=== PATIENT | female | born 1960 | race Caucasian/White ===

== ENCOUNTER 2020-12-05 11:43 | Outpatient (REF) | payer OTHER, SELFPAY ==
--- NOTE | ~2020-12-05 | XR_ITS ---
EXAMINATION: XR BILATERAL HIPS WITH AP PELVIS CLINICAL INFORMATION: Pain in unspecified hip. COMPARISON: None TECHNIQUE: AP view of the pelvis and single views of each hip were obtained. FINDINGS: Visualized osseous structures are intact and normal in pattern and mineralization and cortication. There is sclerosis along the superior margin of the bilateral acetabula and minimal soft tissue calcification at the superolateral aspect of the right acetabulum. Minimal degenerative change of the sacroiliac joints. Pubic symphysis is unremarkable. There is enthesopathy at the greater trochanters bilaterally, right mildly greater than left. XR/XR hips DANIEL min 3V IMPRESSION: Minimal degenerative change of the hips and enthesopathy in the region of the greater trochanters.
== END 2020-12-05 11:44 | disposition home or self-care (01) ==
LOC: HO.HMGCX 11:43
PROVIDERS: PCP Internal Medicine; Visit Provider Internal Medicine
DX: M25.551 Pain in right hip (principal); M25.552 Pain in left hip
CPT/HCPCS: 73522

== ENCOUNTER 2023-03-23 10:26 | Outpatient (AMB) | payer OTHER, SELFPAY ==
--- NOTE | 2023-03-23 10:34 | MHC.PC.OV ---
Vital Signs 03/23/23 10:36 Height 5 ft 7 in Weight 211 lb BMI 33.0 BP 100/64 Blood Pressure Location Lt brachial Position Sitting Pulse 62 Pulse Source Pulse Oximeter Pulse Oximetry (%) 97 Oxygen Delivery Method Room Air Intake Visit Reasons: 6 month Follow up HTN Intake Note: Pt is here today for 6 months follow up visit. Allergies duloxetine [Cymbalta] Allergy (Unknown, Verified 03/23/23 10:38) dizziness simvastatin Allergy (Unknown, Verified 03/23/23 10:38) weakness Medication List - Last Reconciled 03/23/23 by Tia Bates MD flu vacc [id number] 6mos up(PF) mL IM hydrochlorothiazide 12.5 mg PO DAILY latanoprost 0.005% 1 drp ophthalmic (eye) DAILY lidocaine 5% 0 patches topical lisinopril 20 mg PO BID lovastatin 20 mg PO DAILY metoprolol succinate ER 100 mg (2 x 50 mg) PO DAILY pantoprazole 40 mg PO QAM pregabalin 150 mg (2 x 75 mg) PO BID spironolactone 12.5 mg (1/2 x 25 mg) PO DAILY Tobacco use date assessed: 03/23/23 Dental Screening Dental Screen Date: 03/23/23 Did you have a dental visit in the last 12 months?: Yes Did you have a dental problem in the last 6 months where you did not have access to dental care?: No Was dental information given to patient?: Patient has dentist HPI 6 month Follow up HTN HPI Details Patient presents for the follow-up on hypertension hyperlipidemia, stable on current medications. Her younger son is getting in October. [facility] Medical History Glaucoma Dysuria Lung nodule seen on imaging study Hip pain Lumbar radiculopathy, chronic Annual physical exam Multinodular goiter Anxiety GERD (gastroesophageal reflux disease) Cervical radiculopathy Hemangioma Hyperlipidemia HTN (hypertension) Hip pain, bilateral Lower back pain Surgical History H/O colonoscopy History of esophagogastroduodenoscopy (EGD) History of hysterectomy Family History Father Bone cancer Mother Stroke Social History Housing: House Alcohol intake: never Patient Tobacco Use Status: Never used Tobacco e-Cigarette/Vaping Use: Never Used Second Hand Smoke Exposure: No service: No Current occupational status: other Cognitive needs: No Hearing needs: No Vision needs: Yes Questionnaire Thrive Questionnaire Date Thrive assessed: 10/06/22 YESSI-7 AMB Questionnaire YESSI-7 Date YESSI - 7 assessed: 10/06/22 Source: Developed by Drs. Drake Hand, Adela Cordova, Branden Yanez and colleagues, with an educational emily from [employer]. Review of Systems Const All systems reviewed & are unremarkable except as noted in HPI and below Reports no additional complaints Eyes Reports no additional complaints ENT Reports no additional complaints Card Reports no additional complaints Resp Reports no additional complaints GI Reports no additional complaints Reports no additional complaints Physical exam (Primary Care) Vital Signs: Last Vital Signs Pulse 62 03/23/23 10:36 BP 100/64 03/23/23 10:36 Pulse Ox 97 03/23/23 10:36 Oxygen Delivery Method Room Air 03/23/23 10:36 BMI result Body Mass Index 33.0 Tobacco/Smoking Status: Tobacco use Status Tobacco use date assessed 03/23/23 03/23/23 10:39 Patient Tobacco Use Status Never used Tobacco 03/23/23 10:35 e-Cigarette/Vaping Use Never Used 03/23/23 10:35 Thrive Assessment: Date of Thrive Assessment Date Thrive assessed 10/06/22 03/23/23 10:35 Const General: no acute distress HENMT Face and sinus: Yes normal facial exam Mouth: Normal oral and palatal mucosa present Throat: Yes posterior oropharynx normal Resp Effort & Inspection: normal respiratory effort Auscultation: clear to auscultation bilaterally Cardio Rhythm: regular rhythm Heart sounds: S1 normal heart sound present and S2 normal heart sound present Assessment and Plan Assessment & Plan (1) Lumbar radiculopathy, chronic: Code(s): M54.16 - Radiculopathy, lumbar region Plan: Patient requested referral to physical therapy (2) HTN (hypertension): Code(s): I10 - Essential (primary) hypertension Plan: Continue current medications (3) Hyperlipidemia: Code(s): E78.5 - Hyperlipidemia, unspecified Plan: Continue statin (4) Annual physical exam: Code(s): Z00.00 - Encounter for general adult medical examination without abnormal findings Plan: Well-balanced diet regular exercise weight loss discussed with the patient . she will return for physical in October with fasting labs before Orders: Orders PT Evaluation and Treatment Today M54.16 - Radiculopathy, lumbar region TSH reflex Free T4 6 Months E78.5 - Hyperlipidemia, unspecified, I10 - Essential (primary) hypertension, Z00.00 - Encounter for general adult medical examination without abnormal findings Comprehensive [place]. Panel Fast 6 Months E78.5 - Hyperlipidemia, unspecified, I10 - Essential (primary) hypertension, Z00.00 - Encounter for general adult medical examination without abnormal findings Complete Blood Count Auto Diff 6 Months E78.5 - Hyperlipidemia, unspecified, I10 - Essential (primary) hypertension, Z00.00 - Encounter for general adult medical examination without abnormal findings Hemoglobin A1c 6 Months E78.5 - Hyperlipidemia, unspecified, I10 - Essential (primary) hypertension, Z00.00 - Encounter for general adult medical examination without abnormal findings Microalbumin, Random (w Creat) 6 Months E78.5 - Hyperlipidemia, unspecified, I10 - Essential (primary) hypertension, Z00.00 - Encounter for general adult medical examination without abnormal findings Lipid Panel 6 Months E78.5 - Hyperlipidemia, unspecified, I10 - Essential (primary) hypertension, Z00.00 - Encounter for general adult medical examination without abnormal findings Coding Level of Care Code Est Pt Level 3 (66156) Diagnoses Lumbar radiculopathy, chronic M54.16 HTN (hypertension) I10 Hyperlipidemia E78.5 Annual physical exam Z00.00
[2023-03-23 10:36] VITALS: BP 100/64; PULSE 62; O2SAT 97; BMI 33.0
== END 2023-03-23 12:12 | disposition home or self-care (01) ==
PROVIDERS: PCP Internal Medicine; Visit Provider Internal Medicine
DX: M54.16 Radiculopathy, lumbar region (principal); I10 Essential (primary) hypertension; E78.5 Hyperlipidemia, unspecified; Z00.00 Encounter for general adult medical examination without abnormal findings
CPT/HCPCS: 99213

== ENCOUNTER 2023-10-12 10:24 | Outpatient (AMB) | payer MEDICARE, SELFPAY ==
[2023-10-12 10:27] VITALS: BP 104/64; PULSE 62; O2SAT 97; BMI 33.2
--- NOTE | 2023-10-12 10:27 | MHC.PC.OV ---
Vital Signs 10/12/23 10:27 Height 5 ft 7 in Weight 212 lb BMI 33.2 BP 104/64 Blood Pressure Location Rt brachial Position Sitting Pulse 62 Pulse Source Pulse Oximeter Pulse Oximetry (%) 97 Oxygen Delivery Method Room Air Intake Visit Reasons: Annual PE Intake Note: Pt is here today for PE. Allergies duloxetine [Cymbalta] Allergy (Unknown, Verified 10/12/23 10:29) dizziness simvastatin Allergy (Unknown, Verified 10/12/23 10:29) weakness Medication List - Last Reconciled 10/12/23 by Tia Bates MD flu vacc [id number] 6mos up(PF) mL IM hydrochlorothiazide 12.5 mg PO DAILY latanoprost 0.005% 1 drp ophthalmic (eye) DAILY lidocaine 5% 0 patches topical lisinopril 20 mg PO BID lovastatin 20 mg PO DAILY metoprolol succinate ER 100 mg (2 x 50 mg) PO DAILY pantoprazole 40 mg PO QAM pregabalin 150 mg (2 x 75 mg) PO BID spironolactone 12.5 mg (1/2 x 25 mg) PO DAILY Tobacco use date assessed: 10/12/23 Dental Screening Dental Screen Date: 10/12/23 Did you have a dental visit in the last 12 months?: Yes Did you have a dental problem in the last 6 months where you did not have access to dental care?: No Was dental information given to patient?: Patient has dentist HPI Annual PE HPI Details Pt presents for PE. Patient's son is getting in [place] next week [facility] Medical History (Updated 10/12/23 @ 11:20 by Tia Bates MD) Glaucoma Dysuria Lung nodule seen on imaging study Hip pain Lumbar radiculopathy, chronic Annual physical exam Multinodular goiter Anxiety GERD (gastroesophageal reflux disease) Cervical radiculopathy Hemangioma Hyperlipidemia HTN (hypertension) Hip pain, bilateral Lower back pain Surgical History H/O colonoscopy History of esophagogastroduodenoscopy (EGD) History of hysterectomy Family History Father Bone cancer Mother Stroke Social History Housing: House Alcohol intake: never Patient Tobacco Use Status: Never used Tobacco e-Cigarette/Vaping Use: Never Used Second Hand Smoke Exposure: No service: No Current occupational status: other Cognitive needs: No Hearing needs: No Vision needs: Yes Questionnaire PHQ-9 Over the last 2 weeks, how often have you been bothered by any of the following problems? 1. Little interest or pleasure in doing things: not at all 2. Feeling down, depressed, or hopeless: not at all 3. Trouble falling or staying asleep, or sleeping too much: not at all 4. Feeling tired or having little energy: not at all 5. Poor appetite or overeating: not at all 6. Feeling bad about yourself - or that you are a failure or have let yourself or your family down: not at all 7. Trouble concentrating on things, such as reading the newspaper or watching television: not at all 8. Moving or speaking so slowly that other people could have noticed. Or the opposite - being so fidgety or restless that you have been moving around a lot more than usual: not at all 9. Thoughts that you would be better off or of hurting yourself in some way: not at all Total score: 0 Depression Screening Interpretation: Negative Depression Screening Done: Yes Source: Developed by Drs. Drake Hand, Adela Cordova, Branden Yanez and colleagues, with an educational emily from [employer]. Thrive Questionnaire Date Thrive assessed: 10/12/23 I am a: Patient What is your living situation today?: I have a steady place to live Within the past 12 months, did the food you bought not last and you didn't have the money to get more?: Never true Within the past 12 months, did you worry whether your food would run out before you got money to buy more?: Never true Do you have trouble paying for medicines?: No Do you have trouble getting transportation to medical appointments?: No Do you have trouble paying your heating and electricity bill?: No Do you have trouble taking care of your child, family member or friend?: No Do you have trouble with day-to-day activities such as bathing, preparing meals, shopping, managing finances, etc.?: No Are you currently unemployed and looking for a job?: No Are you interested in more education?: No Please select the resources that you would like help with: None THRIVE Score: 0 AUDIT C Alcohol Use Questionnaire (AUDIT-C) 1. How often do you have a drink containing alcohol?: Never 3. How often do you have six or more drinks on one occasion?: Never Total Score: 0 YESSI-7 AMB Questionnaire YESSI-7 Date YESSI - 7 assessed: 10/12/23 Feeling nervous, anxious, or on edge: 0 = Not at all Not being able to stop or control worryin = Not at all Worrying too much about different things: 0 = Not at all Trouble relaxin = Not at all Being so restless that it is hard to sit still: 0 = Not at all Becoming easily annoyed or irritable: 0 = Not at all Feeling afraid as if something awful might happen: 0 = Not at all Total YESSI-7 score (0-4 normal; 5-9 mild; 10-14 moderate; 15-21 severe): 0 Source: Developed by Drs. Drake Hand, Adela Cordova, Branden Yanez and colleagues, with an educational emily from [employer]. Review of Systems Const All systems reviewed & are unremarkable except as noted in HPI and below Reports no additional complaints Eyes Reports no additional complaints ENT Reports no additional complaints Card Reports no additional complaints Resp Reports no additional complaints GI Reports no additional complaints Reports no additional complaints Musc Reports no additional complaints Physical exam (Primary Care) Vital Signs: Last Vital Signs Pulse 62 10/12/23 10:27 BP 104/64 10/12/23 10:27 Pulse Ox 97 10/12/23 10:27 Oxygen Delivery Method Room Air 10/12/23 10:27 BMI result Body Mass Index 33.2 Tobacco/Smoking Status: Tobacco use Status Tobacco use date assessed 10/12/23 10/12/23 10:32 Patient Tobacco Use Status Never used Tobacco 10/12/23 10:32 e-Cigarette/Vaping Use Never Used 10/12/23 10:27 PHQ-9: PHQ-9 Score PHQ-9: Total score 0 10/12/23 10:32 Depression Screening Interpretation: Negative Thrive Assessment: Date of Thrive Assessment Date Thrive assessed 10/12/23 10/12/23 10:32 Const General: no acute distress HENMT Head: Yes normal to inspection Ears: hearing grossly normal bilaterally Face and sinus: Yes normal facial exam Mouth: Normal oral and palatal mucosa present Eyes General: appearance normal, both eyes and all related structures Neck Neck: Yes no lymphadenopathy and Yes supple Thyroid: diffusely enlarged Resp Effort & Inspection: normal respiratory effort Auscultation: clear to auscultation bilaterally Cardio Rhythm: regular rhythm Heart sounds: S1 normal heart sound present and S2 normal heart sound present GI Inspection: Yes normal to inspection Palpation (GI): Soft to palpation Percussion: Yes normal to percussion Auscultation: normal bowel sounds Assessment and Plan Assessment & Plan (1) Multinodular goiter: Comment: Kenzie's thyroiditis, 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 She is up-to-date with mammogram and colonoscopy Pap smear by director center (5) HTN (hypertension): Code(s): I10 - Essential (primary) hypertension Plan: Continue current medications follow-up in 6 months Coding Level of Care Code Est Pt Prev Care 40-64y(68958) Diagnoses Multinodular goiter E04.2 Lung nodule seen on imaging study R91.1 Hyperlipidemia E78.5 Annual physical exam Z00.00 HTN (hypertension) I10
== END 2023-10-12 11:21 | disposition home or self-care (01) ==
PROVIDERS: Visit Provider Internal Medicine
DX: E04.2 Nontoxic multinodular goiter (principal); R91.1 Solitary pulmonary nodule; E78.5 Hyperlipidemia, unspecified; Z00.00 Encounter for general adult medical examination without abnormal findings; I10 Essential (primary) hypertension
CPT/HCPCS: 99396

== ENCOUNTER 2024-03-28 09:29 | Outpatient (AMB) | payer MEDICARE, SELFPAY ==
[2024-03-28 09:35] VITALS: BP 110/70; PULSE 57; O2SAT 97; BMI 33.8
--- NOTE | 2024-03-28 09:35 | MHC.PC.OV ---
Vital Signs 03/28/24 09:35 Height 5 ft 7 in Weight 216 lb BMI 33.8 BP 110/70 Blood Pressure Location Lt brachial Position Sitting Pulse 57 Pulse Source Pulse Oximeter Pulse Oximetry (%) 97 Oxygen Delivery Method Room Air Intake Visit Reasons: 6 months f/u Intake Note: Pt is here today for 6 montha follow up visit. Allergies duloxetine [Cymbalta] Allergy (Unknown, Verified 03/28/24 09:36) dizziness simvastatin Allergy (Unknown, Verified 03/28/24 09:36) weakness Medication List - Last Reconciled 03/28/24 by Tia Bates MD flu vacc [id number] 6mos up(PF) mL IM hydrochlorothiazide 12.5 mg PO DAILY latanoprost 0.005% 1 drp ophthalmic (eye) DAILY lidocaine 5% 0 patches topical lisinopril 20 mg PO BID lovastatin 20 mg PO DAILY metoprolol succinate ER 100 mg (2 x 50 mg) PO DAILY pantoprazole 40 mg PO QAM pregabalin 150 mg (2 x 75 mg) PO BID spironolactone 12.5 mg (1/2 x 25 mg) PO DAILY Tobacco use date assessed: 03/28/24 Fall risk assessment: No Falls in past year Last assessed Fall Risk: 03/28/24 Dental Screening Dental Screen Date: 10/12/23 HPI 6 months f/u HPI Details Patient presents for the follow-up hypertension hyperlipidemia controlled on current medications. She complains of chronic right buttock pain worse when starting to walk occasionally radiating to the thigh. Patient denies weakness or numbness in extremities. She has a chronic lower back pain and has been doing home stretching exercises on and off but not daily. [facility] Medical History Glaucoma Dysuria Lung nodule seen on imaging study Hip pain Lumbar radiculopathy, chronic Annual physical exam Multinodular goiter Anxiety GERD (gastroesophageal reflux disease) Cervical radiculopathy Hemangioma Hyperlipidemia HTN (hypertension) Hip pain, bilateral Lower back pain Surgical History H/O colonoscopy History of esophagogastroduodenoscopy (EGD) History of hysterectomy Family History Father Bone cancer Mother Stroke Social History Housing: House Alcohol intake: never Patient Tobacco Use Status: Never used Tobacco e-Cigarette/Vaping Use: Never Used Second Hand Smoke Exposure: No service: No Current occupational status: other Cognitive needs: No Hearing needs: No Vision needs: Yes Questionnaire Thrive Questionnaire Date Thrive assessed: 10/12/23 YESSI-7 AMB Questionnaire YESSI-7 Date YESSI - 7 assessed: 10/12/23 Source: Developed by Drs. Drake Hand, Adela Cordova, Branden Yanez and colleagues, with an educational emily from [employer]. Review of Systems Const All systems reviewed & are unremarkable except as noted in HPI and below Card Reports no additional complaints Resp Reports no additional complaints GI Reports no additional complaints Reports no additional complaints Physical exam (Primary Care) Vital Signs: Last Vital Signs Pulse 57 03/28/24 09:35 BP 110/70 03/28/24 09:35 Pulse Ox 97 03/28/24 09:35 Oxygen Delivery Method Room Air 03/28/24 09:35 BMI result Body Mass Index 33.8 Tobacco/Smoking Status: Tobacco use Status Tobacco use date assessed 03/28/24 03/28/24 09:54 Patient Tobacco Use Status Never used Tobacco 03/28/24 09:54 e-Cigarette/Vaping Use Never Used 03/28/24 09:36 Thrive Assessment: Date of Thrive Assessment Date Thrive assessed 10/12/23 03/28/24 09:36 Const General: no acute distress Neck Neck: Yes supple Resp Auscultation: clear to auscultation bilaterally Cardio Rhythm: regular rhythm Heart sounds: S1 normal heart sound present and S2 normal heart sound present Back/Spine/Pelvis Other: Paraspinal tenderness in the lower lumbar region, straight leg rising 90 degrees bilaterally. 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
== END 2024-03-28 10:44 | disposition home or self-care (01) ==
PROVIDERS: PCP Internal Medicine; Visit Provider Internal Medicine
DX: E04.2 Nontoxic multinodular goiter (principal); M54.16 Radiculopathy, lumbar region; I10 Essential (primary) hypertension

== ENCOUNTER → 2024-03-28 09:29 | Outpatient (BNVA) | payer MEDICARE, SELFPAY | PROVIDERS: PCP Internal Medicine; Visit Provider Internal Medicine | DX: E04.2 Nontoxic multinodular goiter (principal); M54.16 Radiculopathy, lumbar region; I10 Essential (primary) hypertension | CPT/HCPCS: 99212 ==

== ENCOUNTER 2024-07-16 10:57 | Outpatient (AMB) | payer MEDICARE, SELFPAY ==
[2024-07-16 11:08] VITALS: BP 120/70; PULSE 65; RESP 18; TEMP 36.8; O2SAT 97; BMI 33.8
--- NOTE | 2024-07-16 11:08 | A.OFFPC_ITS ---
Vital Signs 07/16/24 11:08 Height 5 ft 7 in Weight 216 lb BMI 33.8 BP 120/70 Blood Pressure Location Lt brachial Position Sitting Respiration 18 Pulse 65 Pulse Source Pulse Oximeter Temp 98.3 F Temp Source Oral Pulse Oximetry (%) 97 Oxygen Delivery Method Room Air Intake Visit Reasons: Urinary tract infection Intake Note: Pt is here today for a sick visit. Pt c/o frequent urination since Tuesday. Allergies duloxetine [Cymbalta] Allergy (Unknown, Verified 03/28/24 09:36) dizziness simvastatin Allergy (Unknown, Verified 03/28/24 09:36) weakness Medication List - Last Reconciled 07/16/24 by Tia Bates MD estradiol 0.01%(0.1mg/gram) 1 g vaginal 2XW flu vacc [id number] 6mos up(PF) mL IM hydrochlorothiazide 12.5 mg PO DAILY latanoprost 0.005% 1 drp ophthalmic (eye) DAILY lidocaine 5% 0 patches topical lisinopril 20 mg PO BID lovastatin 20 mg PO DAILY metoprolol succinate ER 100 mg (2 x 50 mg) PO DAILY pantoprazole 40 mg PO QAM pregabalin 150 mg (2 x 75 mg) PO BID spironolactone 12.5 mg (1/2 x 25 mg) PO DAILY Tobacco use date assessed: 07/16/24 Fall risk assessment: No Falls in past year Last assessed Fall Risk: 07/16/24 Dental Screening Dental Screen Date: 07/16/24 Did you have a dental visit in the last 12 months?: Yes Did you have a dental problem in the last 6 months where you did not have access to dental care?: No Was dental information given to patient?: Patient has dentist HPI Urinary tract infection HPI Details Pt c/o increased urinary frequency intermittent dysuria for 3 days. Patient denies fever chills nausea vomiting flank pain. She noticed an asymmetry in her right breast a few weeks ago. Patient had negative mammogram in the summer. [facility] Medical History Glaucoma Dysuria Lung nodule seen on imaging study Hip pain Lumbar radiculopathy, chronic Annual physical exam Multinodular goiter Anxiety GERD (gastroesophageal reflux disease) Cervical radiculopathy Hemangioma Hyperlipidemia HTN (hypertension) Hip pain, bilateral Lower back pain Surgical History H/O colonoscopy History of esophagogastroduodenoscopy (EGD) History of hysterectomy Family History Father Bone cancer Mother Stroke Social History Housing: House Alcohol intake: never Patient Tobacco Use Status: Never used Tobacco e-Cigarette/Vaping Use: Never Used Second Hand Smoke Exposure: No service: No Current occupational status: other Cognitive needs: No Hearing needs: No Vision needs: Yes Questionnaire PHQ-9 Over the last 2 weeks, how often have you been bothered by any of the following problems? 1. Little interest or pleasure in doing things: nearly every day 2. Feeling down, depressed, or hopeless: not at all 3. Trouble falling or staying asleep, or sleeping too much: not at all 4. Feeling tired or having little energy: not at all 5. Poor appetite or overeating: not at all 6. Feeling bad about yourself - or that you are a failure or have let yourself or your family down: not at all 7. Trouble concentrating on things, such as reading the newspaper or watching television: not at all 8. Moving or speaking so slowly that other people could have noticed. Or the opposite - being so fidgety or restless that you have been moving around a lot more than usual: not at all 9. Thoughts that you would be better off or of hurting yourself in some way: not at all Total score: 3 Depression Screening Interpretation: Negative Depression Screening Done: Yes 28492 - PHQ-9 Billing: Yes Source: Developed by Drs. Drake Hand, Adela Cordova, Branden Yanez and colleagues, with an educational emily from [employer]. Thrive Questionnaire Date Thrive assessed: 07/16/24 I am a: Patient What is your living situation today?: I have a steady place to live Within the past 12 months, did the food you bought not last and you didn't have the money to get more?: Never true Within the past 12 months, did you worry whether your food would run out before you got money to buy more?: Never true Do you have trouble paying for medicines?: No Do you have trouble getting transportation to medical appointments?: No Do you have trouble paying your heating and electricity bill?: No Do you have trouble taking care of your child, family member or friend?: No Do you have trouble with day-to-day activities such as bathing, preparing meals, shopping, managing finances, etc.?: No Are you currently unemployed and looking for a job?: No Are you interested in more education?: No Please select the resources that you would like help with: None THRIVE Score: 0 AUDIT C Alcohol Use Questionnaire (AUDIT-C) 1. How often do you have a drink containing alcohol?: Never 3. How often do you have six or more drinks on one occasion?: Never Total Score: 0 YESSI-7 AMB Questionnaire YESSI-7 Date YESSI - 7 assessed: 07/16/24 Feeling nervous, anxious, or on edge: 0 = Not at all Not being able to stop or control worryin = Not at all Worrying too much about different things: 0 = Not at all Trouble relaxin = Not at all Being so restless that it is hard to sit still: 0 = Not at all Becoming easily annoyed or irritable: 0 = Not at all Feeling afraid as if something awful might happen: 0 = Not at all Total YESSI-7 score (0-4 normal; 5-9 mild; 10-14 moderate; 15-21 severe): 0 Source: Developed by Drs. Drake Hand, Adela Cordova, Branden Yanez and colleagues, with an educational emily from [employer]. YESSI-7 Assessment Billing YESSI-7 Assessment Tool: YESSI-7 Assessment 85804 Review of Systems Const All systems reviewed & are unremarkable except as noted in HPI and below ENT Reports no additional complaints Card Reports no additional complaints Resp Reports no additional complaints GI Reports no additional complaints Reports no additional complaints Physical exam (Primary Care) Vital Signs: Last Vital Signs Temp 98.3 F 07/16/24 11:08 Pulse 65 07/16/24 11:08 Resp 18 07/16/24 11:08 BP 120/70 07/16/24 11:08 Pulse Ox 97 07/16/24 11:08 Oxygen Delivery Method Room Air 07/16/24 11:08 BMI result Body Mass Index 33.8 Tobacco/Smoking Status: Tobacco use Status Tobacco use date assessed 07/16/24 07/16/24 11:24 Patient Tobacco Use Status Never used Tobacco 07/16/24 11:10 e-Cigarette/Vaping Use Never Used 07/16/24 11:10 PHQ-9: PHQ-9 Score PHQ-9: Total score 3 07/16/24 11:30 Depression Screening Interpretation: Negative Thrive Assessment: Date of Thrive Assessment Date Thrive assessed 07/16/24 07/16/24 11:15 Const General: no acute distress Chest Breast/axilla inspection: normal inspection of the breasts Breast/axilla palpation: abnormal palpation of the breast (Right breast 09:00 o'clock 2 cm from nipple palpable nodule mobile nontende) Resp Effort & Inspection: normal respiratory effort Auscultation: clear to auscultation bilaterally Cardio Rhythm: regular rhythm Heart sounds: S1 normal heart sound present and S2 normal heart sound present Results AMB Urinalysis, Automated UA Leukoctes 0 Chante/uL Last Edit by REGI Watt on 07/16/24 11:32 UA Nitrite Negative Last Edit by REGI Watt on 07/16/24 11:32 UA Urobilinogen 0.2 mg/dL Last Edit by REGI Watt on 07/16/24 11: 32 UA Protein 15 mg/dL Last Edit by REGI Watt on 07/16/24 11:32 UA pH 6.5 Last Edit by REGI Watt on 07/16/24 11:32 UA Blood 80 Dhruv/uL Last Edit by REGI Watt on 07/16/24 11:32 2+ Elsy Mackay 07/16/24 11:32 UA Specific [place] 1.010 Last Edit by REGI Watt on 07/16/24 11 :32 UA Ketone Negative Last Edit by REGI Watt on 07/16/24 11:32 UA Bilirubin 0 mg/dL Last Edit by REGI Watt on 07/16/24 11:32 UA Glucose 0 mg/dL Last Edit by REGI Watt on 07/16/24 11:32 Results Reviewed Results Reviewed: Laboratory Last Values Urine pH (Auto) 6.5 07/16/24 11:30 Specific [place] (Auto) 1.010 07/16/24 11:30 Urine Protein (Auto) 15 mg/dL 07/16/24 11:30 Glucose (UA)(Auto) 0 mg/dL 07/16/24 11:30 Urine Ketones (Auto) Negative 07/16/24 11:30 Urine Blood (Auto) 80 Dhruv/uL 07/16/24 11:30 Urine Nitrite (Auto) Negative 07/16/24 11:30 Urine Bilirubin (Auto) 0 mg/dL 07/16/24 11:30 Urine Urobilinogen (Auto) 0.2 mg/dL 07/16/24 11:30 Leukocyte Esterase (Auto) 0 Chante/uL 07/16/24 11:30 Coding Level of Care Code Est Pt Level 4 (32414) Diagnoses Breast mass, right N63.10 Dysuria R30.0 HTN (hypertension) I10 Additional Codes YESSI-7 Assessment Billing - YESSI-7 Assessment Tool: YESSI-7 Assessment 47128 ([id number]) PHQ-9 - 62117 - PHQ-9 Billing: Yes ([id number]) Assessment & Plan Assessment & Plan (1) Breast mass, right: Comment: 9 oclock Code(s): N63.10 - Unspecified lump in the right breast, unspecified quadrant Category: Medical Plan: Referred for diagnostic mammogram and ultrasound at [facility] (2) Dysuria: Code(s): R30.0 - Dysuria Category: Medical Plan: UA is negative culture will be obtained, Macrobid sent to the pharmacy. For urinary frequency and stress incontinence estradiol vaginal cream twice a week will be tried (3) HTN (hypertension): Code(s): I10 - Essential (primary) hypertension Category: Medical Plan: Continue medications Orders: Orders Hemoglobin A1c Today E78.5 - Hyperlipidemia, unspecified, I10 - Essential (primary) hypertension US breast RT complete Today N63.10 - Unspecified lump in the right breast, unspecified quadrant AMB Urinalysis Automated Today Z13.9 - Encounter for screening, unspecified Comprehensive Met. Panel Today E78.5 - Hyperlipidemia, unspecified, I10 - Essential (primary) hypertension Urine Culture Today R30.0 - Dysuria, R35.0 - Frequency of micturition MM diagnostic mammo unilat RT Today N63.10 - Unspecified lump in the right breast, unspecified quadrant Medications: New estradiol 0.01%(0.1mg/gram) 1 g vaginal 2XW 42.5 grams 2RF nitrofurantoin monohyd/m-cryst 100 mg (Macrobid) must administer with a meal/food 100 mg PO Q12H 7 days 14 caps 0RF
--- OUTSIDE RECORDS SUMMARY | 2024-07-16 12:06 | XMS_ITS | Data Portability ---
Author Organization [facility], PAIN OFFICE Address [address] [facility],[address] [place] [address] Care Team Providers Care Pump Stitcher Name Role Phone CYN AG Primary Care Provider [phone] JENIFER MCDONALD Referring Provider [phone] Assessment Encounter Date Assessment Date Assessment LastModified by Organization Details LastModified Time 06/22/2018 06/22/2018 Louise Gurrola is a 56 year old woman with complaints of pain in left upper extremity. She is S/P ACDF C4-6 level and has persistent pain. On exam, she has pain on flexion. Spurling's sign is positive on the left. She is on lyrica and is adding Cymbalta for pain control. She has been doing physical therapy and also a home exercise program with persistent pain.MRI Cervical spine shows postoperative and degenerative changes in the cervical spine with mild to moderate right neural foraminal narrowing and moderate left neural foraminal narrowing at the C4-5 level .MRI Thoracic spine shows small left pleural effusion. No significant change in T8 lesion with paravertebral and epidural soft tissue component possibly reflecting hemangioma. Postoperative changes in the thoracic spine are stable, with myelomalacia again noted.I will order a bone scan . She will follow up to review the same. [email or web address] Not available 07/07/2018 09:20:15 08/02/2018 08/02/2018 Louise Gurrola is a 56 year old woman with complaints of pain in left upper extremity. She is S/P ACDF C4-6 level and has persistent pain. On exam, she has pain on flexion. Spurling's sign is positive on the left. She is on lyrica and is adding Cymbalta for pain control. She has been doing physical therapy and also a home exercise program with persistent pain.MRI Cervical spine shows postoperative and degenerative changes in the cervical spine with mild to moderate right neural foraminal narrowing and moderate left neural foraminal narrowing at the C4-5 level .MRI Thoracic spine shows small left pleural effusion. No significant change in T8 lesion with paravertebral and epidural soft tissue component possibly reflecting hemangioma. Postoperative changes in the thoracic spine are stable, with myelomalacia again noted. Bone scan was benign. She will continue with Lyrica . I recommend increasing the dose to 150mg bid. She has an appointment with her PCP and will discuss the same. She can call for an appointment for cervical epidural steroid injection under fluoroscopic guidance. She needs valium prior to the procedure. [email or web address] Not available 08/07/2018 09:08:15 07/19/2022 07/19/2022 Louise Gurrola is a 61 year old woman with complaints of neck pain and low back pain. Her worse pain is in her low back and radiates into her left lower extremity with numbness and weakness for the past one month. She is starting physical therapy. On exam, she has pain on flexion and a positive straight leg raising test on the left. I recommend a MRI lumbar spine to elucidate the cause of her pain. She will follow up to review the same and for further treatment plans. I have encouraged to continue physical therapy and discussed the importance of core strengthening. tmanikantan Not available 07/19/2022 14:06:57 09/28/2022 09/28/2022 Louise Gurrola is a 61 year old woman with complaints of neck pain and low back pain. Her worse pain is in her low back and radiates into her left lower extremity with numbness and weakness for the past one month. She is starting physical therapy. On exam, she has pain on flexion and a positive straight leg raising test on the left. MRI Lumbar spine shows Mild dextroscoliosis and mild lumbar spondylosis . Especially, L4-L5 level has a grade 1 anterolisthesis. She is here for a trial of Lumbar epidural steroid injections under fluoroscopic guidance .risks and benefits of the procedure were discussed in detail. She wishes to proceed. She will follow up in four weeks. [email or web address] Not available 09/28/2022 15:24:51 12/31/2022 12/31/2022 Louise Gurrola is a 62 year old woman with neck pain radiating into left upper back. She has myofascial pain syndrome in her left upper back. Trigger points were palpated with reproduction of her pain in??the left trapezius muscle and left paraspinal muscle in??the cervical spine. Trial of trigger point injections were discussed with her. The risks and benefits of the procedure were discussed . She will call for an appointment. tmanikantan Not available 01/13/2023 16:33:55 Plan of Treatment Reminders Order Date Submit Date Provider Last Modified By Organization Details Last Modified Time Details Appointments None recorded. Lab None recorded. Referral None recorded. Procedures None recorded. Surgeries None recorded. Imaging NM, bone scan, whole body 2018 019 [facility], [address] [place], [address], 9 10:19:33 MRI, lumbar spine, w/o contrast - Approval in place - [id number]- Please schedule with patient expires 01/15/20232022 023 [facility] ([facility]), [address] [place], [address], 3 17:45:01 Medication Orders None recorded. Patient TargetsNo targets recorded. Patient Instructions Encounter Date Encounter Id Patient Instructions Last Modified By Organization Details Last Modified Time 06/22/2018 [id number] She was advised against bed rest lasting longer than four days and to continue activities as tolerated. [email or web address] Not available 07/07/2018 09:17:58 08/02/2018 [id number] She was advised against bed rest lasting longer than four days and to continue activities as tolerated. tmanikantan Not available 08/07/2018 09:06:36 07/19/2022 [id number] She was advised against bed rest lasting longer than four days and to continue activities as tolerated. tmanikantan Not available 07/19/2022 14:06:07 09/28/2022 [id number] She was advised against bed rest lasting longer than four days and to continue activities as tolerated. tmanikantan Not available 09/28/2022 15:23:30 12/31/2022 [id number] She was advised against bed rest lasting longer than four days and to continue activities as tolerated. tmanikantan Not available 01/24/2023 10:57:04 Reason for Referral None Reported. Results Created Date Observation Date Name Description Value Unit Range Abnormal Flag Note LastModifiedBy Organization Detail LastModifiedTime 08/02/19 19 07/25/2018 NM, bone scan, whole body No observ ation record ed. [facility] (Imaging) [address] [facility], [place], [address], 08/03/2018 12:49:22 07/22/1907/21/2022 MRI, lumba r spine , w/o contr ast [facility] Access ion Number : [id number] Name: Mariluz oglesby, Louise [facility] Record Number : [id number] Date of : 1960 Date of Exam: 2022 Referr ing Physic any: [facility] [address] [place] [address] Exam: MR Lumbar Spine (C-) CPT 88200 Room Descri ption: [facility] Norberto 1.5 Mob MRI of the lumbar spine withou t contra st. HISTOR Y: Low back pain. Left leg numbne ss and pain. COMPAR BRETT: None. FINDIN GS: The conus medull taniya has a normal calibe r and signal intens ities. There is a mild dextro scolio sis of the lumbar spine. A mild gomez listhe sis of L4 over L5 is seen withou t bilate ral spondy lolysi s. No verteb ral body fractu re is seen. The bone marrow signal s are within normal limits . Mild margin al osteop hytes and disc desicc ation are noted diffus nora. L1-L2 and L2-L3 levels are unrema rkable . L3-L4 level has a mild disc bulge withou t disc hernia tion. Mild stenos is withou t nerve root compre ssion. The ligame ntum flavum are mildly hypert rophic . There is mild degene rative facet arthro nela bilate rally. Mild neurof oramin al narrow ing. L4-L5 level has a grade 1 gomez listhe sis withou t spondy lolysi s. Axial images show a mild disc bulge withou t disc hernia tion. Mild stenos is withou t nerve root compre ssion. The ligame ntum flavum are mildly hypert rophic . The facet joints are modera tely degene rative . Modera te right and mild left neural forame n narrow ing. L5-S1 level has a minima l disc bulge. No stenos is or nerve root compre ssion. The ligame ntum flavum are mildly hypert rophic . The facet joints are mildly degene rative . Mild bilate ral neural forame n narrow ing. A small Tarlov cyst at S1 level. The visual ized abdomi nal aorta and kidney s are unrema rkable . IMPRES MERRILL: Mild dextro scolio sis and mild lumbar spondy losis as descri bed above. Especi ally, L4-L5 level has a grade 1 gomez listhe sis withou t spondy lolysi s. Electr onical ly Signed By: Tyron Pickard MD [facility] ([facility]) [address] [place], [address], 07/26/2022 13:21:52 Result Notes None recorded. Problems Name Problem SNOMED Code Status Onset Date Resolution Date Notes Provider Name and Address Organization Details Recorded Time Cervical radiculopa thy 14451909 Active Christophe oglesby MD [address] [facility] , [address], [place], [address], [place] [facility] 8 09:54:01 Spinal stenosis in cervical region 30651160 Active Christophe oglesby MD [address] , [address], [place], [address], [place] [facility] 8 09:54:14 Degenerati on of cervical interverte bral disc 05361252 Active Christophe oglesby MD [address] , [address], [place], [address], [place] [facility] 8 09:54:27 Lesion of thoracic spine 644139944 Active Hemangioma S/P surgery Christophe oglesby MD [address] , [address], [place], [address], [place] [facility] 8 09:55:41 Neoplasm of nervous system 455020940 Active Christophe oglesby MD [address] [facility] , [address], [place], [address], [place] [facility] 8 14:37:45 Muscle pain 55320432 Active Christophe oglesby MD [address] [facility] , [address], [place], [address], [place] [facility] 8 10:34:37 Problem Notes None recorded. Procedures Surgical History Date Name Laterality Status Provider Name and Address Organization Details Recorded Time 09/29/19 Lumbar Epidural steroid injection under fluoroscopic guidance completed Christophe Martinez MD [address] [facility] , [address], [place], [address], [place] [facility] 09/28/2022 15:22:56 03/09/20 18 Trigger Point Injections under ultrasound guidance completed Christophe Martinez MD [address] [facility] , [address], [place], [address], [place] [facility] 03/11/2018 10:36:13 Other completed Marcelina Castillo [place] [facility] 08/04/2017 14:03:45 Other completed Marcelina Castillo [place] [facility] 08/04/2017 14:06:10 Imaging Results Imaging Date Name Status LastModified by Organiz ation Details LastModified Time 07/25/2018 NM, bone scan, whole body completed [facility] (Imaging) [address] [place], [address], 08/03/2018 12:49:22 07/21/2022 MRI, lumbar spine, w/o contrast [email or web address]) [address] [place], [address], 07/26/2022 13:21:52 Procedure Notes None recorded. Medical Equipment None Reported. Allergies Allergen ID Allergen Name Allergen Category Reaction Reaction Severity Criticality Documentation Date Start Date Code Code System Note Provider Name and Address Organization Details Recorded Time 43521 simvastat in medicatio n myalgias (muscle pain) Not available Not available 08/04/2017 36376 RxNorm ROSANNE [facility] 8 14:00:14 Medications Name Sig Start Date Stop Date Status Note LastModified by Organization Details LastModified Time amoxicillin 500 mg capsule 09/12 completed Not Available Not Available Not Available latanoprost 0.005 % eye drops INSTILL ONE DROP IN EACH EYE ONCE DAILY active Not Available Not Available No t Available metoprolol succinate ER 50 mg tablet,exte nded release 24 hr TAKE 2 TABLETS BY MOUTH DAILY active Not Available Not Available No t Available hydrocodone 5 mg-acetamin ophen 325 mg tablet 07/19 completed Not Available Not Available Not Available lisinopril 20 mg tablet TAKE ONE TABLET BY MOUTH TWICE A DAY active Not Available Not Available No t Available tramadol 50 mg tablet active Not Available Not Available No t Available spironolact one 25 mg tablet TAKE 1/2 TABLET BY MOUTH DAILY active Not Available Not Available No t Available lorazepam 0.5 mg tablet 07/19 completed Not Available Not Available Not Available hydrocortis one-acetic acid 1 %-2 % ear drops INSTILL THREE DROPS INTO AFFECTED EAR THREE TIMES A DAY FOR 10 DAYS 07/19 completed Not Available Not Available Not Available pantoprazol e 40 mg tablet,evan yed release TAKE ONE TABLET BY MOUTH EVERY DAY IN THE MORNING active Not Available Not Available No t Available lidocaine 5 % topical patch 12 hours on and 12 hours off 2022 active Not Available Not Available Not Avai lable hydrochloro thiazide 12.5 mg capsule TAKE ONE CAPSULE BY MOUTH EVERY DAY active Not Available Not Available No t Available gabapentin 300 mg capsule 09/12 completed Not Available Not Available Not Available lovastatin 20 mg tablet TAKE ONE TABLET BY MOUTH EVERY DAY active Not Available Not Available No t Available methylpredn isolone 4 mg tablets in a dose pack 09/12 completed Not Available Not Available Not Available sertraline 50 mg tablet active Not Available Not Available Not Available doxepin 5 % topical cream 07/19 completed Not Available Not Available Not Available duloxetine 20 mg capsule,del ayed release 07/19 completed Not Available Not Available Not Available fluocinonid e 0.1 % topical cream 07/19 completed Not Available Not Available Not Available pregabalin 75 mg capsule TAKE TWO CAPSULES (150 MG) BY MOUTH TWO TIMES A DAY active Not Available Not Available No t Available chlorhexidi ne gluconate 0.12 % mouthwash 07/19 completed Not Available Not Available Not Available hydrochloro thiazide 12.5 mg tablet Take 1 tablet every day by oral route. 06/22 completed Not Available Not Available Not Available triamcinolo ne acetonide 0.147 mg/gram topical aerosol active Not Available Not Available Not Available lidocaine 5 % topical ointment 07/19 completed Not Available Not Available Not Available Yuvafem 10 mcg vaginal tablet 07/19 completed Not Available Not Available Not Available Vitals Date Recorded Body height Heart rate Oxygen saturation Oxygen saturation in Arterial blood by Pulse oximetry Systolic blood pressure Diastolic blood pressure Provider Name and Address Organization Details Last Updated DateTime 9 170.18 cm 72 /min 97 % 97 % 125 mm[Hg] 72 mm[Hg] Marcelina Castillo MD - [facility] 9 13:12:25 Date Recorded Body height Heart rate Oxygen saturation Oxygen saturation in Arterial blood by Pulse oximetry Systolic blood pressure Diastolic blood pressure Provider Name and Address Organization Details Last Updated DateTime 9 170.18 cm 60 /min 97 % 97 % 167 mm[Hg] 83 mm[Hg] Marcelina Castillo MD - [facility] 9 10:10:41 Date Recorded Heart rate Oxygen saturation Oxygen saturation in Arterial blood by Pulse oximetry Systolic blood pressure Diastolic blood pressure Provider Name and Address Organization Details Last Updated DateTime 3 72 /min 97 % 97 % 121 mm[Hg] 65 mm[Hg] Kathy Andrade MD - [facility] 3 13:13:31 Date Recorded Heart rate Oxygen saturation Oxygen saturation in Arterial blood by Pulse oximetry Systolic blood pressure Diastolic blood pressure Provider Name and Address Organization Details Last Updated DateTime 3 82 /min 97 % 97 % 140 mm[Hg] 65 mm[Hg] Kay Ayala MD - Pain [facility] 3 15:01:59 Date Recorded Body height Body mass index (BMI) Body weight Heart rate Oxygen saturation Oxygen saturation in Arterial blood by Pulse oximetry Systolic blood pressure Diastolic blood pressure Provider Name and Address Organization Details Last Updated DateTime 3 170.18 cm 32.9 kg/m2 12018.4 g 62 /min 98 % 98 % 131 mm[Hg] 70 mm[Hg] Christophe oglesby MD [address] , [address], [place], [address], [facility] 3 09:51:24 Social History Question Answer Notes LastModified by Organizat ion Details LastModified Time Tobacco Smoking Status Never Smoker Marcelina Cevallosluis fernando shaw, [facility] 08/04/2017 14:02:15 What Is Your Level Of Alcohol Consumption? 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 With Others Information not available 08/04/2017 Marital Status Informatio n not available 08/04/2017 What Was The Date Of Your Most Recent Tobacco Screening? 08/07/2018 Information not available 01/03/2019 Sex: Unknown Functional Status None recorded. Mental Status None recorded. Family History Relationship Description Onset Age of this Age Resolved Age Notes LastModified by Organization Details LastModified Time Mother Heart disease Not available 2017 14:01:58 Medical History Condition Response Anxiety Disorder Y Neuropathy/Neuralgia Y Arthritis Y GERD/Reflux Y High Cholesterol Y Cancer Y Hypertension Y Gynecological HistoryNo gynecological history recorded. Obstetrics History GPAL:G 0 P 0 0 0 0 Past Encounters Encounter ID Performer Location Encounter Start Date Encounter Closed Date Diagnosis/Indication Diagnosis SNOMED-CT Code Diagnosis ICD10 Code Diagnosis Note [id number] Christophe Martinez MD PAIN OFFICE [address] [facility] [place] [address] 08/04/2017 13:21:04 08/11/2017 14:43:14 Cervical radiculopathy 66608478 M54.12 Spinal kaycee nosis in cervical region 39641865 M48.02 Degenerati on of cervical intervertebral disc 27439865 M50.30 Lesion of thoracic spine 720114096 M99.9 [id number] Christophe Martinez MD PAIN OFFICE [address] [place] [address] 09/12/2017 08:33:15 09/15/2017 12:04:47 Cervical radiculopathy 60484131 M54.12 Spinal kaycee nosis in cervical region 72240135 M48.02 Degenerati on of cervical intervertebral disc 60141894 M50.30 Lesion of thoracic spine 006657140 M99.9 [id number] Christophe Martinez MD PAIN OFFICE [address] [place] [address] 11/14/2017 09:28:53 11/14/2017 11:35:43 Cervical radiculopathy 33908119 M54.12 Spinal kaycee nosis in cervical region 28333806 M48.02 Degenerati on of cervical intervertebral disc 47352554 M50.30 Lesion of thoracic spine 651668464 M99.9 [id number] Christophe Martinez MD PAIN OFFICE [address] [place] [address] 03/09/2018 08:27:21 03/11/2018 10:39:59 Cervical radiculopathy 29321593 M54.12 Spinal kaycee nosis in cervical region 93949548 M48.02 Degenerati on of cervical intervertebral disc 41955000 M50.30 Lesion of thoracic spine 160418800 M99.9 [id number] Christophe Martinez MD PAIN OFFICE [address] [place] [address] 06/22/2018 13:03:36 07/07/2018 09:54:11 Cervical radiculopathy 33335263 M54.12 Spinal kaycee nosis in cervical region 98920967 M48.02 Degenerati on of cervical intervertebral disc 70913268 M50.30 Lesion of thoracic spine 806016491 M99.9 [id number] Christophe Martinez MD [facility] PAIN OFFICE [address] [facility] [place] [address] 08/02/2018 09:58:36 08/07/2018 09:08:45 Cervical radiculopathy 68760376 M54.12 Spinal kaycee nosis in cervical region 29335751 M48.02 Degenerati on of cervical intervertebral disc 54145841 M50.30 Lesion of thoracic spine 801275677 M99.9 [id number] Christophe Martinez MD [facility] PAIN OFFICE [address] [facility] [place] [address] 07/19/2022 12:58:47 07/19/2022 15:23:48 Lumbar radiculopathy 957529093 M54.16 Degenerati on of lumbar intervertebral disc 90950663 M51.36 [id number] Christophe Martinez MD [facility] PAIN OFFICE [address] [facility] [place] [address] 09/28/2022 14:57:29 09/28/2022 15:27:36 Lumbar radiculopathy 877130108 M54.16 Degenerati on of lumbar intervertebral disc 87828551 M51.36 [id number] Christophe Martinez MD [facility] PAIN OFFICE [address] [facility] [place] [address] 12/31/2022 09:43:21 01/24/2023 10:59:58 Cervical radiculopathy 76285666 M54.12 Muscle pain 37253110 M79 .18 Lesion of thoracic spine 551825776 M99.9 Health Concerns Section Related Observation LastModified by Organization Detai ls LastModified Time None Recorded Concern Status LastModified by Organization Details LastModified Time None Recorded Advance Directives Directive None Recorded Payers Encounter Date Sequence Insurance Name Policy Number Policy Moore Covered Member ID Moore Member ID Guarantor Name 06/22/2018 1 [facility] (O) [id number] Louise Gurrola [id number] Louise Gurrola 08/02/2018 1 [facility] ([facility] [id number] Louise Gurrola [id number] Louise Gurrola 07/19/2022 1 [facility] ([facility]) [id number] Louise Gurrola [id number] Louise Gurrola 09/28/2022 1 [facility] ([facility]) [id number] Louise Gurrola [id number] Louise Gurrola 12/31/2022 1 [facility] ([facility]) [id number] Louise Gurrola [id number] 2 Louise Gurrola Notes Date Note Type Note Provider Name and Address Organization Details Recorded Time 06/22/2018 text/html She is here for a follow up. She continues to have neck pain radiating into left upper back and upper extremity with numbness and tingling. 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 She is taking lyrica with some pain benefit. I have reviewed her last MRIs with her. She is seeing her surgeon who operated on her thoracic spine hemangioma. MRI Thoracic spine shows small left pleural effusion. Christophe Martinez MD [address] [facility] , [address], [place], [address], [facility] 07/10/2018 10:13:41 08/02/2018 text/html She is here for a follow up to her bone scan. Bone scan shows Increased metabolic activity at T8, the site of the patient's known prior resection for hemangioma. This increased metabolic activity indicates ongoing bony metabolism. This could be the result of the original disease process. Also, this could be degenerative changes based on the posttraumatic injury and gibbus deformity. Photopenia in the right seventh rib is consistent with a rib resection.She continues to have pain in her left upper extremity but is apprehensive about GABRIEL as she is worried that her blood pressure would become high. Christophe Martinez MD [address] , [address], [place], [address], [facility] 08/07/2018 13:51:35 07/19/2022 text/html Louise Gurrola??is a 61 year old woman with complaints of low back pain radiating into left lower extremity. 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 The pain started a few months ago . She states she is very active and started to have severe pain radiating into left lower extremity with numbness and tingling. She describes the pain as a shooting pain , sharp from her left buttock region to the left leg with numbness, tingling and weakness in her left lower extremity. Current pain level is 5-10/10. Pain is aggravated by standing and walking . Pain is relieved a little with application of heat. She is unable to sleep due to positioning and awakens multiple times at night due to pain. She has no history of bladder or bowel incontinence.No recent imaging.She has trialed physical therapy with some pain benefit. She has high blood pressure and cannot take any NSAIDs as it increases her blood pressure. She takes tylenol and uses lidocaine patches with some pain benefit. 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 She sees Dr. Rangel and had a RI thoracic spine which was unchanged. She is S/P ACDF and had a recent exacerbation of her neck pain which improved. Christophe Martinez MD [address] [place] [address] , [facility], [address], [place], [address], [facility] 07/19/2022 15:35:42 09/28/2022 text/html She is here for a trial of lumbar epidural steroid injection under fluoroscopic guidance. Christophe Martniez MD [address] [place] [address] , [address], [place], [address], [facility] 09/28/2022 15:49:50 12/31/2022 text/html She is here for a follow up. She reports good ongoing pain benefit after a lumbar epidural steroid injection under fluoroscopic guidance. MRI Cervical spine shows postoperative and degenerative changes in the cervical spine with mild to moderate right neural foraminal narrowing and moderate left neural foraminal narrowing at the C4-5 level . MRI Thoracic spine shows no significant changes in T8 lesion . She continues to have pain in her left upper extremity mainly in the arm and left thumb. She has some numbness in both hands. Pain is minimal in the morning and becomes greater in the afternoon. She has muscular pain in her left mid back region.She has no history of bladder or bowel incontinence. Christopeh Martinez MD [address] [facility] , [address], [place], [address], [facility] 01/24/2023 11:06:53 OBGyn Episode No OBEpisode recorded.
--- OUTSIDE RECORDS SUMMARY | 2024-07-16 12:06 | XMS_ITS | Data Portability ---
Author Organization [facility], [address] Address [address] [place] [address] Care Team Providers Care Customs Consultant Name Role Phone CYN AG Primary Care Provider [phone] Assessment No assessment recorded. Plan of Treatment Reminders Order Date Submit Date Provider Last Modified By Organization Details Last Modified Time Details Appointments None recorded. Lab None recorded. Referral orthopedic surgeon referral - Fracture middle phalanx of left hand ring finger. need further evaluation and treatment. [address] [facility], [address], [place], [address], 3 13:56:50 Procedures None recorded. Surgeries None recorded. Imaging XR, hand, 3 or more view 2022 023 [facility], [address] [place] [address], [address], 14:38:26 Medication Orders None recorded. Patient TargetsNo targets recorded. Patient Instructions Encounter Date Encounter Id Patient Instructions Last Modified By Organization Details Last Modified Time 03/07/2023 [id number] What are common finger injuries? Common finger injuries include: ? Finger sprain ? A sprain is when a ligament tears or gets stretched too much. Ligaments are tough bands of tissue that connect bones to other bones. Symptoms of a finger sprain can include pain, swelling, stiffness, or weakness. People sometimes call this a jammed finger. ? Flexor tendon injury ? Tendons are strong bands of tissue that connect muscles to bones. In a flexor tendon injury, a tendon on the palm side of the hand is torn or cut. If the cut or tear is near the tip of the finger, it keeps the finger tip from being able to bend. The fingertip stays straight. Doctors sometimes use the term jersey finger to describe this injury. ? Extensor tendon injury ? In this injury, a tendon on the back of the hand is torn or cut. If the tear or cut is near the tip of the finger, it causes the tip of the finger to stay bent. The finger is unable to straighten. One common type of extensor tendon injury is called mallet finger . This happens when the finger joint closest to the fingernail gets hurt. Besides making the fingertip bent, mallet finger causes pain and swelling on top of the joint. Another common type of extensor tendon injury is called a boutonniere deformity. This happens when the tendon tears and slips out of place. It makes the finger joint nearest the tip of the finger stay straight, and the finger joint in the middle of the finger stay bent. ? Trigger finger ? This condition keeps a person's finger from straightening normally. When trying to straighten the finger, the finger locks or catches in a bent position. Trigger finger can also cause pain in the finger or palm. Trigger finger is caused by a problem with a tendon. Will I need tests? Probably. Your doctor or nurse will ask about your symptoms and do an exam. They will probably do an X-ray of your finger or hand. In some cases, they might also do more imaging tests, such as an ultrasound or CT or MRI scan. Imaging tests create pictures of the inside of the body. How are finger injuries treated? Treatment depends on the type of finger injury you have and how severe it is. If you have a lot of pain or a severe injury, your doctor will prescribe a strong pain medicine. If your injury is mild, your doctor might recommend that you take an qpgn-fnu-tittyll medicine for your pain. Fjol-pyf-uxjyhtz medicines include acetaminophen (sample brand name: Tylenol), ibuprofen (sample brand names: Advil, Motrin), and naproxen (sample brand name: Aleve). Treatments for your finger injury can include 1 or more of the following: ? Rest your hand. ? Keep your hand raised above the level of your heart (when possible). ? Put ice on your finger ? To reduce swelling, you can put a cold gel pack, bag of ice, or bag of frozen vegetables on the injured area every 1 to 2 hours, for 15 minutes each time. You should put a thin towel between the ice (or other cold object) and your skin. You should use the ice (or other cold object) for at least 6 hours after your injury. Some people find it helpful to ice longer, even up to 2 days after their injury. ? Wear an elastic bandage (such as an STEFANIE wrap). ? Lusi taping ? Luis taping involves taping your injured finger to the finger next to it. This is done most often to treat finger sprains. It is not done to treat tendon injuries or trigger finger. ? Wear a splint ? Splints are usually used to treat tendon injuries and trigger finger. For some of these injuries, such as mallet finger, you need to wear the splint at all times. ? Surgery ? Some people need surgery to fix a ligament or tendon. Hand surgery is usually done by a specialist called a hand surgeon. ? Physical therapy ? After your injury has healed, your doctor might recommend that you work with a physical therapist (exercise expert). They can teach you exercises to strengthen your fingers and help them move more easily. How long do finger injuries take to heal? Finger injuries can take weeks to months to heal, depending on the type of injury. It also depends on the person. Healthy children usually heal very quickly. Older adults or adults with other medical problems can take much longer to heal. Can I do anything to improve the healing process? Yes. It's important to follow all of your doctor's instructions while your finger injury is healing. For example, you might not be allowed to bend or straighten your finger for a certain amount of time. Your doctor might also recommend that you avoid certain activities. If you smoke, it can take longer for injuries to heal. If you are having trouble quitting smoking, your doctor or nurse can help. When should I call my doctor or nurse? Your doctor or nurse will tell you when to call them. In general, you should call them if: ? You have severe pain, or your pain or swelling gets worse. ? You have numbness or tingling in your fingers, or your fingers look blue or purple. ? You bent or straightened your finger, and you weren't supposed to bend or straighten it. [email or web address] Not available 03/07/2023 13:14:03 Elevate injured extremity to help decrease swelling Ice the area 15 minutes every 3-4 hours ibuprofen and/or tylenol as needed for pain Follow up with [facility] or your pcp if the injury fails to heal in the coming weeks [email or web address] Not available 03/07/2023 13:13:55 Reason for Referral Orthopedic Surgeon Referral for Fracture of middle phalanx of finger Fracture middle phalanx of left hand ring finger. need further evaluation and treatment. Fracture middle phalanx of left hand ring finger. need further evaluation and treatment. Referring Physician: Jonh Hope, Urgent Care, Encounter Date: 03/07/2023 Results Created Date Observation Date Name Description Value Unit Range Abnormal Flag Note LastModifiedBy Organization Detail LastModifiedTime 03/07/20 23 03/07/2023 XR, hand, 3 or more view No observ ation [facility] ed. [facility] [address] [place], [address], 03/07/2023 14:45:03 Result Notes None recorded. Procedures Surgical History Date Name Laterality Status Provider Name and Address Organization Details Recorded Time hysterectomy completed KRISTIAN RUBI - [facility] 03/07/2023 12:45:38 Imaging Results Imaging Date Name Status LastModified by Organiz ation Details LastModified Time 03/07/2023 XR, hand, 3 or more view [facility] [address] [place], [address], 03/07/2023 14:45:03 Procedure Notes None recorded. Medical Equipment None Reported. Allergies No known drug allergies Medications Name Sig Start Date Stop Date Status Note LastModified by Organization Details LastModified Time latanoprost 0.005 % eye drops INSTILL ONE DROP IN EACH EYE ONCE DAILY active Not Available Not Available No t Available metoprolol succinate ER 50 mg tablet,extend ed release 24 hr active Not Available Not Available Not Available lisinopril 20 mg tablet active Not Available Not Available No t Available spironolacton e 25 mg tablet active Not Available Not Available Not Available pantoprazole 40 mg tablet,delaye d release TAKE ONE TABLET BY MOUTH EVERY DAY IN THE MORNING active Not Available Not Available No t Available lidocaine 5 % topical patch APPLY TOPICALLY UP TO THREE PATCHES AT THE TIME, 12 HOURS ON, 12 HOURS OFF active Not Available Not Available No t Available hydrochloroth iazide 12.5 mg capsule TAKE ONE CAPSULE BY MOUTH EVERY DAY active Not Available Not Available No t Available lovastatin 20 mg tablet TAKE ONE TABLET BY MOUTH EVERY DAY active Not Available Not Available No t Available pregabalin 75 mg capsule active Not Available Not Available N ot Available Vitals Date Recorded Body weight Body mass index (BMI) Body height Body temperature Oxygen saturation Oxygen saturation in Arterial blood by Pulse oximetry Heart rate Respiratory rate Systolic blood pressure Diastolic blood pressure Provider Name and Address Organization Details Last Updated DateTime 3 30645.4 g 33.9 kg/m2 167.64 cm 98.5 [degF] 97 % 97 % 73 /min 16 /min 137 mm[Hg] 83 mm[Hg] KRISTIAN PORRAS PA [facility] 12:49:09 Social History Question Answer Notes LastModified by Organizat ion Details LastModified Time Tobacco Smoking Status Never Smoker KRISTIAN PORRAS null [place] [employer] [facility] 03/07/2023 12:46:25 What Is Your Level Of Alcohol Consumption? None Information not available 03/07/2023 Do You Use Any Illicit Or Recreational Drugs? No [email or web address] Information not available 03/07/2023 Sex: Unknown Functional Status None recorded. Mental Status None recorded. Family History Nothing Reported. Medical History Condition Response Gout N Cancer, liver N Thyroid disorder N Hyperthyroidism N Rheumatoid arthritis N GI bleeding N Irritable bowel syndrome N Depression N COPD N Tinnitus, unspecified ear N Pneumonia N Cancer, uterus N Mental disorder, NOS N Headaches/Migraines N Insomia N Alzheimer's disease N Anxiety Disorder N Obesity N Arthritis N Cancer N Stroke N Alcohol abuse N Liver disease N Cancer, bladder N Allergy Food/Medication N Peripheral artery disease N Oxygen dependence N Fibromyalgia N Atrial fibrillation N Tinnitus, right ear N Kidney Disease N Deep vein thrombosis DVT leg N Migraine N Disorder of circulatory system N Anxiety N Cancer, brain N Disease of pancreas N Cancer, lung N Eating disorder, unspecified N Cancer, colon N Crohn's disease N Cancer, cervical N N Cancer, breast N Cancer, skin N Coagulation defect, unspecified N Cataract N Asthma N Congestive heart failure (CHF) N Substance Abuse N Vertigo N Coronary artery disease N Pulmonary Embolism N Cancer, pancreas N Tobacco use disorder N Disease of lung N Allergic rhinitis N Joint disorder, unspecified N Menopause N Drug dependence, unspecified N Back disorder N Hypothyroidism N Disorder kidney N Sickle Cell Anemia N Cancer, ovarian N Santana's Palsy N Disorder of eye N Cancer, prostate N Allergy Seasonal N Drug abuse N Disorder of urinary system N Disorder of lymph system N Radiculopathy, site unspecified N Myoneural disorder, unspecified N Nervous system disorder N ADHD N High Cholesterol N Post-herpetic neuralgia N Aneurysm, cerebral N Tinnitus, left ear N Prostate hypertrophy, benign N Disorder of skin/subcutaneous N Osteoarthritis N Disorder of ear N Ovarian cysts N Parkinson's disease N Low back pain N Carpal tunnel syndrome N Disorder of muscle N Anemia N Kidney stone N Bipolar affective disorder N Leukemia, unspecified N Diabetes N Endocrine disorder N Disorder involving the immune mechanism N Seizure N Hyperlipidemia N Lymphoma N Emphysema, unspecified N Eczema N Diverticulitis N Dementia N Lupus N Seizure disorder N Reflux/GERD N Sleep Apnea N Cancer, bone N Disorder of thyroid N Cardiac arrhythmia, unspecified N Disorder of bone N Heart Disease N Liver Disorder N Disorder of brain N Hypertension Y Aneurysm, aortic N Osteoporosis N Gastroesophageal reflux (GERD) Y Disease of digestive system, unspecified N Gynecological HistoryNo gynecological history recorded. Obstetrics History GPAL:G 0 P 0 0 0 0 Past Encounters Encounter ID Performer Location Encounter Start Date Encounter Closed Date Diagnosis/Indication Diagnosis SNOMED-CT Code Diagnosis ICD10 Code Diagnosis Note [id number] [address] [place] [address] 01/31/2016 16:44:31 01/31/2016 17:49:16 [id number] [address] [place] [address] 03/30/2015 10:58:39 03/30/2015 11:47:56 [id number] Jonh Hope NP [address] [place] [address] 03/07/2023 11:59:02 03/07/2023 13:56:50 Contusion of left ring finger [id number] S60.042A Fracture o f middle phalanx of finger [id number] S62.625A Health Concerns Section Related Observation LastModified by Organization Detai ls LastModified Time None Recorded Concern Status LastModified by Organization Details LastModified Time None Recorded Advance Directives Directive None Recorded Payers Encounter Date Sequence Insurance Name Policy Number Policy Moore Covered Member ID Moore Member ID Guarantor Name 03/30/2015 1 [facility] [id number] Abe Gurrola [id number] 2 Louise Gurrola 01/31/2016 1 [facility] [id number] Abe Gurrola [id number] 2 Louise Gurrola 03/07/2023 1 [facility] [id number] Abe Gurrola [id number] Louise Gurrola Notes Date Note Type Note Provider Name and Address Organization Details Recorded Time 03/07/2023 text/html Wrist / Hand InjuryReported bypatient.source of patient informationpatient; Patient arrived at Urgent Care ambulatory; 62 year old female presented with her after experiencing fall at home while coming out of her shower tub. she tried to break her fall and bend her left 4th finger which is bruised and swollen and unable to bend it now. Location:left; hand Associated Symptoms:no fever;pain;swelling; redness;warmth;ecchy mosis Severity:moderate; pain level 5/10 Duration:today days; today 03/07/2023 Context:fall Hand Dominance:right Aggravating Factors:lifting; carrying; gripping; ROM Previous InjuryNo prior injury to affected body part Previous Treatmentnone Prior Imaging:none Jonh Hope NP [address] [place], [address], [place] - [facility] 03/07/2023 14:44:13 OBGyn Episode No OBEpisode recorded.
== END 2024-07-16 12:13 | disposition home or self-care (01) ==
PROVIDERS: PCP Internal Medicine; Visit Provider Internal Medicine
DX: N63.10 Unspecified lump in the right breast, unspecified quadrant (principal); R30.0 Dysuria; I10 Essential (primary) hypertension; Z13.9 Encounter for screening, unspecified

== ENCOUNTER 2024-07-16 10:57 | Outpatient (REF) | payer MEDICARE, SELFPAY | END 2024-07-16 10:58 | disposition home or self-care (01) | LOC: HO.LAB 10:57 | PROVIDERS: PCP Internal Medicine; Visit Provider Internal Medicine | DX: Z13.89 Encounter for screening for other disorder (principal) | CPT/HCPCS: 81003; 96127; 99212 ==

== ENCOUNTER 2024-07-16 11:00 | Outpatient (REF) | payer MEDICARE, SELFPAY | END 2024-07-16 11:01 | disposition home or self-care (01) | LOC: HO.LNP 11:00 | PROVIDERS: Visit Provider Internal Medicine | DX: Z13.89 Encounter for screening for other disorder (principal) | CPT/HCPCS: 87086 ==

== ENCOUNTER 2024-07-16 12:11 | Outpatient (REF) | payer MEDICARE, SELFPAY ==
[2024-07-16 14:14] LABS: Estimated Average Glucose 117 mg/dL; Hemoglobin A1C 168.8115 umol/L; Hemoglobin A1c % 5.7 % (<6.0); Total Hemoglobin (HGBA1C) 4403.4827 umol/L
[2024-07-16 14:47] LABS: Alanine Aminotransferase 21 U/L (0-31); Albumin Level 4.2 g/dL (3.5-5.0); Anion Gap 14 (12-20); Aspartate Amino Transferase 25 U/L (5-31); Bilirubin Total 1.1 mg/dL (0.0-1.0); Blood Urea Nitrogen 11 mg/dL (9-16); Calcium 9.8 mg/dL (8.4-10.2); Carbon Dioxide 26 mmol/L (22-29); Chloride 104 mmol/L (96-108); Estimated Glomerular Filt Rate > 60; Glucose Random 86 mg/dL (60-115); Potassium 4.1 mmol/L (3.3-5.1); Sodium 140 mmol/L (135-145); Total Protein 8.1 g/dL (6.5-8.0)
[2024-07-16 17:11] LABS: Alkaline Phosphatase 71 U/L (39-117)
== END 2024-07-16 12:12 | disposition home or self-care (01) ==
LOC: HO.HMGCLDS 12:11
PROVIDERS: PCP Internal Medicine; Visit Provider Internal Medicine
DX: R35.0 Frequency of micturition (principal); R30.0 Dysuria; N63.15 Unspecified lump in the right breast, overlapping quadrants; I10 Essential (primary) hypertension; E78.5 Hyperlipidemia, unspecified; Z13.1 Encounter for screening for diabetes mellitus
CPT/HCPCS: 36415; 80053; 81003; 83036; 87086; 87088; 87186; 96127; 99212

== ENCOUNTER 2024-09-14 10:42 | Outpatient (AMB) | payer MEDICARE, SELFPAY ==
[2024-09-14 10:45] VITALS: BP 122/74; PULSE 62; RESP 18; TEMP 36.8; O2SAT 96; BMI 33.8
--- NOTE | 2024-09-14 10:45 | MHC.PC.OV ---
Vital Signs 09/14/24 10:45 Height 5 ft 7 in Weight 216 lb BMI 33.8 BP 122/74 Blood Pressure Location Lt brachial Position Sitting Respiration 18 Pulse 62 Pulse Source Pulse Oximeter Temp 98.3 F Temp Source Oral Pulse Oximetry (%) 96 Oxygen Delivery Method Room Air Intake Visit Reasons: MEd review Intake Note: Pt is here today for a follow up visit. Allergies duloxetine [Cymbalta] Allergy (Unknown, Verified 09/14/24 10:45) dizziness simvastatin Allergy (Unknown, Verified 09/14/24 10:45) weakness Medication List - Last Reconciled 09/14/24 by Tia Bates MD estradiol 0.01%(0.1mg/gram) 1 g vaginal 2XW flu vacc [id number] 6mos up(PF) mL IM hydrochlorothiazide 12.5 mg PO DAILY latanoprost 0.005% 1 drp ophthalmic (eye) DAILY lidocaine 5% 0 patches topical lisinopril 20 mg PO BID lovastatin 20 mg PO DAILY metoprolol succinate ER 100 mg (2 x 50 mg) PO DAILY pantoprazole 40 mg PO QAM pregabalin 150 mg (2 x 75 mg) PO BID spironolactone 12.5 mg (1/2 x 25 mg) PO DAILY Tobacco use date assessed: 09/14/24 Fall risk assessment: No Falls in past year Last assessed Fall Risk: 09/14/24 Dental Screening Dental Screen Date: 09/14/24 Did you have a dental visit in the last 12 months?: Yes Did you have a dental problem in the last 6 months where you did not have access to dental care?: No Was dental information given to patient?: Patient has dentist HPI MEd review HPI Details Pt presents for f/u c/o R wrist 2 weeks, no injury and has OV with ortho. Pt c/o lower neck and upper thoracic region pain and muscle tightness left more than right and left shoulder pain worse when reaching or lifting her arm overhead. She denies any injury or falls. Patient denies any weakness numbness or tingling in the upper extremities. Hypertension is controlled on current medications [facility] Medical History Glaucoma Dysuria Lung nodule seen on imaging study Hip pain Lumbar radiculopathy, chronic Annual physical exam Multinodular goiter Anxiety GERD (gastroesophageal reflux disease) Cervical radiculopathy Hemangioma Hyperlipidemia HTN (hypertension) Hip pain, bilateral Lower back pain Surgical History H/O colonoscopy History of esophagogastroduodenoscopy (EGD) History of hysterectomy Family History Father Bone cancer Mother Stroke Social History Housing: House Alcohol intake: never Patient Tobacco Use Status: Never used Tobacco e-Cigarette/Vaping Use: Never Used Second Hand Smoke Exposure: No service: No Current occupational status: other Cognitive needs: No Hearing needs: No Vision needs: Yes Questionnaire PHQ-9 Over the last 2 weeks, how often have you been bothered by any of the following problems? 1. Little interest or pleasure in doing things: not at all 2. Feeling down, depressed, or hopeless: not at all 3. Trouble falling or staying asleep, or sleeping too much: not at all 4. Feeling tired or having little energy: not at all 5. Poor appetite or overeating: not at all 6. Feeling bad about yourself - or that you are a failure or have let yourself or your family down: not at all 7. Trouble concentrating on things, such as reading the newspaper or watching television: not at all 8. Moving or speaking so slowly that other people could have noticed. Or the opposite - being so fidgety or restless that you have been moving around a lot more than usual: not at all 9. Thoughts that you would be better off or of hurting yourself in some way: not at all Total score: 0 Depression Screening Interpretation: Negative Depression Screening Done: Yes 47406 - PHQ-9 Billing: Yes Source: Developed by Drs. Drake Hand, Adela Cordova, Branden Yanez and colleagues, with an educational emily from [employer]. Thrive Questionnaire Date Thrive assessed: 09/14/24 I am a: Patient What is your living situation today?: I have a steady place to live Within the past 12 months, did the food you bought not last and you didn't have the money to get more?: I choose not to answer this question Within the past 12 months, did you worry whether your food would run out before you got money to buy more?: I choose not to answer this question Do you have trouble paying for medicines?: I choose not to answer this question Do you have trouble getting transportation to medical appointments?: No Do you have trouble paying your heating and electricity bill?: No Do you have trouble taking care of your child, family member or friend?: No Do you have trouble with day-to-day activities such as bathing, preparing meals, shopping, managing finances, etc.?: No Are you currently unemployed and looking for a job?: No Are you interested in more education?: No Please select the resources that you would like help with: None Currently or been in a relationship where the following occur: I choose not to answer THRIVE Score: 0 AUDIT C Alcohol Use Questionnaire (AUDIT-C) 1. How often do you have a drink containing alcohol?: Never Total Score: 0 YESSI-7 AMB Questionnaire YESSI-7 Date YESSI - 7 assessed: 09/14/24 Feeling nervous, anxious, or on edge: 0 = Not at all Not being able to stop or control worryin = Not at all Worrying too much about different things: 0 = Not at all Trouble relaxin = Not at all Being so restless that it is hard to sit still: 0 = Not at all Becoming easily annoyed or irritable: 0 = Not at all Feeling afraid as if something awful might happen: 0 = Not at all Total YESSI-7 score (0-4 normal; 5-9 mild; 10-14 moderate; 15-21 severe): 0 Source: Developed by Drs. Drake Hand, Adela Cordova, Branden Yanez and colleagues, with an educational emily from [employer]. YESSI-7 Assessment Billing YESSI-7 Assessment Tool: YESSI-7 Assessment 46083 Review of Systems Const All systems reviewed & are unremarkable except as noted in HPI and below Eyes Reports no additional complaints ENT Reports no additional complaints Card Reports no additional complaints Resp Reports no additional complaints GI Reports no additional complaints Reports no additional complaints Physical exam (Primary Care) Vital Signs: Last Vital Signs Temp 98.3 F 09/14/24 10:45 Pulse 62 09/14/24 10:45 Resp 18 09/14/24 10:45 BP 122/74 09/14/24 10:45 Pulse Ox 96 09/14/24 10:45 Oxygen Delivery Method Room Air 09/14/24 10:45 BMI result Body Mass Index 33.8 Tobacco/Smoking Status: Tobacco use Status Tobacco use date assessed 09/14/24 09/14/24 10:46 Patient Tobacco Use Status Never used Tobacco 09/14/24 10:46 e-Cigarette/Vaping Use Never Used 09/14/24 10:46 PHQ-9: PHQ-9 Score PHQ-9: Total score 0 09/14/24 11:30 Depression Screening Interpretation: Negative Thrive Assessment: Date of Thrive Assessment Date Thrive assessed 09/14/24 09/14/24 10:46 Currently or been in a relationship where the following occur: I choose not to answer Const General: no acute distress HENMT Head: Yes normal to inspection Neck Neck: Yes no lymphadenopathy and Yes supple Resp Effort & Inspection: normal respiratory effort Auscultation: clear to auscultation bilaterally Cardio Rhythm: regular rhythm Heart sounds: S1 normal heart sound present and S2 normal heart sound present Extrem Other: There is decreased range of motion in cervical spine paraspinal tenderness lower cervical upper thoracic region left more than right, there is a slightly decreased range of motion in the left shoulder anterior and lateral aspect tenderness no soft tissue swelling erythema or warmth. There is reproducible tenderness over the base of left thumb with slight soft tissue swelling no erythema or warmth General: Yes no clubbing, cyanosis or edema Coding Level of Care Code Est Pt Level 3 (63501) Diagnoses Shoulder pain M25.519 Osteoarthritis of left thumb M18.12 HTN (hypertension) I10 Additional Codes YESSI-7 Assessment Billing - YESSI-7 Assessment Tool: YESSI-7 Assessment 76813 ([id number]) PHQ-9 - 74470 - PHQ-9 Billing: Yes ([id number]) Assessment & Plan Assessment & Plan (1) Shoulder pain: Code(s): M25.519 - Pain in unspecified shoulder Category: Medical Plan: Obtain x-ray of left shoulder refer and to physical therapy (2) Osteoarthritis of left thumb: Code(s): M18.12 - Unilateral primary osteoarthritis of first carpometacarpal joint, left hand Category: Medical Plan: Patient has an appointment with [facility] next week, she does not want to take NSAIDs because of affect on blood pressure (3) HTN (hypertension): Code(s): I10 - Essential (primary) hypertension Category: Medical Plan: Continue current medications Orders: Orders PT Evaluation and Treatment Today M25.519 - Pain in unspecified shoulder, M54.2 - Cervicalgia
--- OUTSIDE RECORDS SUMMARY | 2024-09-14 12:17 | XMS_ITS | Data Portability ---
Author Organization [facility], [address] Address [address] [place] [address] Care Team Providers Care Bilingual Recruiter Name Role Phone CYN AG Primary Care Provider Assessment No assessment recorded. Plan of Treatment Reminders Order Date Submit Date Provider Last Modified By Organization Details Last Modified Time Details Appointments None recorded. Lab None recorded. Referral orthopedic surgeon referral - Fracture middle phalanx of left hand ring finger. need further evaluation and treatment. [address] [facility], [address], [place], [address], 3 13:56:50 Procedures None recorded. Surgeries None recorded. Imaging XR, hand, 3 or more view 2022 023 [facility], [address] [place] [address], [address], 3 14:38:26 Medication Orders None recorded. Patient TargetsNo targets recorded. Patient Instructions Encounter Date Encounter Id Patient Instructions Last Modified By Organization Details Last Modified Time 03/07/2023 [id number] What are common finger injuries? Common finger [...] doctor might recommend that you take an gynz-fth-bvzilnn medicine for your pain. Ujjs-vvs-okzyqzc medicines include acetaminophen (sample brand name: Tylenol), [...] bandage (such as an STEFANIE wrap). ? Luis taping ? Luis taping involves taping your [...] view No observ ation record ed. [facility] [address] [place], [address], 03/07/2023 14:45:03 Result Notes None recorded. Procedures Surgical History Date Name Laterality Status Provider Name and Address Organization Details Recorded Time hysterectomy completed KRISTIAN RUBI - [facility] 03/07/2023 12:45:38 Imaging Results Imaging Date Name Status LastModified by Organiz ation Details LastModified Time 03/07/2023 XR, hand, 3 or more view completed [facility] [address] [place], [address], 03/07/2023 14:45:03 Procedure Notes None recorded. Medical [...] Address Organization Details Last Updated DateTime 3 47973.4 g 33.9 kg/m2 167.64 cm 98.5 [degF] 97 % 97 % 73 /min 16 /min 137 mm[Hg] 83 mm[Hg] KRISTIAN PORRAS [facility] 12:49:09 Social History Question Answer Notes LastModified by Organizat ion Details LastModified Time Tobacco Smoking Status Never [place] [email or web address] [facility] 03/07/2023 12:46:25 What Is Your Level Of Alcohol Consumption? None [email or web address] Information not available 03/07/2023 Do You Use Any Illicit Or Recreational Drugs? No [email or web address] Information not available 03/07/2023 Sex: Unknown Functional Status None recorded. Mental Status None recorded. Family History Nothing Reported. Medical History Condition Response Gout N Cancer, liver N Thyroid disorder N Hyperthyroidism N Rheumatoid arthritis N GI bleeding N Irritable bowel syndrome N COPD N Depression N Tinnitus, unspecified ear N Pneumonia N Cancer, uterus N Mental disorder, NOS N Headaches/Migraines N Insomia N Alzheimer's disease N Anxiety Disorder N Obesity N Arthritis N Cancer N Stroke N Alcohol abuse N Liver disease N Allergy Food/Medication N Cancer, bladder N Peripheral artery disease N Oxygen dependence [...] N Joint disorder, unspecified N Menopause N Back disorder N Drug dependence, unspecified N Hypothyroidism N Disorder kidney N Sickle Cell Anemia N Cancer, ovarian N Santana's Palsy N Disorder of eye N Cancer, prostate N Allergy Seasonal N Disorder of lymph system N Disorder of urinary system N Drug abuse N Radiculopathy, site unspecified N Myoneural disorder, unspecified N Nervous system disorder N ADHD N High Cholesterol N Post-herpetic neuralgia N Aneurysm, cerebral N Tinnitus, left ear N Prostate hypertrophy, benign N Disorder of skin/subcutaneous N Osteoarthritis N Disorder of ear N Ovarian cysts N Parkinson's disease N Low back pain N Carpal tunnel syndrome N Anemia N Disorder of muscle N Kidney stone N Bipolar affective disorder N Leukemia, unspecified N Diabetes N Disorder involving the immune mechanism N Endocrine disorder N Seizure N Hyperlipidemia N Eczema N Emphysema, unspecified N Lymphoma N Dementia N Diverticulitis N Lupus N Seizure disorder N Reflux/GERD N Sleep Apnea N Cancer, bone N Cardiac arrhythmia, unspecified N Disorder of thyroid N Disorder of bone N Heart Disease N Disorder of brain N Liver Disorder N Aneurysm, aortic N Hypertension Y Osteoporosis N Disease of digestive system, unspecified N Gastroesophageal reflux (GERD) Y Gynecological HistoryNo gynecological history recorded. Obstetrics History GPAL:G 0 P 0 0 0 0 Past Encounters Encounter ID Performer Location Encounter Start Date Encounter Closed Date Diagnosis/Indication Diagnosis SNOMED-CT Code Diagnosis ICD10 Code Diagnosis Note [id number] [address] [place] [address] 01/31/2016 16:44:31 01/31/2016 17:49:16 [id number] [address] [place] [address] 03/30/2015 10:58:39 03/30/2015 11:47:56 [id number] Jonh Hope NP [address] [place] [address] 03/07/2023 11:59:02 03/07/2023 13:56:50 Contusion of left ring finger [id number] 3076279 S60.042A Fracture o f middle phalanx of finger [id number] S62.625A Health Concerns Section Related Observation LastModified by Organization Detai ls LastModified Time None Recorded Concern Status LastModified by Organization Details LastModified Time None Recorded Advance Directives Directive None Recorded Payers Encounter Date Sequence Insurance Name Policy Number Policy Moore Covered Member ID Moore Member ID Guarantor Name 03/30/2015 1 [facility] [id number] Abe Gurrola [id number] Louise Gurrola 01/31/2016 1 [facility] [id number] Abe Gurrola [id number] Louise Gurrola 03/07/2023 1 [facility] [id number] Abe Gurrola [id number] Louise Gurrola Notes Date Note Type Note [...] Hope NP [address] [place], [address], [place] - [facility] 03/07/2023 14:44:13 OBGyn Episode No OBEpisode recorded.
--- OUTSIDE RECORDS SUMMARY | 2024-09-14 12:17 | XMS_ITS | Data Portability ---
Author Organization [facility] Pain Managem ent, PAIN OFFICE Address [address] [facility],[address] [place] [address] Care Team Providers Care Intern Retail Name Role Phone CYN AG Primary Care Provider [phone] JENIFER MCDONALD Referring Provider Assessment Encounter Date Assessment Date Assessment LastModified [...] were palpated with reproduction of her pain in? ? ?the left trapezius muscle and left paraspinal muscle in? ? ?the cervical spine. Trial of trigger point injections [...] Procedures None recorded. Surgeries None recorded. Imaging MRI, lumbar spine, w/o contrast - Approval in place - [id number]- Please schedule with patient expires 01/15/20232022 023 [facility] ([facility]), [address] [place], [address], 17:45:01 NM, bone scan, whole body 2018 019 [facility], [address] [place], [address], 10:19:33 Medication Orders None recorded. Patient TargetsNo targets recorded. Patient Instructions Encounter Date Encounter Id Patient Instructions Last Modified By Organization Details Last Modified Time 06/22/2018 [id number] She was advised against bed rest lasting longer than four days and to continue activities as tolerated. [email or web address] Not available 07/07/2018 09:17:58 08/02/2018 [id number] She was advised against bed rest lasting longer than four days and to continue activities as tolerated. [email or web address] Not available 08/07/2018 09:06:36 07/19/2022 [id number] She was advised against bed rest lasting longer than four days and to continue activities as tolerated. [email or web address] Not available 07/19/2022 14:06:07 09/28/2022 [id number] She was advised against bed rest lasting longer than four days and to continue activities as tolerated. [email or web address] Not available 09/28/2022 15:23:30 12/31/2022 [id number] She was advised against bed rest lasting longer than four days and to continue activities as tolerated. [email or web address] Not available 01/24/2023 10:57:04 Reason for Referral None Reported. Results Created Date Observation Date Name Description Value Unit Range Abnormal Flag Note LastModifiedBy Organization Detail LastModifiedTime 08/02/19 19 07/25/2018 NM, bone scan, whole body No observ ation record ed. [facility] (Imaging) [address], [place], [address], 08/03/2018 12:49:22 07/22/19 23 07/21/2022 MRI, lumba r spine , w/o contr ast [facility] Access ion Number : [id number] Name: Mariluz oglesby, Louise Medica l Record Number : [id number] Date of : 1960 Date of Exam: 2022 Referr ing Physic any: Christophe Peterson Pain Man[facility] ment [address] [place] [address] Exam: MR Lumbar Spine (C-) CPT 22933 Room Descri ption: [facility] Norberto 1.5 Mob MRI of the lumbar [...] onical ly Signed By: Tyron Pickard MD [facility] ([facility]) [address] [place], [address], 07/26/2022 13:21:52 Result Notes None recorded. Problems Name Problem SNOMED Code Status Onset Date Resolution Date Notes Provider Name and Address Organization Details Recorded Time Cervical radiculopa thy 81599209 Active Christophe oglesby MD [address] [facility] , [address], [place], [address], [place] [facility] 8 09:54:01 Spinal stenosis in cervical region 84749321 Active Christophe oglesby MD [address] , [address], [facility] [place], [address], [place] [facility] 8 09:54:14 Degenerati on of cervical interverte bral disc 31162070 Justin oglebsy MD [address] , [address], [facility] [place], [address], [place] [facility] 8 09:54:27 Lesion of thoracic spine 020222880 Active Hemangioma S/P surgery Christophe oglesby MD [address] , [address], [place], [address], [place] [facility] 8 09:55:41 Neoplasm of nervous system 833859775 Active Christophe oglesby MD [address] [facility] , [address], [place], [address], [place] [facility] 8 14:37:45 Muscle pain 69648898 Active Christophe oglesby MD [address] , [address], [place], [address], [place] [facility] 8 10:34:37 Problem Notes None recorded. Procedures Surgical History Date Name Laterality Status Provider Name and Address Organization Details Recorded Time 09/29/19 Lumbar Epidural steroid injection under fluoroscopic guidance completed Christophe Martinez MD [address] , [address], [place], [address], [place] [facility] 09/28/2022 15:22:56 03/09/20 18 Trigger Point Injections under ultrasound guidance completed Christophe Martinez MD [address] , [address], [place], [address], [place] [facility] 03/11/2018 10:36:13 Other completed Marcelina Castillo [place] [facility] 08/04/2017 14:03:45 Other completed Marcelina Castillo [place] [facility] 08/04/2017 14:06:10 Imaging Results Imaging Date Name Status LastModified by Organiz ation Details LastModified Time 07/25/2018 NM, bone scan, whole body completed [facility] (Imaging) [address] [place], [address], 08/03/2018 12:49:22 07/21/2022 MRI, lumbar spine, w/o contrast completed [email or web address] [facility] ([facility] [address] [place], [address], 07/26/2022 13:21:52 Procedure Notes None recorded. Medical Equipment None Reported. Allergies Allergen ID Allergen Name Allergen Category Reaction Reaction Severity Criticality Documentation Date Start Date Code Code System Note Provider Name and Address Organization Details Recorded Time 26032 simvastat in medicatio n myalgias (muscle pain) Not available Not available 08/04/2017 27029 RxNorm ROSANNE [facility] 8 14:00:14 [...] % 125 mm[Hg] 72 mm[Hg] Marcelina Castillo [place] [facility] 9 13:12:25 Date Recorded Body height Heart rate Oxygen saturation Oxygen saturation in Arterial blood by Pulse oximetry Systolic blood pressure Diastolic blood pressure Provider Name and Address Organization Details Last Updated DateTime 9 170.18 cm 60 /min 97 % 97 % 167 mm[Hg] 83 mm[Hg] Marcelina Castillo [place] [facility] 9 10:10:41 Date Recorded Heart rate Oxygen saturation Oxygen saturation in Arterial blood by Pulse oximetry Systolic blood pressure Diastolic blood pressure Provider Name and Address Organization Details Last Updated DateTime 3 72 /min 97 % 97 % 121 mm[Hg] 65 mm[Hg] Kathy Andrade [place] [facility] 3 13:13:31 Date Recorded Heart rate Oxygen saturation Oxygen saturation in Arterial blood by Pulse oximetry Systolic blood pressure Diastolic blood pressure Provider Name and Address Organization Details Last Updated DateTime 3 82 /min 97 % 97 % 140 mm[Hg] 65 mm[Hg] Kay Ayala [place] [facility] 3 15:01:59 Date Recorded Body height Body mass index (BMI) Body weight Heart rate Oxygen saturation Oxygen saturation in Arterial blood by Pulse oximetry Pain severity - 0-10 verbal numeric rating [Score] - Reported Systolic blood pressure Diastolic blood pressure Provider Name and Address Organization Details Last Updated DateTime 3 170.18 cm 32.9 kg/m2 96500.4 g 62 /min 98 % 98 % 6 131 mm[Hg] 70 mm[Hg] Christophe oglesby MD [address] [facility] , [address], [place], [address], [facility] Pain Management 3 09:51:24 Social History Question Answer Notes LastModified by Organizat ion Details LastModified Time Tobacco Smoking Status Never Smoker Marcelina shaw, [facility] Pain Management 08/04/2017 14:02:15 What Is Your Level Of Alcohol Consumption? None Information not available 08/04/2017 Are You Currently Employed? Yes [employer] Information not available 08/04/2017 Which Illicit Or Recreational Drugs Have You Used? 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 Information not available 08/04/2017 Live Alone Or [...] SNOMED-CT Code Diagnosis ICD10 Code Diagnosis Note [id number] Christophe Martinez MD PAIN OFFICE [address] [facility] [place] [address] 08/04/2017 13:21:04 08/11/2017 14:43:14 Cervical radiculopathy 26287469 M54.12 Spinal kaycee nosis in cervical region 93821088 M48.02 Degenerati on of cervical intervertebral disc 45278948 M50.30 Lesion of thoracic spine 256873410 M99.9 36928 Christophe Martinez MD PAIN OFFICE [address] [facility] [place] [address] 09/12/2017 08:33:15 09/15/2017 12:04:47 Cervical radiculopathy 40731247 M54.12 Spinal kaycee nosis in cervical region 24739050 M48.02 Degenerati on of cervical intervertebral disc 76490711 M50.30 Lesion of thoracic spine 296150223 M99.9 31752 Christophe Martinez MD PAIN OFFICE [address] [facility] [place] [address] 11/14/2017 09:28:53 11/14/2017 11:35:43 Cervical radiculopathy 07807649 M54.12 Spinal kaycee nosis in cervical region 59355873 M48.02 Degenerati on of cervical intervertebral disc 37194106 M50.30 Lesion of thoracic spine 902407760 M99.9 42035 Christophe Martinez MD PAIN OFFICE [address] [facility] [place] [address] 03/09/2018 08:27:21 03/11/2018 10:39:59 Cervical radiculopathy 90532164 M54.12 Spinal kaycee nosis in cervical region 06398721 M48.02 Degenerati on of cervical intervertebral disc 33804781 M50.30 Lesion of thoracic spine 264194525 M99.9 07940 Christophe Martinez MD PAIN OFFICE [address] [facility] [place] [address] 06/22/2018 13:03:36 07/07/2018 09:54:11 Cervical radiculopathy 86475254 M54.12 Spinal kaycee nosis in cervical region 45340061 M48.02 Degenerati on of cervical intervertebral disc 49622588 M50.30 Lesion of thoracic spine 034720547 M99.9 68309 Christophe Martinez MD PAIN OFFICE [address] [place] [address] 08/02/2018 09:58:36 08/07/2018 09:08:45 Cervical radiculopathy 67166835 M54.12 Spinal kaycee nosis in cervical region 66342464 M48.02 Degenerati on of cervical intervertebral disc 60772738 M50.30 Lesion of thoracic spine 308330860 M99.9 45652 Christophe Martinez MD PAIN OFFICE [address] [place] [address] 07/19/2022 12:58:47 07/19/2022 15:23:48 Lumbar radiculopathy 884804134 M54.16 Degenerati on of lumbar intervertebral disc 31653497 M51.36 27913 Christophe Martinez MD PAIN OFFICE [address] [place] [address] 09/28/2022 14:57:29 09/28/2022 15:27:36 Lumbar radiculopathy 720869818 M54.16 Degenerati on of lumbar intervertebral disc 91777329 M51.36 89166 Christophe Martinez MD PAIN OFFICE [address] [place] [address] 12/31/2022 09:43:21 01/24/2023 10:59:58 Cervical radiculopathy 16762120 M54.12 Muscle pain 89986409 M79 .18 Lesion of thoracic spine 116555284 M99.9 Health Concerns Section Related Observation LastModified by Organization Detai ls LastModified Time None Recorded Concern Status LastModified by Organization Details LastModified Time None Recorded Advance Directives Directive None Recorded Payers Encounter Date Sequence Insurance Name Policy Number Policy Moore Covered Member ID Moore Member ID Guarantor Name 06/22/2018 1 [id number] ([id number]) [id number] Louise Taman [id number] Louise Gurrola 08/02/2018 1 [facility] [id number] Louise Gurrola [id number] Louise Gurrola 07/19/2022 1 [facility] [id number] Louise Gurrola [id number] Louise Gurrola 09/28/2022 1 [facility] [id number] Louise Gurrola [id number] 2 Louise Gurrola 12/31/2022 1 [facility] [id number] Louise Gurrola [id number] Louise Gurrola Notes Date Note Type [...] left pleural effusion. Christophe Martinez MD [address] , [address], [place], [address], [facility] 07/10/2018 10:13:41 08/02/2018 text/html She [...] would become high. Christophe Martinez MD [address] [facility] , [address], [place], [address], [facility] 08/07/2018 13:51:35 07/19/2022 text/html Louise Gurrola? ? ?is a 61 year old woman with complaints of low back pain radiating into left lower extremity. 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 Christophe Martinez MD [address] [facility] , [address], [place], [address], [facility] - Pain Management 07/19/2022 15:35:42 09/28/2022 text/html She is here for a trial of lumbar epidural steroid injection under fluoroscopic guidance. Christophe Martinez MD [address] [facility] , [address], [place], [address], [facility] - Pain Management 09/28/2022 15:49:50 12/31/2022 text/html She [...] no history of bladder or bowel incontinence. Christophe Martinez MD [address] [facility] , [address], [place], [address], [place] [facility] 01/24/2023 11:06:53 OBGyn Episode No OBEpisode recorded.
--- OUTSIDE RECORDS SUMMARY | 2024-09-14 12:18 | XMS_ITS | Patient Health Record ---
Author Organization [facility] Address [address] [facility] [address] [place] [address] Care Team Providers Care 3D Animator Name Role Phone Tia Bates MD Primary Care Provider Unavaila Geraldine Tinoco Unavailable [phone] Reason For Referral No Information Medications Medication SIG (Take, Route, Frequency, Duration) Notes Start Date End Date Status Metoprolol Tartrate 100MG 1 ORAL twice daily for -3 [facility] 07/26/2011 Active Spironolactone 1 ORAL daily for -3 [facility] 10/15/2013 Active Aygestin 5 mg 1 ORAL daily for -3 [facility] 08/03/2012 Active Lisinopril 40MG 1 ORAL daily for -3 [facility] 07/26/2011 Active Mirena 20 MCG/24HR Intrauterine Active Aygestin 5 MG 1 tablet Orally TWIC E A DAY for 30 days 09/16/2014 Active Problems Problem Type SNOMED Code ICD Code Onset Dates Problem Status W/U Status Risk Notes Problem Goiter (6343696) Goiter, unspecified (240.9) Active confirmed Major Problem Essential hypertension (15426113) Unspecified essential hypertension (401.9) Active confirmed Major Problem Postmenopausal bleeding (46722462) Postmenopausal bleeding (627.1) Active confirmed Diag Problem Menopausal symptom (45524460) Symptomatic menopausal or female climacteric states (627.2) Active confirmed Major Problem Degeneration of intervertebral disc (00175626) Degeneration of intervertebral disc, site unspecified (722.6) Active confirmed Major Plan Of Treatment No Information Insurance Providers Payer Name Payer Address Payer Phone Subscriber Number Group Number Insured Name Patient Relationship to Insured Coverage Start Date Coverage End Date [employer] [address] [place] [address] [id number] ISIDRO TINOCO Spouse - patient is the spouse of the insured Medical (General) History Medical History History ICD Code Postmenopausal bleeding 627.1 Unspecified essential hypertension 401.9 Goiter, unspecified 240.9 Degeneration of intervertebral disc, sit e unspecified 722.6 Surgical History Surgery Date(Month/Year) Thyroid Biopsy Colonoscopy Hospitalization History Reason Date(Month/Year) 2 Vaginal Deliveries
== END 2024-09-14 13:57 | disposition home or self-care (01) ==
LOC: HO.HMCC 10:43
PROVIDERS: PCP Internal Medicine; Visit Provider Internal Medicine
DX: M25.519 Pain in unspecified shoulder (principal); M18.12 Unilateral primary osteoarthritis of first carpometacarpal joint, left hand; I10 Essential (primary) hypertension

== ENCOUNTER → 2024-09-14 10:42 | Outpatient (BNVA) | payer MEDICARE, SELFPAY | PROVIDERS: PCP Internal Medicine; Visit Provider Internal Medicine | DX: M18.12 Unilateral primary osteoarthritis of first carpometacarpal joint, left hand (principal); I10 Essential (primary) hypertension | CPT/HCPCS: 96127; 99212 ==

== ENCOUNTER 2024-10-03 10:01 | Outpatient (REF) | payer MEDICARE, SELFPAY ==
--- OUTSIDE RECORDS SUMMARY | 2024-10-03 11:29 | XMS_ITS | Continuity of Care Document ---
Author Organization [place] - [facility], [facility] 3rd floor Address [address] [place] [address] Care Team Providers Care Specimen Collector Name Role Phone CYN AG Primary Care Provider Assessment No assessment recorded. Plan of Treatment Reminders Order Date Submit Date Provider Last Modified By Organization Details Last Modified Time Details Appointments NEW PATIENT 15 2024 10:30A M Eduard Pearson PA-C Not available Not available Not available Lab None recorded . Referral None recorded . Procedures None recorded . Surgeries None recorded . Imaging XR, finger(s ), 2 or more view - RM 2 2V TMJ LEFT 2024 025 [email or web address] [facility] Office, [address] [facility], [place], [address], 10/01/2024 15:01:06 Medication Orders None recorded . Patient TargetsNo targets recorded. Patient InstructionsNo instructions recorded. Reason for Referral None Reported. Results Created Date Observation Date Name Description Value Unit Range Abnormal Flag Note LastModifiedBy Organization Detail LastModifiedTime 10/02/19 25 10/01/2024 XR, finge r(s), 2 or more view http:/ [email or web address] ?Encry pted=s hAaTro YD8dLq bEUv6g %2BXZw aYqtaq 0bqfl% 2Fg9IQ a4ajBk vP9nXo QUaueC m3YtLR FvZlgJ JJ8mAn HZtai3 0p5507 AC0KqY 3SDWaG gKiQtr MwF INTERFACE [facility] [address], [place], [address], 10/01/2024 13:50:07 10/02/19 25 10/01/2024 XR, finge r(s), 2 or more view http:/ [email or web address] ?Encry pted=s hAaTro YD8dLq bEUv6g %2BXZw aYqtaq 0bqfl% 2Fg9IQ a4ajBk vP9nXo QUaueC m3YtLR FvZlgJ JJ8mAn HZtai3 4g6305 AC0KqY 3SDWaG gKiQtr MwF INTERFACE [facility] Office [address], [place], [address], 10/01/2024 13:50:08 Result Notes None recorded. Procedures Surgical History Date Name Laterality Status Provider Name and Address Organization Details Recorded Time 5 JZCelestone Wrist Tendon Inj completed Eduard Pearson PA-C [address] [facility] [address], [place], [address], [facility] 10/01/2024 14:10:30 Imaging Results None recorded. Procedure Notes None recorded. Medical Equipment None Reported. Allergies Allergen ID Allergen Name Allergen Category Reaction Reaction Severity Criticality Documentation Date Start Date Code Code System Note Provider Name and Address Organization Details Recorded Time 656012 simvastat in medicatio n Not available Not available Not available 10/01/2024 18857 RxNorm SHELL BURGESS [facility] 5 13:41:21 Medications Name Sig Start Date Stop Date Status Note LastModified by Organization Details LastModified Time latanoprost 0.005 % eye drops INSTILL 1 DORP INTO BOTH EYES DAILY active Not Available Not Available No t Available metoprolol succinate ER 50 mg tablet,extend ed release 24 hr TAKE 2 TABLETS DAILY active Not Available Not Available No t Available lisinopril 20 mg tablet TAKE 1 TABLET TWICE A DAY active Not Available Not Available No t Available spironolacton e 25 mg tablet TAKE 1/2 TABLET DAILY active Not Available Not Available No t Available pantoprazole 40 mg tablet,delaye d release TAKE 1 TABLET EVERY MORNING active Not Available Not Available No t Available hydrochloroth iazide 12.5 mg capsule TAKE 1 CAPSULE DAILY active Not Available Not Available No t Available lovastatin 20 mg tablet TAKE 1 TABLET BY MOUTH EVERY DAY active Not Available Not Available No t Available estradiol 0.01% (0.1 mg/gram) vaginal cream USE 1 GRAM VAGINALLY 2 TIMES A WEEK active Not Available Not Available No t Available nitrofurantoi n monohydrate/m acrocrystals 100 mg capsule TAKE 1 CAPSULE BY MOUTH EVERY 12 HOURS FOR 7 DAYS WITH FOOD active Not Available Not Available No t Available pregabalin 75 mg capsule TAKE 2 CAPSULES TWICE DAILY active Not Available Not Available No t Available Clenpiq 10 mg-3.5 gram-12 gram/175 mL oral solution TAKE 175 ML BY MOUTH TWICE A DAY DIRECTED active Not Available Not Available No t Available Vitals Date Recorded Body height Body mass index (BMI) Body weight Provider Name and Address Organization Details Last Updated DateTime 10/01/2024 167.64 cm 33.9 kg/m2 01399.4 g SHELL BURGESS [place] [facility] [place] [facility] 10/01/2024 13:41:05 Social History None recorded. Functional Status None recorded. Mental Status None recorded. Family History Nothing Reported. Medical History No medical history recorded. Gynecological HistoryNo gynecological history recorded. Obstetrics History GPAL:G 0 P 0 0 0 0 Past Encounters Encounter ID Performer Location Encounter Start Date Encounter Closed Date Diagnosis/Indication Diagnosis SNOMED-CT Code Diagnosis ICD10 Code Diagnosis Note [id number] [facility] 3rd floor [address] [place] [address] 10/01/2024 13:03:22 10/01/2024 14:10:47 Pain of left hand 3669876735 42678 M79.642 Health Concerns Section Related Observation LastModified by Organization Detai ls LastModified Time None Recorded Concern Status LastModified by Organization Details LastModified Time None Recorded Payers Encounter Date Sequence Insurance Name Policy Number Policy Moore Covered Member ID Moore Member ID Guarantor Name 10/01/2024 1 [place] (MEDICARE REPLACEMENT PPO) [id number] Louise Gurrola [id number] Louise Gurrola Notes Date Note Type Note Provider Name and Address Organization Details Recorded Time 10/01/2024 text/html I am seeing the patient today under the supervision of dr Regalado who was available but who did not see the patient. DX: Left Dequervains tenosynovitisLeft basilar joint arthrosis HPI:63-year-old female here for orthopedic consultation. She is complaining of dorsal radial left wrist pain. 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 Has pain with rest. Unable take anti-inflammatories because of high blood pressure, using a splint which helps Past family, medical, social history and review of systems has been reviewed, updated and is located in the patient? s chart. Examination: Alert and oriented ? ? 3 . No acute distress. Nonantalgic gait. Left Wrist reveals swelling over the first dorsal compartment. Tender over the first dorsal compartment. Positive Sarah's test. Negative Tinel sign over the distal radial sensory nerve. No tenderness over the TMJ joint. No tenderness over the A1 anthony region of the thumb. Neurovascularly intact. right wrist shows no warmth, erythema, swelling, or effusion. Full ROM, 5/5 strength all muscle groups and no evidence of instability. X-rays ordered, obtained and reviewed at [facility] views of TMJ reveals mild Narrowing Impression/Plan: Findings on the situation discussed with the patient. Treatment options were discussed. Recommend a corticosteroid injection. Under aseptic technique 6 mg of Celestone and 1 cc 0.5% marcaine were injected into the Leftfirst dorsal compartment region. Patient tolerated the procedure well. Postinjection questions were discussed. Provided with a handout. The patient will follow up in 6 weeks. No improvement. Eduard Pearson PA-C [address], [place], [address], [facility] [place] [facility] 10/01/2024 14:10:46 OBGyn Episode No OBEpisode recorded.
--- OUTSIDE RECORDS SUMMARY | 2024-10-03 11:29 | XMS_ITS | Data Portability ---
Author Organization ELICIA Swanson s, [address] Address [address] [place] [address] Care Team Providers Care Collections Rep Name Role Phone CYN AG Primary Care Provider Assessment No assessment recorded. Plan of Treatment Reminders Order Date Submit Date Provider Last Modified By Organization Details Last Modified Time Details Appointments None recorded. Lab None recorded. Referral orthopedic surgeon referral - Fracture middle phalanx of left hand ring finger. need further evaluation and treatment. [address] [facility], [address], [place], [address], 3 13:56:50 Procedures None recorded. Surgeries None recorded. Imaging XR, hand, 3 or more view 2022 023 [facility], [address] [place] [address], [address], 3 14:38:26 Medication Orders None recorded. Patient TargetsNo targets recorded. Patient Instructions Encounter Date Encounter Id Patient Instructions Last Modified By Organization Details Last Modified Time 03/07/2023 [id number] What are common finger injuries? Common finger [...] doctor might recommend that you take an urxi-zhu-rocsbll medicine for your pain. Idgk-gnc-qzmtgxc medicines include acetaminophen (sample brand name: Tylenol), [...] more view No observ ation record ed. [facility] [address] [place], [address], 03/07/2023 14:45:03 Result Notes None recorded. Procedures Surgical History Date Name Laterality Status Provider Name and Address Organization Details Recorded Time hysterectomy completed KRISTIAN RUBI - [facility] 03/07/2023 12:45:38 Imaging Results Imaging Date Name Status LastModified by Organiz ation Details LastModified Time 03/07/2023 XR, hand, 3 or more view completed [facility] [address] [place], [address], 03/07/2023 14:45:03 Procedure Notes None recorded. Medical [...] Address Organization Details Last Updated DateTime 3 94080.4 g 33.9 kg/m2 167.64 cm 98.5 [degF] 97 % 97 % 73 /min 16 /min 137 mm[Hg] 83 mm[Hg] KRISTIAN PORRAS PA [facility] 12:49:09 Social History Question Answer Notes LastModified by Organizat ion Details LastModified Time Tobacco Smoking Status Never Smoker KRISTIAN PORRAS null PA [facility] 03/07/2023 12:46:25 What Is Your Level Of Alcohol Consumption? None [email or web address] Information not available 03/07/2023 Do You Use Any Illicit Or Recreational Drugs? No [email or web address] Information not available 03/07/2023 Sex: Unknown Functional [...] SNOMED-CT Code Diagnosis ICD10 Code Diagnosis Note [id number] [address] [place] [address] 01/31/2016 16:44:31 01/31/2016 17:49:16 [id number] [address] [place] [address] 03/30/2015 10:58:39 03/30/2015 11:47:56 [id number] Jonh Hope NP [address] [place] [address] 03/07/2023 11:59:02 03/07/2023 13:56:50 Contusion of left ring finger 4362239698 7833097 S60.042A Fracture o f middle phalanx of finger 321774309 S62.625A Health Concerns Section Related Observation LastModified by Organization Detai ls LastModified Time None Recorded Concern Status LastModified by Organization Details LastModified Time None Recorded Advance Directives Directive None Recorded Payers Encounter Date Sequence Insurance Name Policy Number Policy Moore Covered Member ID Moore Member ID Guarantor Name 03/30/2015 1 [facility] [id number] Abe Gurrola [id number] Louise Gurrola 01/31/2016 1 [facility] [id number] Abe Gurrola [id number] Louise Gurrola 03/07/2023 1 [facility] [id number] Abe Gurrola [id number] Louise Gurrola Notes Date Note Type [...] Hope NP [address] [place], [address], [place] - [facility] 03/07/2023 14:44:13 OBGyn Episode No OBEpisode recorded.
--- OUTSIDE RECORDS SUMMARY | 2024-10-03 11:30 | XMS_ITS | Data Portability ---
Author Organization [facility], PAIN OFFICE Address [address],[address] [place] [address] Care Team Providers Care Chicken Dresser Name Role Phone CYN AG Primary Care Provider JENIFER MCDONALD Referring Provider [phone] Assessment Encounter Date Assessment Date Assessment LastModified [...] w/o contrast - Approval in place - [id number]- Please schedule with patient expires 01/15/20232022 023 [facility] ([facility]), [address] [place], [address], 17:45:01 NM, bone scan, whole body 2018 019 [facility], [address] [place], [address], 9 10:19:33 Medication Orders None recorded. Patient TargetsNo targets recorded. Patient Instructions Encounter Date Encounter Id Patient Instructions Last Modified By Organization Details Last Modified Time 06/22/2018 [id number] She was advised against bed rest lasting longer than four days and to continue activities as tolerated. [email or web address] Not available 07/07/2018 09:17:58 08/02/2018 [id number] She was advised against bed rest lasting longer than four days and to continue activities as tolerated. [email or web address] Not available 08/07/2018 09:06:36 07/19/2022 [id number] She was advised against bed rest lasting longer than four days and to continue activities as tolerated. [email or web address] Not available 07/19/2022 14:06:07 09/28/2022 [id number] She was advised against bed rest lasting longer than four days and to continue activities as tolerated. [email or web address] Not available 09/28/2022 15:23:30 12/31/2022 [id number] She was advised against bed rest lasting longer than four days and to continue activities as tolerated. [email or web address] Not available 01/24/2023 10:57:04 Reason for Referral None Reported. Results Created Date Observation Date Name Description Value Unit Range Abnormal Flag Note LastModifiedBy Organization Detail LastModifiedTime 08/02/19 19 07/25/2018 NM, bone scan, whole body No observ ation record ed. [facility] (Imaging) [address] [facility], [place], [address], 08/03/2018 12:49:22 07/22/1907/21/2022 MRI, lumba r spine , w/o contr ast [facility] Access ion Number : [id number] t Name: Mariluz oglesby, Louise [facility] Record Number : [id number] Date of : 1960 Date of Exam: 2022 Referr ing Physic any: Christ[facility] [address] [place] [address] Exam: MR Lumbar Spine (C-) CPT 74720 Room Descri ption: [facility] [...] onical ly Signed By: Tyron Pickard MD [facility] ([facility]) [address] [place], [address], 07/26/2022 13:21:52 Result Notes None recorded. Problems Name Problem SNOMED Code Status Onset Date Resolution Date Notes Provider Name and Address Organization Details Recorded Time Cervical radiculopa thy 78706383 Active Christophe oglesby MD [address] [facility] , [address], [place], [address], [place] [facility] 8 09:54:01 Spinal stenosis in cervical region 61283027 Active Christophe oglesby MD [address] , [address], [place], [address], [place] [facility] 8 09:54:14 Degenerati on of cervical interverte bral disc 80139534 Active Christophe oglesby MD [address] , [address], [place], [address], [place] [facility] 8 09:54:27 Lesion of thoracic spine 628270612 Active Hemangioma S/P surgery Christophe oglesby MD [address] , [address], [place], [address], [place] [facility] 8 09:55:41 Neoplasm of nervous system 179190616 Active Christophe oglesby MD [address] , [address], [place], [address], [place] [facility] 8 14:37:45 Muscle pain 08475872 Active Christophe oglesby MD [address] [facility] , [address], [place], [address], [place] [facility] 8 10:34:37 Problem Notes None recorded. Procedures Surgical History Date Name Laterality Status Provider Name and Address Organization Details Recorded Time 09/29/19 Lumbar Epidural steroid injection under fluoroscopic guidance completed Christophe Martinez MD [address] [facility] , [address], [place], [address], [place] [facility] 09/28/2022 15:22:56 03/09/20 18 Trigger Point Injections under ultrasound guidance completed Chrsitophe Martinez MD [address] [facility] , [address], [place], [address], [place] [facility] 03/11/2018 10:36:13 Other completed Marcelina Castillo [place] [facility] 08/04/2017 14:03:45 Other completed Marcelina Castillo [place] [facility] 08/04/2017 14:06:10 Imaging Results Imaging Date Name Status LastModified by Organiz ation Details LastModified Time 07/25/2018 NM, bone scan, whole body completed [facility] (Imaging) [address] [place], [address], 08/03/2018 12:49:22 07/21/2022 MRI, lumbar spine, w/o contrast [facility] [address] [place], [address], 07/26/2022 13:21:52 Procedure Notes None recorded. Medical Equipment None Reported. Allergies Allergen ID Allergen Name Allergen Category Reaction Reaction Severity Criticality Documentation Date Start Date Code Code System Note Provider Name and Address Organization Details Recorded Time 82832 simvastat in medicatio n myalgias (muscle pain) Not available Not available 08/04/2017 98377 RxNorm [facility] 8 14:00:14 [...] % 125 mm[Hg] 72 mm[Hg] Marcelina Castillo [place] - [facility] 9 13:12:25 Date Recorded Body height Heart rate Oxygen saturation Oxygen saturation in Arterial blood by Pulse oximetry Systolic blood pressure Diastolic blood pressure Provider Name and Address Organization Details Last Updated DateTime 9 170.18 cm 60 /min 97 % 97 % 167 mm[Hg] 83 mm[Hg] Marcelina Castillo [place] - [facility] 9 10:10:41 Date Recorded Heart rate Oxygen saturation Oxygen saturation in Arterial blood by Pulse oximetry Systolic blood pressure Diastolic blood pressure Provider Name and Address Organization Details Last Updated DateTime 3 72 /min 97 % 97 % 121 mm[Hg] 65 mm[Hg] Kathy Andrade [place] - [facility] 3 13:13:31 Date Recorded Heart rate Oxygen saturation Oxygen saturation in Arterial blood by Pulse oximetry Systolic blood pressure Diastolic blood pressure Provider Name and Address Organization Details Last Updated DateTime 3 82 /min 97 % 97 % 140 mm[Hg] 65 mm[Hg] Kay Ayala [place] - [facility] 3 15:01:59 Date Recorded Body height Body mass index (BMI) Body weight Heart rate Oxygen saturation Oxygen saturation in Arterial blood by Pulse oximetry Pain severity - 0-10 verbal numeric rating [Score] - Reported Systolic blood pressure Diastolic blood pressure Provider Name and Address Organization Details Last Updated DateTime 3 170.18 cm 32.9 kg/m2 71991.4 g 62 /min 98 % 98 % 6 131 mm[Hg] 70 mm[Hg] Christophe oglesby MD [address] , [address], [facility] [place], [address], [facility] 3 09:51:24 Social History Question Answer Notes LastModified by Organizat ion Details LastModified Time Tobacco Smoking Status Never Smoker Marcelina Monsalvesuni shaw, [facility] 08/04/2017 14:02:15 What Is Your Level Of Alcohol Consumption? None Information not available 08/04/2017 Are You Currently Employed? Yes [employer] Information not available 08/04/2017 Which Illicit Or Recreational Drugs Have You Used? 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 Information not available 08/04/2017 Live Alone Or [...] SNOMED-CT Code Diagnosis ICD10 Code Diagnosis Note 57115 Christophe Martinez MD PAIN OFFICE [address] [facility] [place] [address] 08/04/2017 13:21:04 08/11/2017 14:43:14 Cervical radiculopathy 20799519 M54.12 Spinal kaycee nosis in cervical region 61324166 M48.02 Degenerati on of cervical intervertebral disc 71029152 M50.30 Lesion of thoracic spine 576769502 M99.9 36525 Christophe Martinez MD PAIN OFFICE [address] [facility] [place] [address] 09/12/2017 08:33:15 09/15/2017 12:04:47 Cervical radiculopathy 46888261 M54.12 Spinal kaycee nosis in cervical region 51368479 M48.02 Degenerati on of cervical intervertebral disc 21689707 M50.30 Lesion of thoracic spine 751106732 M99.9 95810 Christophe Martinez MD PAIN OFFICE [address] [facility] [place] [address] 11/14/2017 09:28:53 11/14/2017 11:35:43 Cervical radiculopathy 17051151 M54.12 Spinal kaycee nosis in cervical region 55845991 M48.02 Degenerati on of cervical intervertebral disc 78325100 M50.30 Lesion of thoracic spine 375804965 M99.9 63730 Christophe Martinez MD PAIN OFFICE [address] [facility] [place] [address] 03/09/2018 08:27:21 03/11/2018 10:39:59 Cervical radiculopathy 71725228 M54.12 Spinal kaycee nosis in cervical region 07294536 M48.02 Degenerati on of cervical intervertebral disc 56461364 M50.30 Lesion of thoracic spine 921210565 M99.9 75676 Christophe Martinez MD PAIN OFFICE [address] [facility] [place] [address] 06/22/2018 13:03:36 07/07/2018 09:54:11 Cervical radiculopathy 43710419 M54.12 Spinal kaycee nosis in cervical region 85021358 M48.02 Degenerati on of cervical intervertebral disc 26230366 M50.30 Lesion of thoracic spine 546446138 M99.9 57062 Christophe Martinez MD PAIN OFFICE [address] [place] [address] 08/02/2018 09:58:36 08/07/2018 09:08:45 Cervical radiculopathy 89344804 M54.12 Spinal kaycee nosis in cervical region 96008175 M48.02 Degenerati on of cervical intervertebral disc 45540701 M50.30 Lesion of thoracic spine 581091505 M99.9 20263 Christophe Martinez MD PAIN OFFICE [address] [place] [address] 07/19/2022 12:58:47 07/19/2022 15:23:48 Lumbar radiculopathy 659292622 M54.16 Degenerati on of lumbar intervertebral disc 31161068 M51.36 17779 Christophe Martinez MD PAIN OFFICE [address] [place] [address] 09/28/2022 14:57:29 09/28/2022 15:27:36 Lumbar radiculopathy 437934074 M54.16 Degenerati on of lumbar intervertebral disc 46143798 M51.36 54701 Christophe Martinez MD PAIN OFFICE [address] [place] [address] 12/31/2022 09:43:21 01/24/2023 10:59:58 Cervical radiculopathy 44042344 M54.12 Muscle pain 31083390 M79 .18 Lesion of thoracic spine 528673873 M99.9 Health Concerns Section Related Observation LastModified by Organization Detai ls LastModified Time None Recorded Concern Status LastModified by Organization Details LastModified Time None Recorded Advance Directives Directive None Recorded Payers Encounter Date Sequence Insurance Name Policy Number Policy Moore Covered Member ID Moore Member ID Guarantor Name 06/22/2018 1 [employer] ([employer]) [id number] Louise Gurrola [id number] Louise Gurrola 08/02/2018 1 [employer] ([facility]) [id number] Louise Gurrola [id number] 2 Louise Gurrola 07/19/[address] [facility] ([facility]) [id number] Louise Gurrola [id number] 2 Louise Gurrola 09/28/[address] [facility] ([facility]) [id number] Louise Gurrola [id number] 2 Louise Gurrola 12/31/[address] [facility] ([facility]) [id number] Louise Gurrola [id number] 2 Louise Gurrola Notes Date Note Type [...] left pleural effusion. Christophe Martinez MD [address] , [address], [place], [address], [facility] 07/10/2018 10:13:41 08/02/2018 text/html She [...] would become high. Christophe Martinez MD [address] , [address], [place], [address], [facility] 08/07/2018 13:51:35 07/19/2022 text/html Louise Gurrola??is a 61 year old woman with complaints of low back pain radiating into left lower extremity. 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 Christophe Martinze MD [address] [facility] , [facility] [address], [place], [address], [facility] - [facility] Management 07/19/2022 15:35:42 09/28/2022 text/html She is here for a trial of lumbar epidural steroid injection under fluoroscopic guidance. Christophe Martinez MD [address] [facility] , [facility] [address], [place], [address], [facility] - [facility] Management 09/28/2022 15:49:50 12/31/2022 text/html [...] or bowel incontinence. Christophe Martinez MD [address] [facility] [address], [facility] [place] [address], [facility] 01/24/2023 11:06:53 OBGyn Episode No OBEpisode recorded.
--- OUTSIDE RECORDS SUMMARY | 2024-10-03 11:30 | XMS_ITS | Data Portability ---
Author Organization [facility] Address [address] [place] [address] Care Team Providers Care Crop Farm Workers Name Role Phone FARIDA AGANNA Primary Care Provider [phone] Assessment No assessment recorded. Plan of Treatment [...] 2 2V TMJ LEFT 2024 025 [email or web address] [facility], [address] [facility], [address], [address], 10/01/2024 15:01:06 Medication Orders None recorded . [...] a4ajBk vP9nXo QUaueC m3YtLR FvZlgJ JJ8mAn HZtai3 7v7468 AC0KqY 3SDWaG gKiQtr MwF INTERFACE [facility] [address], [place], [address], 10/01/2024 13:50:07 10/02/19 25 10/01/2024 XR, finge r(s), 2 or more view http:/ [email or web address]:[email or web address] ?Encry pted=s hAaTro YD8dLq bEUv6g %2BXZw aYqtaq 0bqfl% 2Fg9IQ a4ajBk vP9nXo QUaueC m3YtLR FvZlgJ JJ8mAn HZtai3 0w3710 AC0KqY 3SDWaG gKiQtr MwF INTERFACE [facility] [address], [place], [address], 10/01/2024 13:50:08 Result Notes None recorded. Procedures Surgical History Date Name Laterality Status Provider Name and Address Organization Details Recorded Time JZCelestone Wrist Tendon Inj completed Eduard Pearson PA-C [address] [facility], [place], [address], [facility] - [facility] 10/01/2024 14:10:30 Imaging Results Imaging Date Name Status LastModified by Organiz ation Details LastModified Time 10/01/2024 XR, finger(s), 2 or more view completed [facility] [address], [place], [address], 10/01/2024 13:50:07 10/01/2024 XR, finger(s), 2 or more view completed [facility] [address], [place], [address], 10/01/2024 13:50:08 Procedure Notes None recorded. Medical Equipment None Reported. Allergies Allergen ID Allergen Name Allergen Category Reaction Reaction Severity Criticality Documentation Date Start Date Code Code System Note Provider Name and Address Organization Details Recorded Time 858270 simvastat in medicatio n Not available Not available Not available 10/01/2024 72034 RxNorm SHELL shaw, [place] - [facility] 13:41:21 Medications Name Sig Start Date Stop [...] Updated DateTime 10/01/2024 167.64 cm 33.9 kg/m2 35057.4 g SHELL [place] - [facility] 10/01/2024 13:41:05 Social History None recorded. Functional Status None recorded. Mental Status None recorded. Family History Nothing Reported. Medical History No medical history recorded. Gynecological HistoryNo gynecological history recorded. Obstetrics History GPAL:G 0 P 0 0 0 0 Past Encounters Encounter ID Performer Location Encounter Start Date Encounter Closed Date Diagnosis/Indication Diagnosis SNOMED-CT Code Diagnosis ICD10 Code Diagnosis Note [id number] [facility] [place] [address] [place] [address] 10/01/2024 13:03:22 10/01/2024 14:10:47 Pain of left hand 8025617794 04719 M79.642 Health Concerns Section Related Observation LastModified by Organization Detai ls LastModified Time None Recorded Concern Status LastModified by Organization Details LastModified Time None Recorded Advance Directives Directive None Recorded Payers Encounter Date Sequence Insurance Name Policy Number Policy Moore Covered Member ID Moore Member ID Guarantor Name 10/01/2024 1 [facility]UE (MEDICARE REPLACEMENT PPO) [id number] Louise Gurrola [id number] Louise Gurrola Notes Date Note Type [...] pain. 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 Has pain with [...] weeks. No improvement. Eduard Pearson PA-C [address], [place], [address], [place] [facility] 10/01/2024 14:10:46 OBGyn Episode No OBEpisode recorded.
--- OUTSIDE RECORDS SUMMARY | 2024-10-03 11:30 | XMS_ITS | Patient Health Record ---
Author Organization [employer] [facility] Address [address] [facility] [address] [place] [address] Care Team Providers Care Director Of Clinical Services Name Role Phone Tia Bates MD Primary Care Provider Unavaila Geraldine Tinoco Unavailable [phone] Reason For Referral No Information Medications Medication SIG (Take, Route, Frequency, Duration) Notes Start Date End Date Status Metoprolol Tartrate 100MG 1 ORAL twice daily for -3 [facility] 07/26/2011 Active Spironolactone 1 ORAL daily for -3 [facility] 10/15/2013 Active Aygestin 5 mg 1 ORAL daily for -3 [facility] 08/03/2012 Active Lisinopril 40MG 1 ORAL daily for -3 [facility] 07/26/2011 Active Mirena 20 MCG/24HR Intrauterine Active Aygestin 5 MG 1 tablet Orally TWIC E A DAY for 30 days 09/16/2014 Active Problems Problem Type SNOMED Code ICD Code Onset Dates Problem Status W/U Status Risk Notes Problem Goiter (9917419) Goiter, unspecified (240.9) Active confirmed Major Problem Essential hypertension (13313018) Unspecified essential hypertension (401.9) Active confirmed Major Problem Postmenopausal bleeding (62492947) Postmenopausal bleeding (627.1) Active confirmed Diag Problem Menopausal symptom (28517019) Symptomatic menopausal or female climacteric states (627.2) Active confirmed Major Problem Degeneration of intervertebral disc (50623967) Degeneration of intervertebral disc, site unspecified (722.6) Active confirmed Major Plan Of Treatment No Information Insurance Providers Payer Name Payer Address Payer Phone Subscriber Number Group Number Insured Name Patient Relationship to Insured Coverage Start Date Coverage End Date [employer] [address] [place] [id number] [phone] [id number] ISIDRO TINOCO Spouse - patient is the spouse of the insured Medical (General) History Medical History History ICD Code Postmenopausal bleeding 627.1 Unspecified essential hypertension 401.9 Goiter, unspecified 240.9 Degeneration of intervertebral disc, sit e unspecified 722.6 Surgical History Surgery Date(Month/Year) Thyroid Biopsy Colonoscopy Hospitalization History Reason Date(Month/Year) 2 Vaginal Deliveries
[2024-10-03 13:42] LABS: Appearance Urine Cloudy; Color Urine Yellow; Glucose Urine UA Negative (Negative); Leukocyte Esterase Urine Moderate (2+) (Negative); Nitrite Urine Negative (Negative); PH 6.5 (5.0-9.0); Specific Gravity - Urine 1.015 (1.005-1.025); UMIC TRIGGER UA YES; Urine Blood Large (3+) (Negative); Urine Ketones Negative (Negative); Urine Protein 30 (1+) mg/dL (Neg-Trace)
[2024-10-03 13:50] LABS: Bacteria Urine None Seen (None Seen); Hyaline Casts Urine 0-2 /LPF (0-2); RBC Urine >20 /HPF (0-2); Squamous Epithelial Cell Urine 0-2 /HPF (0-2); WBC Urine >50 /HPF (0-5)
== END 2024-10-03 10:02 | disposition home or self-care (01) ==
LOC: HO.HMGCLDS 10:01
PROVIDERS: PCP Internal Medicine; Visit Provider Internal Medicine
DX: R30.0 Dysuria (principal)
CPT/HCPCS: 81001; 87086

== ENCOUNTER 2024-10-09 11:41 | Outpatient (REF) | payer MEDICARE, SELFPAY ==
[2024-10-09 13:06] LABS: Urine Cytology See Pathology rpt
--- OUTSIDE RECORDS SUMMARY | 2024-10-09 13:52 | XMS_ITS | Patient Health Record ---
Author Organization [facility] Address [address] [place] [address] Care Team Providers Care Town Administrator Name Role Phone Tia Bates MD Primary Care Provider Unavaila Geraldine Tinoco Unavailable [phone] Reason For Referral No Information Medications Medication SIG (Take, Route, Frequency, Duration) Notes Start Date End Date Status Metoprolol Tartrate 100MG 1 ORAL twice daily for -3 [facility] 07/26/2011 Active Spironolactone 1 ORAL daily for -3 [facility] 10/15/2013 Active Aygestin 5 mg 1 ORAL daily for -3 [facility] 08/03/2012 Active Lisinopril 40MG 1 ORAL daily for -3 [facility] 07/26/2011 Active Mirena 20 MCG/24HR Intrauterine Active Aygestin 5 MG 1 tablet Orally TWIC E A DAY for 30 days 09/16/2014 Active Problems Problem Type SNOMED Code ICD Code Onset Dates Problem Status W/U Status Risk Notes Problem Goiter (8069606) Goiter, unspecified (240.9) Active confirmed Major Problem Essential hypertension (48514322) Unspecified essential hypertension (401.9) Active confirmed Major Problem Postmenopausal bleeding (14493343) Postmenopausal bleeding (627.1) Active confirmed Diag Problem Menopausal symptom (63173059) Symptomatic menopausal or female climacteric states (627.2) Active confirmed Major Problem Degeneration of intervertebral disc (56598270) Degeneration of intervertebral disc, site unspecified (722.6) Active confirmed Major Plan Of Treatment No Information Insurance Providers Payer Name Payer Address Payer Phone Subscriber Number Group Number Insured Name Patient Relationship to Insured Coverage Start Date Coverage End Date [employer] [address] NOAM KEENAN [address] [id number] ISIDRO TINOCO Spouse - patient is the spouse of the insured Medical (General) History Medical History History ICD Code Postmenopausal bleeding 627.1 Unspecified essential hypertension 401.9 Goiter, unspecified 240.9 Degeneration of intervertebral disc, sit e unspecified 722.6 Surgical History Surgery Date(Month/Year) Thyroid Biopsy Colonoscopy Hospitalization History Reason Date(Month/Year) 2 Vaginal Deliveries
--- OUTSIDE RECORDS SUMMARY | 2024-10-09 13:52 | XMS_ITS | Data Portability ---
Author Organization [facility], PAIN OFFICE Address [address] [facility] [place] [address] Care Team Providers Care Real Estate Economist Name Role Phone CYN AG Primary Care Provider JENIFER MCDONALD Referring Provider [phone] Assessment Encounter Date Assessment Date Assessment LastModified [...] w/o contrast - Approval in place - [id number]- Please schedule with patient expires 01/15/20232022 023 [facility] ([facility]), [address] [place], [address], 17:45:01 NM, bone scan, whole body 2018 019 [facility], [address] [place], [address], 10:19:33 Medication Orders None recorded. Patient TargetsNo targets recorded. Patient Instructions Encounter Date Encounter Id Patient Instructions Last Modified By Organization Details Last Modified Time 06/22/2018 [id number] She was advised against bed rest lasting longer than four days and to continue activities as tolerated. [email or web address] Not available 07/07/2018 09:17:58 08/02/2018 [id number] She was advised against bed rest lasting longer than four days and to continue activities as tolerated. [email or web address] Not available 08/07/2018 09:06:36 07/19/2022 [id number] She was advised against bed rest lasting longer than four days and to continue activities as tolerated. [email or web address] Not available 07/19/2022 14:06:07 09/28/2022 [id number] She was advised against bed rest lasting longer than four days and to continue activities as tolerated. [email or web address] Not available 09/28/2022 15:23:30 12/31/2022 [id number] She was advised against bed rest lasting longer than four days and to continue activities as tolerated. [email or web address] Not available 01/24/2023 10:57:04 Reason for Referral None Reported. Results Created Date Observation Date Name Description Value Unit Range Abnormal Flag Note LastModifiedBy Organization Detail LastModifiedTime 08/02/19 19 07/25/2018 NM, bone scan, whole body No observ ation record ed. [facility] (Imaging) [address], [place], [address], 08/03/2018 12:49:22 07/22/19 23 07/21/2022 MRI, lumba r spine , w/o contr ast [facility] Access ion Number : [id number] Name: Mariluz oglesby, Louise Medica l Record Number : [id number] Date of : 1960 Date of Exam: 2022 Referr ing Physic any: Christophe [facility] [address] [place] [address] Exam: MR Lumbar Spine (C-) CPT 13995 Room Descri ption: [facility] Norberto 1.5 Mob MRI of the [...] and disc desicc ation are noted diffus noar. L1-L2 and L2-L3 levels are unrema rkable [...] onical ly Signed By: Tyron Pickard MD [facility] ([facility]) [address] [place], [address], 07/26/2022 13:21:52 Result Notes None recorded. Problems Name Problem SNOMED Code Status Onset Date Resolution Date Notes Provider Name and Address Organization Details Recorded Time Cervical radiculopa thy 71996830 Active Christophe oglesby MD [address] [facility] , [address], [place], [address], [place] [facility] 8 09:54:01 Spinal stenosis in cervical region 63838979 Active Christophe oglesby MD [address] , [address], [place], [address], [place] [facility] 8 09:54:14 Degenerati on of cervical interverte bral disc 06579219 Justin oglesby MD [address] , [address], [place], [address], [place] [facility] 8 09:54:27 Lesion of thoracic spine 099217725 Active Hemangioma S/P surgery Christophe oglesby MD [address] , [address], [place], [address], [place] [facility] 8 09:55:41 Neoplasm of nervous system 585852592 Active Christophe oglesby MD [address] [facility] , [address], [place], [address], [place] [facility] 8 14:37:45 Muscle pain 07996756 Active Christophe oglesby MD [address] , [address], [place], [address], [place] [facility] 8 10:34:37 Problem Notes None recorded. Procedures Surgical History Date Name Laterality Status Provider Name and Address Organization Details Recorded Time 09/29/19 Lumbar Epidural steroid injection under fluoroscopic guidance completed Christophe Martinez MD [address] , [address], [place], [address], [place] [facility] 09/28/2022 15:22:56 03/09/20 18 Trigger Point Injections under ultrasound guidance completed Christophe Martinez MD [address] , [address], [place], [address], [place] [facility] 03/11/2018 10:36:13 Other completed Marcelina Castilol [place] [facility] 08/04/2017 14:03:45 Other completed Marcelina Castillo [place] [facility] 08/04/2017 14:06:10 Imaging Results Imaging Date Name Status LastModified by Organiz ation Details LastModified Time 07/25/2018 NM, bone scan, whole body completed [facility]) [address] [place], [address], 08/03/2018 12:49:22 07/21/2022 MRI, lumbar spine, w/o contrast completed [email or web address] [facility] [address] [place], [address], 07/26/2022 13:21:52 Procedure Notes None recorded. Medical Equipment None Reported. Allergies Allergen ID Allergen Name Allergen Category Reaction Reaction Severity Criticality Documentation Date Start Date Code Code System Note Provider Name and Address Organization Details Recorded Time 46517 simvastat in medicatio n myalgias (muscle pain) Not available Not available 08/04/2017 51537 RxNorm ROSANNE [facility] 8 14:00:14 [...] % 125 mm[Hg] 72 mm[Hg] Marcelina Castillo [place] - [facility] 9 13:12:25 Date Recorded Body height Heart rate Oxygen saturation Oxygen saturation in Arterial blood by Pulse oximetry Systolic blood pressure Diastolic blood pressure Provider Name and Address Organization Details Last Updated DateTime 9 170.18 cm 60 /min 97 % 97 % 167 mm[Hg] 83 mm[Hg] Marcelina Castillo [place] - [facility] 9 10:10:41 Date Recorded Heart rate Oxygen saturation Oxygen saturation in Arterial blood by Pulse oximetry Systolic blood pressure Diastolic blood pressure Provider Name and Address Organization Details Last Updated DateTime 3 72 /min 97 % 97 % 121 mm[Hg] 65 mm[Hg] Kathy Andrade [place] - [facility] 3 13:13:31 Date Recorded Heart rate Oxygen saturation Oxygen saturation in Arterial blood by Pulse oximetry Systolic blood pressure Diastolic blood pressure Provider Name and Address Organization Details Last Updated DateTime 3 82 /min 97 % 97 % 140 mm[Hg] 65 mm[Hg] Kay Ayala [place] - [facility] 3 15:01:59 Date Recorded Body height Body mass index (BMI) Body weight Heart rate Oxygen saturation Oxygen saturation in Arterial blood by Pulse oximetry Pain severity - 0-10 verbal numeric rating [Score] - Reported Systolic blood pressure Diastolic blood pressure Provider Name and Address Organization Details Last Updated DateTime 3 170.18 cm 32.9 kg/m2 19864.4 g 62 /min 98 % 98 % 6 131 mm[Hg] 70 mm[Hg] Christophe oglesby MD [address] , [address], [place], [address], [facility] 3 09:51:24 Social History Question Answer Notes LastModified by Organizat ion Details LastModified Time Tobacco Smoking Status Never Smoker Marcelina shaw, [facility] 08/04/2017 14:02:15 What Is Your Level Of Alcohol Consumption? 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 Information not available 08/04/2017 Live Alone Or [...] SNOMED-CT Code Diagnosis ICD10 Code Diagnosis Note 03148 Christophe Martinez MD PAIN OFFICE [address] [facility] [place] [address] 08/04/2017 13:21:04 08/11/2017 14:43:14 Cervical radiculopathy 63142736 M54.12 Spinal kaycee nosis in cervical region 80807300 M48.02 Degenerati on of cervical intervertebral disc 78829811 M50.30 Lesion of thoracic spine 780436702 M99.9 39641 Christophe Martinez MD PAIN OFFICE [address] [facility] [place] [address] 09/12/2017 08:33:15 09/15/2017 12:04:47 Cervical radiculopathy 86717967 M54.12 Spinal kaycee nosis in cervical region 10683426 M48.02 Degenerati on of cervical intervertebral disc 48053022 M50.30 Lesion of thoracic spine 372159028 M99.9 58529 Christophe Martinez MD PAIN OFFICE [address] [facility] [place] [address] 11/14/2017 09:28:53 11/14/2017 11:35:43 Cervical radiculopathy 43814449 M54.12 Spinal kaycee nosis in cervical region 89587215 M48.02 Degenerati on of cervical intervertebral disc 91543226 M50.30 Lesion of thoracic spine 769934287 M99.9 80605 Christophe Martinez MD PAIN OFFICE [address] [facility] [place] [address] 03/09/2018 08:27:21 03/11/2018 10:39:59 Cervical radiculopathy 21421668 M54.12 Spinal kaycee nosis in cervical region 38779739 M48.02 Degenerati on of cervical intervertebral disc 20375910 M50.30 Lesion of thoracic spine 397936589 M99.9 69852 Christophe Martinez MD PAIN OFFICE [address] [facility] [place] [address] 06/22/2018 13:03:36 07/07/2018 09:54:11 Cervical radiculopathy 62671547 M54.12 Spinal kaycee nosis in cervical region 62952938 M48.02 Degenerati on of cervical intervertebral disc 66591390 M50.30 Lesion of thoracic spine 563464464 M99.9 94916 Christophe Martinez MD PAIN OFFICE [address] [place] [address] 08/02/2018 09:58:36 08/07/2018 09:08:45 Cervical radiculopathy 10637939 M54.12 Spinal kaycee nosis in cervical region 15920669 M48.02 Degenerati on of cervical intervertebral disc 09658908 M50.30 Lesion of thoracic spine 799279164 M99.9 43135 Christophe Martinez MD PAIN OFFICE [address] [place] [address] 07/19/2022 12:58:47 07/19/2022 15:23:48 Lumbar radiculopathy 415254977 M54.16 Degenerati on of lumbar intervertebral disc 49521601 M51.36 16722 Christophe Martinez MD PAIN OFFICE [address] [place] [address] 09/28/2022 14:57:29 09/28/2022 15:27:36 Lumbar radiculopathy 809081715 M54.16 Degenerati on of lumbar intervertebral disc 21926720 M51.36 72663 Christophe Martinez MD PAIN OFFICE [address] [place] [address] 12/31/2022 09:43:21 01/24/2023 10:59:58 Cervical radiculopathy 17227935 M54.12 Muscle pain 60329253 M79 .18 Lesion of thoracic spine 614961963 M99.9 Health Concerns Section Related Observation LastModified by Organization Detai ls LastModified Time None Recorded Concern Status LastModified by Organization Details LastModified Time None Recorded Advance Directives Directive None Recorded Payers Encounter Date Sequence Insurance Name Policy Number Policy Moore Covered Member ID Moore Member ID Guarantor Name 06/22/2018 1 [employer] (O) [id number] Louise Taman [id number] 2 Louise Gurrola 08/02/2018 1 [facility] [id number] Louise Gurrola [id number] 2 Louise Gurrola 07/19/2022 1 [facility] ([facility]) [id number] Louise Gurrola [id number] 2 Louise Gurrola 09/28/2022 1 [facility] ([facility]) [id number] Louise Gurrola [id number] 2 Louise Gurrola 12/31/2022 1 [facility] ([facility]) [id number] Louise Gurrola [id number] 2 Louise Gurrola Notes Date Note Type [...] pleural effusion. Christophe Martinez MD [address] , [address], [place], [address], [facility] 07/10/2018 10:13:41 08/02/2018 text/html She [...] would become high. Christophe Martinez MD [address] , [address], [place], [address], [facility] 08/07/2018 13:51:35 07/19/2022 text/html Louise Gurrola? ? ?is a 61 year old woman with complaints of low back pain radiating into left lower extremity. 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 Christophe Martinez MD [address] [facility] , [address], [place], [address], [facility] - Pain Management 07/19/2022 15:35:42 09/28/2022 text/html She is here for a trial of lumbar epidural steroid injection under fluoroscopic guidance. Christophe Martinez MD [address] [facility] , [address], [place], [address], [facility] - Pain Management 09/28/2022 15:49:50 12/31/2022 [...] or bowel incontinence. Christophe Martinez MD [address] [facility] , [address], [place], [address], [place] [facility] 01/24/2023 11:06:53 OBGyn Episode No OBEpisode recorded.
--- OUTSIDE RECORDS SUMMARY | 2024-10-09 13:52 | XMS_ITS | Data Portability ---
Author Organization [facility], [address] Address [address] [place] [address] Care Team Providers Care Sourcing Specialist Name Role Phone YCN AG Primary Care Provider [phone] Assessment No assessment recorded. Plan of Treatment Reminders Order Date Submit Date Provider Last Modified By Organization Details Last Modified Time Details Appointments None recorded. Lab None recorded. Referral orthopedic surgeon referral - Fracture middle phalanx of left hand ring finger. need further evaluation and treatment. [address] [facility], [address], [place], [address], 3 13:56:50 Procedures None recorded. Surgeries None recorded. Imaging XR, hand, 3 or more view 2022 023 [facility], [address] [place] [address], [address], 3 14:38:26 Medication Orders None recorded. Patient TargetsNo targets recorded. Patient Instructions Encounter Date Encounter Id Patient Instructions Last Modified By Organization Details Last Modified Time 03/07/2023 [id number] What are common finger injuries? Common finger [...] doctor might recommend that you take an efmq-egz-vrfthtq medicine for your pain. Kajz-qpm-arfjhhv medicines include acetaminophen (sample brand name: Tylenol), [...] more view No observ ation record ed. [email or web address] [address] [place], [address], 03/07/2023 14:45:03 Result Notes None recorded. Procedures Surgical History Date Name Laterality Status Provider Name and Address Organization Details Recorded Time hysterectomy completed KRISTIAN RUBI - [facility] 03/07/2023 12:45:38 Imaging Results Imaging Date Name Status LastModified by Organiz ation Details LastModified Time 03/07/2023 XR, hand, 3 or more view completed [email or web address] [address] [place], [address], 03/07/2023 14:45:03 Procedure Notes None recorded. Medical [...] Address Organization Details Last Updated DateTime 3 71939.4 g 33.9 kg/m2 167.64 cm 98.5 [degF] 97 % 97 % 73 /min 16 /min 137 mm[Hg] 83 mm[Hg] KRISTIAN PORRAS PA [facility] 12:49:09 Social History Question Answer Notes LastModified by Organizat ion Details LastModified Time Tobacco Smoking Status Never Smoker KRISTIAN PORRAS null PA [employer] [facility] 03/07/2023 12:46:25 What Is Your Level Of Alcohol Consumption? None [email or web address] Information not available 03/07/2023 Do You Use Any Illicit Or Recreational Drugs? No [email or web address] Information not available 03/07/2023 Sex: Unknown Functional [...] SNOMED-CT Code Diagnosis ICD10 Code Diagnosis Note [id number] [address] [place] [address] 01/31/2016 16:44:31 01/31/2016 17:49:16 [id number] [address] [place] [address] 03/30/2015 10:58:39 03/30/2015 11:47:56 [id number] Jonh Hope NP [address] [place] [address] 03/07/2023 11:59:02 03/07/2023 13:56:50 Contusion of left ring finger 6819864299 5361000 S60.042A Fracture o f middle phalanx of finger 718348150 S62.625A Health Concerns Section Related Observation LastModified by Organization Detai ls LastModified Time None Recorded Concern Status LastModified by Organization Details LastModified Time None Recorded Advance Directives Directive None Recorded Payers Encounter Date Sequence Insurance Name Policy Number Policy Moore Covered Member ID Moore Member ID Guarantor Name 03/30/2015 1 [facility] [id number] Abe Gurrola [id number] Louise Gurrola 01/31/2016 1 [facility] [id number] Abe Gurrola [id number] Louise Gurrola 03/07/2023 1 [facility] [id number] Abe Gurrola [id number] Louise Gurrola Notes Date Note Type [...] Hope NP [address] [place], [address], [place] - [facility] 03/07/2023 14:44:13 OBGyn Episode No OBEpisode recorded.
== END 2024-10-09 11:42 | disposition home or self-care (01) ==
LOC: HO.HMGCLDS 11:41
PROVIDERS: PCP Internal Medicine; Visit Provider Internal Medicine
DX: R31.29 Other microscopic hematuria (principal)
CPT/HCPCS: 88112

== ENCOUNTER 2024-10-19 12:36 | Outpatient (REF) | payer MEDICARE, SELFPAY ==
--- NOTE | ~2024-10-19 | US_ITS ---
EXAMINATION: US RETROPERITONEAL COMPLETE (RENAL) CLINICAL INFORMATION: Microscopic hematuria.. COMPARISON: None available. TECHNIQUE: Real-time imaging of the kidneys and bladder. FINDINGS: RIGHT KIDNEY: 13 x 5 x 7 cm (SAG x AP x TRV). Normal echotexture. Normal renal cortical thickness. No solid or cystic lesion. Mild prominent of the pelvicalyceal system. LEFT KIDNEY: 11 x 6 x 5 cm (SAG x AP x TRV). Normal echotexture. Normal renal cortical thickness. Mild prominent of the pelvicalyceal system. Questionable 8 mm hyperechoic area in the mid portion. BLADDER: Fluid-filled. Bilateral ureteral jets are demonstrated. Prevoid bladder volume is 324 mL. Postvoid bladder volume is 26 mL. US/US retroperitoneal comp IMPRESSION: Mild pelvicalyceal ectasia versus mild hydronephrosis, bilaterally. Questionable 8mm hyperechoic lesion, left kidney. 26 cc of residual urine in a post void image.. Electronically signed by: Javi Felder MD 10/19/2024 01:24 PM EDT
--- OUTSIDE RECORDS SUMMARY | 2024-10-19 12:38 | XMS_ITS | Continuity of Care Document ---
Author Organization [facility] Address [address] [place] [address]- Care Team Providers Care Post Graduate Internship Name Role Phone Tia Bates MD Primary Care Physician [phone] [id number] Date(s): 09/17/24 - 10/17/24 [facility] [address] [place] [address] Attending Physician: Admtr, Rosales8 Admitting Physician: Admtr, ArWhit Referring Physician: Admtr, Ar8 Encounter Type: Triage Allergies, Adverse Reactions, Alerts Substance Criticality Severity Reaction Reaction Severity Status simvastatin Active Medications estradiol 0.1 mg/g vaginal cream = 1 Gm, Vaginally, Every Tuesday and , # 42.5 Gm, 3 Refills, Maintenance, 04/07/21 3:29:00 PM EDT, [facility], Partial fill upon patient request if the prescription is for a schedule II opioid drug., 167, cm, 04/06/21 9:33:00 EDT, Height, 93.4, kg, 01/25/21 0:00:00 EDT, DryWeight Start Date: 04/07/21 Status: Ordered Quantity: 42.5 Unit: g Repeat number: 4 hydrochlorothiazide 12.5 mg oral capsule = 12.5 mg, By Mouth, Daily, # 30 capsule, 0 Refills, Maintenance, 05/15/11 9:22:57 PM EST, Capsule Start Date: 05/15/11 Status: Ordered Quantity: 30.0 Unit: capsule Repeat number: 1 lidocaine 4% topical cream 1 application, Topically, Once, Apply to plastic wrap then to the nipple/areola before arriving forsurgery, cover w plastic wrap (Saran Wrap), # 5 Gm, 0 Refills, Soft Stop, 09/21/24 2:34:00 PM EDT, Cream, [facility] #[id number], Partial fill upon patient request if the prescription is for a schedule IIopioid drug., 1 application Topically Once,Instr:Apply to plastic wrap then to the nipple/areola before arriving for surgery, cover w plastic wrap (Saran Wrap), 167, cm, 09/21/24 10:57:00 EDT, Height Start Date: 09/21/24 Status: Ordered Quantity: 5.0 Unit: g Repeat number: 1 lisinopril 20 mg oral tablet 1 tablet = 20 mg, By Mouth, 2 times a day, # 30 tablet, 0 Refills, Maintenance, 05/15/11 9:22:40 PM EST, Tablet Start Date: 05/15/11 Status: Ordered Quantity: 30.0 Unit: tablet Repeat number: 1 lovastatin 20 mg oral tablet 1 tablet = 20 mg, By Mouth, Daily, # 30 tablet, 0 Refills, Maintenance, 01/25/21 2:15:00 AM EDT, Tablet, Partial fill upon patient request if the prescription is for a schedule II opioid drug. Start Date: 01/25/21 Status: Ordered Quantity: 30.0 Unit: tablet Repeat number: 1 Lyrica 75 mg oral capsule 1 capsule = 75 mg, By Mouth, 4 times a day, 0 Refills, Maintenance, 01/23/18 9:54:49 AM EDT Start Date: 01/23/18 Status: Ordered Repeat number: 1 Metoprolol = 25 mg, By Mouth, 2 times a day, 0 Refills, Maintenance, 02/18/15 2:16:26 PM EDT Start Date: 02/18/15 Status: Ordered Repeat number: 1 pantoprazole 20 mg oral enteric coated tablet 1 tablet = 20 mg, By Mouth, Daily, # 180 tablet, 0 Refills, Maintenance, 04/20/12 8:54:29 AM EST, ECTablet Start Date: 04/20/12 Status: Ordered Quantity: 180.0 Unit: tablet Repeat number: 1 spironolactone 25 mg oral tablet 0.5 tablet = 12.5 mg, By Mouth, Daily, PRN Other, 0 Refills, Maintenance, 11/07/14 1:12:12 PM EDT Start Date: 11/07/14 Status: Ordered Repeat number: 1 Problem List Condition Confirmation Course Effective Dates Status Health Status Informant Atrophic vulva Confirmed Active Hypercholesterolemia Confirmed Active Hypertension Confirmed Active Mixed incontinence Confirmed Active Nontoxic nodular thyroid goiter Confirmed Active Severe obesity (BMI 35.0-39.9) with comorbidity Confirmed Active Urinary urgency Confirmed Active Social History Social History Type Response Smoking Status Never smoker; Tobacc o user in household: No entered on: 11/07/14 Sex Female Sex Representation Female (finding) Patient Care team information Care Team Personnel Name: Tia Bates MD Position: [facility] Physician - Primary Care Member Role: PCP Address: [address] [place] [id number] Telecom: Care Team Related Persons Name: BALBIR TINOCO Name: CASSANDRA TINOCO Name: ISIDRO TINOCO Name: AGUSTINA TINOCO Insurance Providers Guarantor name: JERI [facility]On [facility] of [facility]: 1 Payer: [employer] P[employer] Member Number: NA Policy Number: NA Group Number: NA
--- OUTSIDE RECORDS SUMMARY | 2024-10-19 12:38 | XMS_ITS | Patient Health Record ---
Author Organization [email or web address] [facility] Address [address] [place] [address] Care Team Providers Care Consumer Recruiter Name Role Phone Tia Bates MD Primary Care Provider Unavaila Geraldine Tinoco Unavailable [phone] Reason For Referral No Information Medications Medication SIG (Take, Route, Frequency, Duration) Notes Start Date End Date Status Metoprolol Tartrate 100MG 1 ORAL twice daily for -3 [facility] 07/26/2011 Active Spironolactone 1 ORAL daily for -3 [facility] 10/15/2013 Active Aygestin 5 mg 1 ORAL daily for -3 [facility] 08/03/2012 Active Lisinopril 40MG 1 ORAL daily for -3 [facility] 07/26/2011 Active Mirena 20 MCG/24HR Intrauterine Active Aygestin 5 MG 1 tablet Orally TWIC E A DAY for 30 days 09/16/2014 Active Problems Problem Type SNOMED Code ICD Code Onset Dates Problem Status W/U Status Risk Notes Problem Goiter (6031119) Goiter, unspecified (240.9) Active confirmed Major Problem Essential hypertension (69751576) Unspecified essential hypertension (401.9) Active confirmed Major Problem Postmenopausal bleeding (05537451) Postmenopausal bleeding (627.1) Active confirmed Diag Problem Menopausal symptom (15015961) Symptomatic menopausal or female climacteric states (627.2) Active confirmed Major Problem Degeneration of intervertebral disc (55716562) Degeneration of intervertebral disc, site unspecified (722.6) Active confirmed Major Plan Of Treatment No Information Insurance Providers Payer Name Payer Address Payer Phone Subscriber Number Group Number Insured Name Patient Relationship to Insured Coverage Start Date Coverage End Date [employer] [address] [place]N [address] [id number] ISIDRO TINOCO Spouse - patient is the spouse of the insured Medical (General) History Medical History History ICD Code Postmenopausal bleeding 627.1 Unspecified essential hypertension 401.9 Goiter, unspecified 240.9 Degeneration of intervertebral disc, sit e unspecified 722.6 Surgical History Surgery Date(Month/Year) Thyroid Biopsy Colonoscopy Hospitalization History Reason Date(Month/Year) 2 Vaginal Deliveries
--- OUTSIDE RECORDS SUMMARY | 2024-10-19 12:38 | XMS_ITS | Data Portability ---
Author Organization ELICIA [facility]anson [facility], [address] Address [address] [place] [address] Care Team Providers Care Studio Operation Engineer Name Role Phone CYN AG Primary Care Provider Assessment No assessment recorded. Plan of Treatment Reminders Order Date Submit Date Provider Last Modified By Organization Details Last Modified Time Details Appointments None recorded. Lab None recorded. Referral orthopedic surgeon referral - Fracture middle phalanx of left hand ring finger. need further evaluation and treatment. [address] [facility], [address], [place], [address], 3 13:56:50 Procedures None recorded. Surgeries None recorded. Imaging XR, hand, 3 or more view 2022 023 [facility], [address] [place] [address], [address], 3 14:38:26 Medication Orders None recorded. Patient TargetsNo targets recorded. Patient Instructions Encounter Date Encounter Id Patient Instructions Last Modified By Organization Details Last Modified Time 03/07/2023 [id number] What are common finger injuries? Common finger [...] doctor might recommend that you take an fxuq-vox-eklyzpb medicine for your pain. Owmq-jzx-nlvktti medicines include acetaminophen (sample brand name: Tylenol), [...] more view No observ ation record ed. [facility] [address] [place], [address], 03/07/2023 14:45:03 Result Notes None recorded. Procedures Surgical History Date Name Laterality Status Provider Name and Address Organization Details Recorded Time hysterectomy completed KRISTIAN RUBI - [facility] 03/07/2023 12:45:38 Imaging Results Imaging Date Name Status LastModified by Organiz ation Details LastModified Time 03/07/2023 XR, hand, 3 or more view completed [facility] [address] [place], [address], 03/07/2023 14:45:03 Procedure Notes None recorded. Medical [...] Address Organization Details Last Updated DateTime 3 93263.4 g 33.9 kg/m2 167.64 cm 98.5 [degF] 97 % 97 % 73 /min 16 /min 137 mm[Hg] 83 mm[Hg] KRISTIAN PORRAS PA [facility] 12:49:09 Social History Question Answer Notes LastModified by Organizat ion Details LastModified Time Tobacco Smoking Status Never Smoker KRISTIAN PORRAS null [place] [employer] [facility] 03/07/2023 12:46:25 What Is Your Level Of Alcohol Consumption? None [email or web address] Information not available 03/07/2023 Do You Use Any Illicit Or Recreational Drugs? No [email or web address] Information not available 03/07/2023 Sex: Unknown Functional [...] SNOMED-CT Code Diagnosis ICD10 Code Diagnosis Note [id number] [address] [place] [address] 01/31/2016 16:44:31 01/31/2016 17:49:16 [id number] [place] [address] 03/30/2015 10:58:39 03/30/2015 11:47:56 [id number] Jonh Hope NP [address] [place] [address] 03/07/2023 11:59:02 03/07/2023 13:56:50 Contusion of left ring finger [id number] [id number] S60.042A Fracture o f middle phalanx of finger 363499112 S62.625A Health Concerns Section Related Observation LastModified by Organization Detai ls LastModified Time None Recorded Concern Status LastModified by Organization Details LastModified Time None Recorded Advance Directives Directive None Recorded Payers Insurance Date Sequence Insurance Name Policy Number Policy Moore Covered Member ID Moore Member ID Guarantor Name 03/07/2023 1 [facility] [id number] Abe Gurrola [id number] Louies Gurrola Notes Date Note Type Note Provider [...] Hope NP [address] [place], [address], [place] - [facility] 03/07/2023 14:44:13 OBGyn Episode No OBEpisode recorded.
--- OUTSIDE RECORDS SUMMARY | 2024-10-19 12:38 | XMS_ITS | Continuity of Care Document ---
Author Organization [facility] Address [address] [place] [address]- Care Team Providers Care Biodiesel Division Manager Name Role Phone Tia Bates MD Primary Care Physician Encounter 08/24/24 - 10/14/24 [facility] [address], [facility] [address] [place] [address]- Attending Physician: Tia Bates MD Admitting Physician: Tia Bates MD Referring Physician: Tia Bates MD Encounter Type: Pre-Outpt Allergies, Adverse Reactions, Alerts Substance Criticality Severity [...] Soft Stop, 09/21/24 2:34:00 PM EDT, Cream, [facility]/pharmacy #[id number], Partial fill upon patient request if the [...] Team Personnel Name: Tia Bates MD Position: [facility] Physician - Primary Care Member Role: PCP Address: [address] [place] [id number] Telecom: Care Team Related Persons Name: BALBIR TINOCO Name: CASSANDRA TINOCO Name: ISIDRO TINOCO Name: AGUSTINA TINOCO Insurance Providers Guarantor name: JERI TINOCO Health Plan Information #: 1 Payer: NA Member Number: [id number] Policy Number: NA Group Number: [id number] Health Plan Information #: 2 Payer: MEDICARE PART B OUTPT Member Number: [id number] Policy Number: NA Group Number: NA Health Plan Information #: 3 Payer: [employer] PPO Member Number: NA Policy Number: NA Group Number: NA
--- OUTSIDE RECORDS SUMMARY | 2024-10-19 12:38 | XMS_ITS | Continuity of Care Document ---
Author Organization [facility] Address [address] [place] [address]- Care Team Providers Care Wood Tank Builder Name Role Phone Tia Bates MD Primary Care Physician [phone] Encounter [facility] [id number] Date(s): 09/14/24 - 10/17/24 [facility] [address] [place] [address] Attending Physician: Derrick Smith MD Referring Physician: Tia Bates MD Encounter Type: Pre Office Visit Allergies, Adverse Reactions, Alerts Substance Criticality Severity [...] Soft Stop, 09/21/24 2:34:00 PM EDT, Cream, [facility]/pharmacy #[id number], Partial fill upon patient request if the [...] Team Personnel Name: Tia Bates MD Position: [facility] Physician - Primary Care Member Role: PCP Address: [address] [place] [address] Telecom: Care Team Related Persons Name: BALBIR TINOCO Name: CASSANDRA TINOCO Name: ISIDOR TINOCO Name: AGUSTINA TINOCO Insurance Providers Guarantor name: JERI TINOCO Health Plan Information #: 1 Payer: [employer] [facility] PPO Member Number: [id number] Policy Number: NA Group Number: [id number] Health Plan Information #: 3 Payer: [facility] HMO Member Number: [id number] Policy Number: NA Group Number: NA Health Plan Information #: 2 Payer: MEDICARE PART B OUTPT Member Number: [id number] Policy Number: NA Group Number: NA
== END 2024-10-19 12:37 | disposition home or self-care (01) ==
LOC: HO.US 12:36
PROVIDERS: PCP Internal Medicine; Visit Provider Internal Medicine
DX: R31.29 Other microscopic hematuria (principal)
CPT/HCPCS: 76770

== ENCOUNTER → 2024-10-19 12:38 | Outpatient (BNV) | payer MEDICARE, SELFPAY | PROVIDERS: PCP Internal Medicine; Visit Provider Radiology Diagnostic Radiology | DX: R39.14 Feeling of incomplete bladder emptying (principal) | CPT/HCPCS: 76770 ==

== ENCOUNTER 2025-02-07 10:57 | Outpatient (AMB) | payer MEDICARE, SELFPAY ==
--- NOTE | 2025-02-07 10:59 | A.OFFPC_ITS ---
Vital Signs 02/07/25 11:00 Height 5 ft 7 in Weight 207 lb BMI 32.4 BP 102/62 Blood Pressure Location Lt brachial Position Sitting Respiration 18 Pulse 59 Pulse Source Pulse Oximeter Temp 98.4 F Temp Source Oral Pulse Oximetry (%) 99 Oxygen Delivery Method Room Air Intake Visit Reasons: Annual PE Intake Note: Pt is here today for PE. Allergies duloxetine (Cymbalta) Allergy (Unknown, Verified 02/07/25 11:04) dizziness simvastatin Allergy (Unknown, Verified 02/07/25 11:04) weakness Medication List - Last Reconciled 02/07/25 by Tia Bates MD estradiol 0.01%(0.1mg/gram) 1 g vaginal 2XW flu vacc [id number] 6mos up(PF) mL IM hydrochlorothiazide 12.5 mg PO DAILY latanoprost 0.005% 1 drp ophthalmic (eye) DAILY lidocaine 5% 0 patches topical lisinopril 20 mg PO BID lovastatin 20 mg PO DAILY metoprolol succinate ER 100 mg (2 x 50 mg) PO DAILY pantoprazole 40 mg PO QAM pregabalin 150 mg (2 x 75 mg) PO BID spironolactone 12.5 mg (1/2 x 25 mg) PO DAILY tamoxifen 10 mg PO DAILY Tobacco use date assessed: 02/07/25 Fall risk assessment: No Falls in past year Last assessed Fall Risk: 02/07/25 Dental Screening Dental Screen Date: 02/07/25 Did you have a dental visit in the last 12 months?: Yes Did you have a dental problem in the last 6 months where you did not have access to dental care?: No Was dental information given to patient?: Patient has dentist HPI Annual PE HPI Details Pt presents for PE. Pt was dxd with R breast ca, underwent lumpectomy in October and RTx in December at [facility] and started Tamoxifen. HTN and hyperlipid,are stable on meds. [facility] Medical History (Updated 02/07/25 @ 11:59 by Tia Bates MD) Microscopic hematuria Breast CA Glaucoma Dysuria Lung nodule seen on imaging study Hip pain Lumbar radiculopathy, chronic Annual physical exam Multinodular goiter Anxiety GERD (gastroesophageal reflux disease) Cervical radiculopathy Hemangioma Hyperlipidemia HTN (hypertension) Hip pain, bilateral Lower back pain Surgical History (Updated 02/07/25 @ 11:09 by REGI Watt) History of lumpectomy of right breast H/O colonoscopy History of esophagogastroduodenoscopy (EGD) History of hysterectomy Family History Father Bone cancer Mother Stroke Social History Housing: House Alcohol intake: never Patient Tobacco Use Status: Never used Tobacco e-Cigarette/Vaping Use: Never Used Second Hand Smoke Exposure: No service: No Current occupational status: other Cognitive needs: No Hearing needs: No Vision needs: Yes Questionnaire Thrive Questionnaire Date Thrive assessed: 09/14/24 I am a: Patient What is your living situation today?: I have a steady place to live Within the past 12 months, did the food you bought not last and you didn't have the money to get more?: I choose not to answer this question Within the past 12 months, did you worry whether your food would run out before you got money to buy more?: I choose not to answer this question Do you have trouble paying for medicines?: I choose not to answer this question Do you have trouble getting transportation to medical appointments?: No Do you have trouble paying your heating and electricity bill?: No Do you have trouble taking care of your child, family member or friend?: No Do you have trouble with day-to-day activities such as bathing, preparing meals, shopping, managing finances, etc.?: No Are you currently unemployed and looking for a job?: No Are you interested in more education?: No Please select the resources that you would like help with: None Currently or been in a relationship where the following occur: I choose not to answer THRIVE Score: 0 YESSI-7 AMB Questionnaire YESSI-7 Date YESSI - 7 assessed: 09/14/24 Source: Developed by Drs. Drake Hand, Adela Cordova, Branden Yanez and colleagues, with an educational emily from [employer] Review of Systems Const All systems reviewed & are unremarkable except as noted in HPI and below Eyes Reports no additional complaints ENT Reports no additional complaints Card Reports no additional complaints Resp Reports no additional complaints GI Reports no additional complaints Reports no additional complaints Physical exam (Primary Care) Vital Signs: Last Vital Signs Temp 98.4 F 02/07/25 11:00 Pulse 59 02/07/25 11:00 Resp 18 02/07/25 11:00 BP 102/62 02/07/25 11:00 Pulse Ox 99 02/07/25 11:00 Oxygen Delivery Method Room Air 02/07/25 11:00 BMI result Body Mass Index 32.4 Tobacco/Smoking Status: Tobacco use Status Tobacco use date assessed 02/07/25 02/07/25 11:09 Patient Tobacco Use Status Never used Tobacco 02/07/25 11:00 e-Cigarette/Vaping Use Never Used 02/07/25 11:00 Thrive Assessment: Date of Thrive Assessment Date Thrive assessed 09/14/24 02/07/25 11:00 Currently or been in a relationship where the following occur: I choose not to answer Const General: no acute distress HENMT Head: Yes normal to inspection Ears: hearing grossly normal bilaterally Mouth: Normal oral and palatal mucosa present Eyes General: appearance normal, both eyes and all related structures Neck Neck: Yes no lymphadenopathy and Yes supple Resp Effort & Inspection: normal respiratory effort Auscultation: clear to auscultation bilaterally Cardio Rhythm: regular rhythm Heart sounds: S1 normal heart sound present and S2 normal heart sound present GI Inspection: Yes normal to inspection Palpation (GI): Soft to palpation Percussion: Yes normal to percussion Auscultation: normal bowel sounds Coding Level of Care Code Est Pt Prev Care >65y(05606) Diagnoses HTN (hypertension) I10 Hyperlipidemia E78.5 Annual physical exam Z00. Breast CA C50.919 Assessment & Plan Assessment & Plan (1) HTN (hypertension): Code(s): I10 - Essential (primary) hypertension Category: Medical Plan: cont meds (2) Hyperlipidemia: Code(s): E78.5 - Hyperlipidemia, unspecified Category: Medical Plan: cont statin (3) Annual physical exam: Code(s): Z00.00 - Encounter for general adult medical examination without abnormal findings Category: Medical Plan: well balanced diet, exercise, weight loss discussed (4) Breast CA: Comment: right, s/p lumpectomy, RTx at [facility] 10/2024, on Tamoxifen Code(s): C50.919 - Malignant neoplasm of unspecified site of unspecified female breast Category: Medical Plan: f/u with oncology at [facility] Orders: Orders Lipid Panel Today E78.5 - Hyperlipidemia, unspecified, I10 - Essential (primary) hypertension, Z00.00 - Encounter for general adult medical examination without abnormal findings TSH reflex Free T4 Today E78.5 - Hyperlipidemia, unspecified, I10 - Essential (primary) hypertension, Z00.00 - Encounter for general adult medical examination without abnormal findings UA w Microscopic Today E78.5 - Hyperlipidemia, unspecified, I10 - Essential (primary) hypertension, Z00.00 - Encounter for general adult medical examination without abnormal findings PT Evaluation and Treatment Today M25.532 - Pain in left wrist, M54.2 - Cervicalgia Comprehensive [place]. Panel Fast Today E78.5 - Hyperlipidemia, unspecified, I10 - Essential (primary) hypertension, Z00.00 - Encounter for general adult medical examination without abnormal findings Complete Blood Count Auto Diff Today E78.5 - Hyperlipidemia, unspecified, I10 - Essential (primary) hypertension, Z00.00 - Encounter for general adult medical examination without abnormal findings Medications: Discontinued estradiol 0.01%(0.1mg/gram) Discontinued Reason: Change Referral Type 1 g vaginal 2XW 42.5 grams 2RF
[2025-02-07 11:00] VITALS: BP 102/62; PULSE 59; RESP 18; TEMP 36.9; O2SAT 99; BMI 32.4
--- OUTSIDE RECORDS SUMMARY | 2025-02-07 12:21 | XMS_ITS | Encounter Summary ---
Author Organization [facility] Address [address] [place] [address] Care Team Providers Care Health Care Law Specialist Name Role Phone Physician, Pcp Unknown Primary Care Provider Nikkie vailable Encounter Details Date Type Department Care Team (Late st Contact Info) Description 11/22/2024 Lab Requisition [facility] - Main Lab [address] [facility] [place] [address] Alvino Best MD [address] [place] [address] Benign essential microscopic hematuria Social History Tobacco Use Types Packs/Day Years Used Date Smoking Tobacco: Never Smokeless Tobacco: Never Alcohol Use Standard Drinks/Week Comments Not Asked 0 (1 standard drink = 0.6 oz pur e alcohol) Comments Unknown Sex and Gender Information Value Date Recorded Sex Assigned at Not on file Legal Sex Female 6:11 PM EST Gender Identity Not on file Sexual Orientation Not on file documented as of this encounter Plan of Treatment Not on file documented as of this encounter Procedures Procedure Name Priority Date/Time Associated Diagnosis Comments AP OUTSIDE CONSULT Routine 11/15/2024 12 :00 AM EDT Benign essential microscopic hematuria documented in this encounter Results * Anatomic pathology outside consult (11/15/2024 12:00 AM EDT) Final Diagnosis A. Urine, Voided, [id number]: Negative for high grade urothelial carcinoma. Results of Uro[employer]ion fluorescence in situ hybridization (FISH) testing: CEP3: Normal CEP7: Normal CEP17: Normal LSI 9p21: Normal Interpretation: Normal profile Controls stained appropriately. Note: The results are intended as a screening device and should be interpreted in association with other clinical and pathological findings. 12/04/2024 7:35 AM EDT [facility] Clinical Information Benign essential microscopic hematuria R31.1 Urine Cytology/FISH (now) 12/04/2024 7:35 AM EDT [facility] Gross Description A. Urine, Voided, [id number]: Received one ThinPrep slide for cytology and one ThinPrep slide for UroVysion FISH 12/04/2024 7:35 AM EDT [facility] Disclaimer Unless otherwise specified, all tissue is 10% NB formalin fixed and paraffin embedded. Technical pathology services provided by [facility] at [address] [place] [address] [address], [place] [address] (CLIA #[id number]/Ghada Wright MD, Frame Hand) 12/04/2024 7:35 AM EDT [facility] Tissue Urine specimen from urethra / Unknown 11/15/2024 11/22/2024 10:39 AM EDT us Alvino Best MD LAB PATHOLOGY ORDERABLES Final Result [facility] [address] [place] [address], documented in this encounter Visit Diagnoses Diagnosis Benign essential microscopic hematuria documented in this encounter Care Teams Health Care Law Specialist Relationship Specialty Start Date End Date Physician, Pcp Unknown PCP - General 10/26/24 documented as of this encounter
--- OUTSIDE RECORDS SUMMARY | 2025-02-07 12:21 | XMS_ITS | Clinical Summary ---
Author Organization [address] Address [address] [place] [address] Phone Care Team Providers Care Arterial Embalmer Name Role Phone Physician, Pcp Unknown Primary Care Provider Nikkie vailable Encounters Date Type Department Care Team Description 11/22/2024 Lab Requisition [facility] Lab [address] [place] [address] Alvino Best MD Benign essential microscopic hematuria 11/22/2024 Lab Requisition [facility] Lab [address] [place] [address] Alvino Best MD Benign essential microscopic hematuria from Last 3 Months Surgical History Surgery Date Site/Laterality Comments OTHER SURGICAL HISTORY PROCEDURE: CA ARTHRD ANT INTERBODY MIN DSC THORACIC Family History Medical History Relation Name Comments Autoimmune disease Neg Hx Breast cancer Neg Hx Colon cancer Neg Hx Coronary artery disease Neg Hx Diabetes Neg Hx Heart attack Neg Hx Heart failure Neg Hx Hyperlipidemia Neg Hx Hypertension Neg Hx Mental illness Neg Hx Prostate cancer Neg Hx Sleep apnea Neg Hx Thyroid disease Neg Hx Social History Tobacco Use Types Packs/Day Years Used Date Smoking Tobacco: Never Smokeless Tobacco: Never Alcohol Use Standard Drinks/Week Comments Not Asked 0 (1 standard drink = 0.6 oz pur e alcohol) Comments Unknown Sex and Gender Information Value Date Recorded Sex Assigned at Not on file Legal Sex Female 6:11 PM EST Gender Identity Not on file Sexual Orientation Not on file Obstetrics History Plan of Treatment Health Maintenance Due Date Last Done Comments COVID-19 Vaccine (#1) 12/12/1964 DTaP,Tdap,and Td Vaccines (1 - Tdap) 12/12/1978 Pneumococcal Vaccine: 50+ Ye ars (1 of 2 - PCV) 12/12/1978 Zoster Vaccines (1 of 2) 12/12/1978 Cervical Cancer Screening: P ap Smear 12/12/1980 Cholesterol Screening (Lipid Panel) 05/15/2022 Colorectal Cancer Screening: Colonoscopy 05/15/2022 Hepatitis C Screening 05/15/2022 Medicare Annual Wellness Visit 05/15/2022 Osteoporosis Screening (Bone Density Screening) 05/15/2022 Social Influencers of Health Screening 05/15/2022 Depression Screening 06/13/2024 Hypertension/CHF/CAD Annual BMP Blood Test 10/24/2024 Falls Risk Assessment 12/12/2024 Influenza Vaccine (#1) 2025 Breast Cancer Screening 10/11/2026 10/11/2024 RSV Immunization Adult Patie nts (1 - 1-dose 75+ series) 12/12/2034 HIB Vaccines Aged Out No longer eligi ble based on patient's age to complete this topic HPV Vaccines Aged Out No longer eligi ble based on patient's age to complete this topic Hepatitis A Vaccines Aged Out No long er eligible based on patient's age to complete this topic Hepatitis B Vaccines Aged Out No long er eligible based on patient's age to complete this topic IPV Vaccines Aged Out No longer eligi ble based on patient's age to complete this topic MMR Vaccines Aged Out No longer eligi ble based on patient's age to complete this topic Meningococcal ACWY Vaccine Aged Out N o longer eligible based on patient's age to complete this topic Meningococcal B Vaccine Aged Out No l onger eligible based on patient's age to complete this topic RSV Immunization Patients Un rajani 20 months Aged Out No longer eligible b ased on patient's age to complete this topic Varicella Vaccines Aged Out No longer eligible based on patient's age to complete this topic Procedures Procedure Name Priority Date/Time Associated Diagnosis Comments AP OUTSIDE CONSULT Routine 11/15/2024 12 :00 AM EDT Benign essential microscopic hematuria from Last 3 Months Results * Anatomic pathology outside consult (11/15/2024 12:00 AM EDT) Final Diagnosis A. Urine, Voided, [id number]: Negative for high grade urothelial carcinoma. Results of UroVysion fluorescence in situ hybridization (FISH) testing: CEP3: Normal CEP7: Normal CEP17: Normal LSI 9p21: Normal Interpretation: Normal profile Controls stained appropriately. Note: The results are intended as a screening device and should be interpreted in association with other clinical and pathological findings. 12/04/2024 7:35 AM EDT [facility] Clinical Information Benign essential microscopic hematuria R31.1 Urine Cytology/FISH (now) 12/04/2024 7:35 AM EDT [facility] Gross Description A. Urine, Voided, [id number]: Received one ThinPrep slide for cytology and one ThinPrep slide for UroVysion FISH 12/04/2024 7:35 AM EDT [facility] Disclaimer Unless otherwise specified, all tissue is 10% NB formalin fixed and paraffin embedded. Technical pathology services provided by [facility] at [address] [facility] [address], [place] [address] (CLIA #[id number]/Ghada Wright MD, Feed Inspection Supervisor) 12/04/2024 7:35 AM EDT [facility] Tissue Urine specimen from urethra / Unknown 11/15/2024 11/22/2024 10:39 AM EDT Alvino Best MD LAB PATHOLOGY ORDERABLES Final Result [facility] [address] [place] [address], from Last 3 Months Insurance [employer] - [place] MEDICARE ADVANTAGE Care Teams Arterial Embalmer Relationship Specialty Start Date End Date Physician, Pcp Unknown PCP - General 10/26/24
--- OUTSIDE RECORDS SUMMARY | 2025-02-07 12:21 | XMS_ITS | Encounter Summary ---
Author Organization [facility] Address [address] [place] [address] Care Team Providers Care Drafter Directional Survey Name Role Phone Physician, Pcp Unknown Primary Care Provider Nikkie vailable Encounter Details Date Type Department Care Team (Late st Contact Info) Description 10/26/2024 Lab Requisition [facility] Main Lab [address] [facility] [place] [address] Alvino Best MD [address] [place] [address] Benign essential microscopic hematuria Social [...] Associated Diagnosis Comments AP OUTSIDE CONSULT Routine 10/22/2024 12 :00 AM EDT Benign essential microscopic hematuria documented in this encounter Results * Anatomic pathology outside consult (10/22/2024 12:00 AM EDT) Final Diagnosis A. Urine, Voided, ([id number]): Negative for high grade urothelial carcinoma. Results of UroVysion fluorescence in situ hybridization (FISH) testing: CEP3: Normal CEP7: Normal CEP17: Normal LSI 9p21: Normal Interpretation: Normal profile Controls stained appropriately. Note: The results are intended as a screening device and should be interpreted in association with other clinical and pathological findings. 11/09/2024 11:07 AM EDT [facility] Clinical Information Benign essential microscopic hematuria R31.1 Urine Cytology/FISH (now) 11/09/2024 11:07 AM EDT [facility] Gross Description A. Urine, Voided, ([id number]): Received one ThinPrep slide for cytology and one ThinPrep slide for UroVysion FISH 11/09/2024 11:07 AM EDT [facility] Disclaimer Unless otherwise specified, all tissue is 10% NB formalin fixed and paraffin embedded. Technical pathology services provided by [facility] at [address] [place] [address] [address], [place] [address] (CLIA #[id number]/Ghada Wright MD, Courseware Developer) 11/09/2024 11:07 AM EDT [facility] Tissue Urine specimen from urethra / Unknown 10/22/2024 10/26/2024 1:34 PM EDT us Alvino Best MD LAB PATHOLOGY ORDERABLES Final Result [facility] [address] [place] [address], documented in this encounter Visit Diagnoses Diagnosis Benign essential microscopic hematuria documented in this encounter Care Teams Drafter Directional Survey Relationship Specialty Start Date End Date Physician, Pcp Unknown PCP - General 10/26/24 documented as of this encounter
--- OUTSIDE RECORDS SUMMARY | 2025-02-07 12:21 | XMS_ITS | Encounter Summary ---
Author Organization [facility] Address [address] [place] [address] [place] [address] Phone Care Team Providers Care Developer Programmer Name Role Phone Tia Bates MD Primary Care Provider Tia Bates MD Unavailable [phone] Jensen Gale MD Unavailable Aniya Greene MD Unavailable Encounter Details Date Type Department Care Team (Late st Contact Info) Description 10/02/2024 Procedure Pass [facility] [place], Mammography, Sonya Lank Imaging Department [address] [place] [address] Social History Tobacco Use Types Packs/Day Years Used Date Smoking Tobacco: Never Smokeless Tobacco: Never Alcohol Use Standard Drinks/Week Comments Never 0 (1 standard drink = 0.6 oz pur e alcohol) Child or Family Care Answer Date Record ed Do you have problems with on e of the following making it difficult for you to work, study, or receive health care? No 10/04/2024 Education Answer Date Recorded Are you interested in help w ith more adult education (for example, completing high school, GED, job training, learning the Tuval[place] language, technical skills, or developing parenting skills)? No 10/04/2024 Are you concerned about learning? Not on file 10/04/2024 No 10/04/2024 Yes 10/04/2024 Food Answer Date Recorded Worried food would run out Not on file 10/04 Within the past 6 months the food we bought just didn't last and we didn't have enough money to get more. Sometimes True 09/12 Residential Stability Answer Date Recor ded What is your housing situation today? I have gardenia sing 10/04/2024 How many times have you move d in the past 12 months? Zero (I did not move) 10/04/2024 Paying for Meds Answer Date Recorded Do you have trouble paying for medicines? No 10/04/2024 Paying Utility Bills Answer Date Record ed Do you have trouble paying your heating or elect ricity bill? No 10/04/2024 Transportation Answer Date Recorded Has the lack of transportati on kept you from medical appointments or from getting medications? No 10/04/2024 Digital Access Answer Date Recorded No 11/07/2022 No 11/07/2022 Reliable internet access at home? Not on file 11/07/2022 Device with a working camera? Not on file Comments No Sex and Gender Information Value Date Recorded Sex Assigned at Female 09/17/2024 12:00 PM EDT Legal Sex Female 4:09 PM EDT Gender Identity Female 09/17/2024 12:00 PM EDT Sexual Orientation Straight 09/17/2024 12 :00 PM EDT documented as of this encounter Plan of Treatment Upcoming Encounters Date Type Department Care Team (Late st Contact Info) Description 11/09/2024 Procedure Pass [facility] [address] [facility] 2nd [place] [address] 04/10/2025 10:00 AM EDT Office Visit [facility], [facility], [facility] [place] [address] [facility] 9th [place] [address] Noelle Blackwell, JOSE [address] [place] [address] [email or web address] Guille Solis MD, PhD [address] [place] [address] [email or web address] 08/23/2025 11:00 AM EDT Appointment [facility] [address] [place] [address] 2nd [place] [address] Shania Sheriff MD, PhD [address] [place] [address] [email or web address] 08/23/2025 12:00 PM EDT Office Visit [facility], [facility] [place], [facility] [place] [address] [facility] 9th [place] [address] Vannessa Nichole PA-C [address] [place] [address] [email or web address] documented as of this encounter Visit Diagnoses Not on filedocumented in this encounter Care Teams Developer Programmer Relationship Specialty Start Date End Date Tia Bates MD [address] [facility] [place] [address] PCP - General Internal Medicine 09/17/24 Tia Bates MD [address] [facility] [place] [address] Internal Medicine 09/17/24 Jensen Gale MD [address] [place], [place] [address] [place] [address] Radiation Oncology 11/12/24 Aniya Greene MD [address] [place], [place] [address] [place] [address] [email or web address] Radiation Oncology 11/23/24 documented as of this encounter Additional Source Comments The information contained in this document represents components of the legal health record. It is not the complete legal health record.[facility]
--- OUTSIDE RECORDS SUMMARY | 2025-02-07 12:21 | XMS_ITS | Encounter Summary ---
Author Organization [facility] Address [address] [place] [address] Care Team Providers Care Casing Fluid Tender Name Role Phone Physician, Pcp Unknown Primary Care Provider Nikkie vailable Encounter Details Date Type Department Care Team (Late st Contact Info) Description 11/22/2024 Lab Requisition [facility] - Main Lab [address] [facility] [place] [address] Alvino Best MD [address] [place] [address] Benign essential microscopic hematuria Social [...] on file documented as of this encounter Visit Diagnoses Diagnosis Benign essential microscopic hematuria documented in this encounter Care Teams Casing Fluid Tender Relationship Specialty Start Date End Date Physician, Pcp Unknown PCP - General 10/26/24 documented as of this encounter
--- OUTSIDE RECORDS SUMMARY | 2025-02-07 12:22 | XMS_ITS | Encounter Summary ---
Author Organization [facility] Address [address] [facility] [address] [place] [address] Phone Care Team Providers Care Supervisor Area Name Role Phone Tia Bates MD Primary Care Provider [phone] Tia Bates MD Unavailable Jensen Gale MD Unavailable Aniya Greene MD Unavailable Encounter Details Date Type Department Care Team (Late st Contact Info) Description 10/30/2024 Procedure Pass [facility] 1st floor [address] [place] [address] Social History Tobacco Use Types Packs/Day Years [...] high school, GED, job training, learning the Arabic language, technical skills, or developing parenting skills)? [...] your housing situation today? I have gardenia lovett 10/04/2024 How many times have you move [...] with a working camera? Not on file Intimate Partner Violence Answer Date R ecorded Are you denied basic needs s uch as food, clothing, or medical care? Deferred 10/30/2024 In the past 12 months have y ou been in a relationship with a person who hurts, threatens, or tries to control you? No 10/30/2024 Are you denied basic needs s uch as food, clothing, or medical care? Deferred 10/30/2024 In the past 12 months have y ou been in a relationship with a person who hurts, threatens, or tries to control you? No 10/30/2024 Comments No Sex and Gender Information Value Date Recorded Sex Assigned at Female 09/17/2024 12:00 PM EDT Legal Sex Female 4:09 PM EDT Gender Identity Female 09/17/2024 12:00 PM EDT Sexual Orientation Straight 09/17/2024 12 :00 PM EDT documented as of this encounter Plan of Treatment Upcoming Encounters Date Type Department Care Team (Late st Contact Info) Description 11/09/2024 Procedure Pass [facility] Breast Imaging [address] [place] [phone] 04/10/2025 10:00 AM EDT Office Visit [facility], [facility], [address], [place] [address] Noelle Blackwell CNP [address] [place] [address] [email or web address] Guille Solis MD, PhD [address] [place] [address] [email or web address] 08/23/2025 11:00 AM EDT Appointment [facility] Breast Imaging [address] [place] [address] 2nd [place] [address] Shania Sheriff MD, PhD [address] [place] [phone] [email or web address] 08/23/2025 12:00 PM EDT Office Visit [facility], [facility], [address], [address] [place] [address] Vannessa Nichole PA-C [address] [place] [phone] [email or web address] documented as of this encounter Visit Diagnoses Not on filedocumented in this encounter Care Teams Supervisor Area Relationship Specialty Start Date End Date Tia Bates MD [address] [place] [place] [address] PCP - General Internal Medicine 09/17/24 Tia Bates MD [address] [place] [place] [address] Internal Medicine 09/17/24 Jensen Gale MD [address] [place] [address] [email or web address] Radiation Oncology 11/12/24 Aniya Greene MD [address] [place] [phone] [email or web address] Radiation Oncology 11/23/24 documented as of this encounter Additional Source Comments The information contained in this document represents components of the legal health record. It is not the complete legal health record.[facility]
--- OUTSIDE RECORDS SUMMARY | 2025-02-07 12:22 | XMS_ITS | Patient Health Record ---
Author Organization [employer] [facility] Address [address] [facility] [address] [place] [address] Care Team Providers Care Speeder Worker Name Role Phone Tia Bates MD Primary Care Provider Petera Geraldine Tinoco Unavailable [phone] Reason For Referral No Information Medications Medication SIG (Take, Route, Frequency, Duration) Notes Start Date End Date Status Metoprolol Tartrate 100MG 1 ORAL twice d aily; Duration: -3 Kp-MJ 07/26/2011 Active Spironolactone 1 ORAL daily; Durati on: -3 Kp-MJ 10/15/2013 Active Aygestin 5 mg 1 ORAL daily; Durati on: -3 Kp-MJ 08/03/2012 Active Lisinopril 40MG 1 ORAL daily; Durati on: -3 Kp-MJ 07/26/2011 Active Mirena 20 MCG/24HR Intrauterine Active Aygestin 5 MG 1 tablet Orally TWIC E A DAY; Duration: 30 days 09/16/2014 Active Problems Problem Type SNOMED Code ICD Code Onset Dates Problem Status W/U Status Risk Notes Problem Goiter (9231142) Goiter, unspecified (240.9) Active confirmed Major Problem Essential hypertension (29814475) Unspecified essential hypertension (401.9) Active confirmed Major Problem Postmenopausal bleeding (10257184) Postmenopausal bleeding (627.1) Active confirmed Diag Problem Menopausal symptom (94046384) Symptomatic menopausal or female climacteric states (627.2) Active confirmed Major Problem Degeneration of intervertebral disc (80615043) Degeneration of intervertebral disc, site unspecified (722.6) Active confirmed Major Plan Of Treatment No Information Insurance Providers Payer Name Payer Address Payer Phone Subscriber Number Group Number Insured Name Patient Relationship to Insured Coverage Start Date Coverage End Date [employer] [address] [place] [address] [id number] ISIDRO TINOCO Spouse - patient is the spouse of the insured Medical (General) History Medical History History ICD Code Postmenopausal bleeding 627.1 Unspecified essential hypertension 401.9 Goiter, unspecified 240.9 Degeneration of intervertebral disc, sit e unspecified 722.6 Surgical History Surgery Date(Month/Year) Thyroid Biopsy Colonoscopy Hospitalization History Reason Date(Month/Year) 2 Vaginal Deliveries
--- OUTSIDE RECORDS SUMMARY | 2025-02-07 12:22 | XMS_ITS | Clinical Summary ---
Author Organization [facility] Address [address] [place] [phone] Phone Care Team Providers Care [employer] Tender Name Role Phone Tia Bates MD Primary Care Provider [phone] Tia Bates MD Unavailable [phone] Jensen Gale MD Unavailable [phone] Aniya Greene MD Unavailable Allergies Active Allergy Reactions Criticality Noted Date Comments Simvastatin Myalgia 04/19/2022 Medications doxepin (ZONALON) 5 % cream doxepin 5 % topical cream Active hydroCHLOROthia zide (MICROZIDE) 12.5 mg capsule Take 12.5 mg by mouth every morning. Active latanoprost (XALATAN) 0.005 % ophthalmic solution Place 1 drop into each eye nightly at bedtime. 2 Active lidocaine (LIDODERM) 5 % APPLY TOPICALLY UP TO THREE PATCHES AT THE TIME, 12 HOURS ON, 12 HOURS OFF 2 Active lisinopril (PRINIVIL,ZESTR IL) 20 MG tablet Take 20 mg by mouth daily. Active lovastatin (MEVACOR) 20 MG tablet Take 10 mg by mouth nightly at bedtime. 1 Active metoprolol succinate (TOPROL-XL) 50 MG 24 hr tablet Take 50 mg by mouth daily. Active pantoprazole (PROTONIX) 40 MG tablet Take 20 mg by mouth daily. Active pregabalin (LYRICA) 75 MG capsule Take 75 mg by mouth 2 (two) times a day. 2 Active spironolactone (ALDACTONE) 25 MG tablet Take 12.5 mg by mouth daily. Active acetaminophen (TYLENOL) 500 MG tablet Take 1,000 mg by mouth every 8 (eight) hours as needed for pain (specific location in comments). Active oxyCODONE 5 MG immediate release tablet Take 1 tablet (5 mg total) by mouth every 4 (four) hours as needed for pain (specific location in comments) (Post-operativ e pain). Partial fill ok 2 tablet 5 Active tamoxifen (NOLVADEX) 20 MG tablet Take 1 tablet (20 mg total) by mouth daily. 90 tablet 3 5 11/22/19 26 Active Active Problems Problem Noted Date Diagnosed Date Malignant neoplasm of right female breast 2024 Solitary pulmonary nodule on lung CT 04/19/2022 Assessment & Plan (04/19/2022 2:23 PM EST): Incidental 6 mm right middle lobe pulmonary nodule. As reviewed with patient and , nodule is small, smooth margin and she is otherwise at low risk for malignancy. The one caveat to this is history of significant radiation exposure with unclear scatter to the lungs. She has had a prior thoracotomy but the location of the nodule is outside the postsurgical areas of scarring atelectasis. Reviewed with the patient the importance of close monitoring to ensure stability for least 24 months. I recommended a low-dose follow-up CT now, and if stable, a 24- month follow-up. If the nodule is smaller or resolved, no further follow-up will be recommended. Of course we discussed that if there was any enlargement of the nodule, further work-up would therefore be required. She would like to obtain a CT closer to home at [facility]. Pending results of that CT, will determine next steps. Hypertensive disorder Hyperlipidemia Chronic back pain Chronic neck pain Overview (10/17/2024): with limitation in ROM Encounters Date Type Department Care Team Description 11/23/2024 8:32 AM EDT - 11/23/2024 11:59 PM EDT Hospital Encounter [facility] Department of Radiation Oncology [address] [place] [address] Jensen Gale MD Discharge Disposition: Home or Self Care 11/21/2024 11:15 AM EDT Office Visit [facility], [facility], [address] [place] [address] Guille Solis MD, PhD Malignant neoplasm of right female breast, unspecified estrogen receptor status, unspecified site of breast (Primary Dx) 11/09/2024 12:30 PM EDT Office Visit [facility], [address] [place] [address] Vannessa Nichole PA-C Mittendorf, Elizabeth Ann, MD, PhD Malignant neoplasm of right breast in female, estrogen receptor positive, unspecified site of breast (Primary Dx) from Last 3 Months Family History Medical History Relation Comments Cancer Father Prostate cancer Father Colon cancer Maternal Aunt Heart attack Mother Stroke Mother Prostate cancer Paternal Uncle Malig Hyperthermia Neg Hx Pseudochol deficiency Neg Hx Relation Status Comments Father Maternal Aunt Mother (Age 63) [place] Paternal Uncle Social History Tobacco Use Types Packs/Day Years Used Date Smoking Tobacco: Never Smokeless Tobacco: Never Tobacco Cessation:Counseling Given: Not Answered Alcohol Use Standard Drinks/Week Comments Never 0 [...] high school, GED, job training, learning the [place] language, technical skills, or developing parenting skills)? [...] Orientation Straight 09/17/2024 12 :00 PM EDT Last Filed Vital Signs Vital Sign Reading Time Taken Comments Blood Pressure 130/68 11/23/2024 8:48 AM EDT Pulse 63 11/23/2024 8:48 AM EDT Temperature 36.9 C (98.4 F) 11/23/2024 8:48 AM EDT Respiratory Rate 16 11/21/2024 11:2 0 AM EDT Oxygen Saturation 96% 11/21/2024 11: 20 AM EDT Inhaled Oxygen Concentration - - Weight 96.6 kg (212 lb 15.4 oz) 025 11:20 AM EDT Height 167.6 cm (5' 6 ) 10/30/2024 8:06 AM EDT Body Mass Index 34.37 10/30/2024 8:06 AM EDT Plan of Treatment Upcoming Encounters Date Type Department Care Team (Late st Contact Info) Description 11/09/2024 Procedure Pass [facility] [address] [place] [phone] 04/10/2025 10:00 AM EDT Office Visit [facility], [address], [address] [place] [phone] Noelle Blackwell, POLICE COMMANDING OFFICER [address] [place] [phone] [email or web address] Guille Solis MD, PhD [address] [place] [phone] [email or web address] 08/23/2025 11:00 AM EDT Appointment [facility] [address] [place] [phone] Shania Sheriff MD, PhD [address] [place] [phone] [email or web address] 08/23/2025 12:00 PM EDT Office Visit [facility], [facility], [address], [address] [place] [phone] Vannessa Nichole PA-C [address] [place] [address] [email or web address] Health Maintenance Due Date Last Done Comments LIPID PANEL 1959 DEPRESSION SCREENING 1971 HEPATITIS C SCREENING 12/12/1977 HIV ONE-TIME SCREENING (18-65 YEARS) 12/12/1977 PNEUMOCOCCAL VACCINES (50+ years) (1 of 2 - PCV) 12/12/1978 COLOGUARD 12/12/2004 COLONOSCOPY 12/12/2004 COLORECTAL CANCER SCREENING 12/12/2004 FIT TEST 12/12/2004 FOBT 12/12/2004 SIGMOIDOSCOPY 12/12/2004 VIRTUAL COLONOSCOPY 12/12/2004 COVID-19 VACCINE ( season) 2024 04/23/2022, 07/03/2021, 09/23/2020, Additional history exists Adult Td,Tdap Booster 02/28/2024 02/27/2014 OSTEOPOROSIS SCREENING INITIAL (ONE-TIME) 12/12/2024 INFLUENZA VACCINE (#1) 2025 , 03/25/2023, 03/19/2022, Additional history exists BLOOD PRESSURE 05/23/2025 11/21/2024 CREATININE LEVEL 10/24/2025 10/24/2024 POTASSIUM LEVEL 10/24/2025 10/24/2024 MAMMOGRAM 09/10/2026 09/10/2024, 08/11, 12/01/2023, Additional history exists SCREENING FOR DIABETES 10/25/2027 10/24/2024 RSV VACCINE (1 - 1-dose 75+ series) 12/12/2034 ZOSTER VACCINES Completed 06/02/2023, 12/31/2022 SMOKING STATUS SCREENING (Once After 26 Yrs) Completed 10/17/2024 HEPATITIS A VACCINES Aged Out No long er eligible based on patient's age to complete this topic HIB VACCINES Aged Out No longer eligi ble based on patient's age to complete this topic MENINGOCOCCAL VACCINES (ACWY) Aged Out No longer eligible based on patient's age to complete this topic MENINGOCOCCAL VACCINES (B) Aged Out N o longer eligible based on patient's age to complete this topic Medical Devices Implanted Type Area Expansion Joint Finisher Device Identifier Shelf Expiration Date Model / Serial / Lot Seed Loose 7cm Needle W/Trailing Spacer For 2070 - [id number] Implanted:Qty: [facility] 10[facility]30/20[facility] [employer] [id number] / / Procedures Procedure Name Priority Date/Time Associated Diagnosis Comments BASIC METABOLIC PANEL Routine 10/24/2024 10:33 AM EDT Preop examination BI MAMMOGRAM OUTSIDE (NO INTERPRETATION) Routine 09/10/2024 12:00 AM EDT from Last 3 Months or Most Recently Relevant to Health Maintenance Results * Basic metabolic panel (10/24/2024 10:33 AM EDT) SODIUM 141 133 - 146 mmol/L [facility] CHLORIDE 104 96 - 108 mmol/L [facility] POTASSIUM 4.0 3.3 - 5.1 mmol/L [facility] CO2 25 21 - 35 mmol/L [facility] BUN 14 6 - 19 mg/dL [facility] CREATININE 0.50 0.5 - 1.5 mg/dL [facility] GLUCOSE 91 70 - 99 mg/dL [facility] CALCIUM 9.5 8.4 - 10.3 mg/dL [facility] EGFR 105 >59 mL/min/1.7 3m2 [facility] Comment:Estimated glomerular filtration rate calculated using the CKD-EPI refit equation. ANION GAP 16 10 - 20 mmol/L [facility] Blood 10/24/2024 10:3 3 AM EDT 10/24/2024 10:41 AM EDT Rosenda Mcbride [facility] BLOOD ORDERABLES Final Result [facility] [address] [place] [address] * Mammogram Outside (No Interpretation) (09/10/2024 12:00 AM EDT) Other Narrative [facility] - 10/04/2024 11:00 AM EDT This study is for PACS storage only and not for interpretation. Shania Sheriff MD, PhD IMG OUT SIDE IMAGING W/OUT INTERPRETATION Final Result [facility] from Last 3 Months or Most Recently Relevant to Health Maintenance Insurance MEDICARE PPO [place]UE [place] [address] [place] [address] MED[address]ARE PPO [place] [address] [place] [address] MEDICARE PPO BLUE REPLACEMENT MEDICARE PPO BLUE REPLACEMENT MEDICARE PPO BLUE REPLACEMENT MEDICARE PPO BLUE REPLACEMENT Care Teams [employer] T[employer] Relationship Specialty Start Date End Date Tia Bates MD [address] [place] [address] PCP - General Internal Medicine 09/17/24 Tia Bates MD [address] [place] [id number] Internal Medicine 09/17/24 Jensen Gale MD [address] [place] [phone] [email or web address] Radiation Oncology 11/12/24 Aniya Greene MD [address] [place] [phone] [email or web address] Radiation Oncology 11/23/24 Additional Source Comments The information contained in this document represents components of the legal health record. It is not the complete legal health record.[facility]
== END 2025-02-07 12:04 | disposition home or self-care (01) ==
LOC: HO.HMCC 10:58
PROVIDERS: PCP Internal Medicine; Visit Provider Internal Medicine
DX: Z00.00 Encounter for general adult medical examination without abnormal findings (principal); I10 Essential (primary) hypertension; E78.5 Hyperlipidemia, unspecified; C50.919 Malignant neoplasm of unspecified site of unspecified female breast

== ENCOUNTER → 2025-02-07 10:57 | Outpatient (BNVA) | payer MEDICARE, SELFPAY | PROVIDERS: PCP Internal Medicine; Visit Provider Internal Medicine | DX: Z00.00 Encounter for general adult medical examination without abnormal findings (principal); I10 Essential (primary) hypertension; E78.5 Hyperlipidemia, unspecified; Z85.3 Personal history of malignant neoplasm of breast | CPT/HCPCS: 99397 ==